=== PATIENT | female | born 1990 | race Caucasian/White ===

== ENCOUNTER 2018-01-25 19:08 | Inpatient (IN) | payer OTHER ==
[~2018-01-25 19:08] MED LIST: FENTANYL CITR 100 MCG/2 ML IV ONE; ROPIVACAINE HCL 100 ML IV PRN
--- OUTSIDE RECORDS SUMMARY | 2018-01-25 19:10 | XMS REPORT ---
:1990 Author Organization eClinicalWorks Care Team Providers Name Role Phone Chris Edwards Provider Role Unavailable Allergies No Known Allergies Problems Problem Type Condition Code Onset Dates Condition Status Assessment Supervision of high risk O09.93 Active in third trimester Problem Hypertension affecting in O16.2 Active second trimester Problem Supervision of high risk O09.92 Active in second trimester Assessment Hypertension affecting in O16.3 Active third trimester Problem Frequent epistaxis R04.0 Active Problem Seasonal allergic rhinitis, J30.2 Active unspecified trigger Problem Hypertension affecting in O16.3 Active third trimester Problem Supervision of high risk O09.93 Active in third trimester Problem Maternal hypertension in third O16.3 Active trimester Problem Allergic rhinitis J30.9 Active Problem 28 weeks gestation of Z3A.28 Active Medications No Known Medications Results No Known Results Summary Purpose eClinicalWorks Submission
--- OUTSIDE RECORDS SUMMARY | 2018-01-25 19:10 | XMS REPORT ---
:1990 Author Organization eClinicalWorks Care Team Providers Name Role Phone Duval, Na Provider Role Unavailable Allergies, Adverse Reactions, Alerts Substance Reaction Event Type codeine Info Not Available Drug Allergy Problems Problem Type Condition Code Onset Dates Condition Status Assessment Frequent epistaxis R04.0 Active Problem Hypertension affecting in O16.2 Active second trimester Problem Supervision of high risk O09.92 Active in second trimester Assessment 28 weeks gestation of Z3A.28 Active Assessment Seasonal allergic rhinitis, J30.2 Active unspecified trigger Problem Frequent epistaxis R04.0 Active Problem Seasonal allergic rhinitis, J30.2 Active unspecified trigger Problem Hypertension affecting in O16.3 Active third trimester Problem Supervision of high risk O09.93 Active in third trimester Problem Maternal hypertension in third O16.3 Active trimester Problem Allergic rhinitis J30.9 Active Problem 28 weeks gestation of Z3A.28 Active Medications Medication Code Code Instructions Start End Date Status Dosage System Date [facility] [id number] 4 MG Orally September 28, Active 1 tablet on every 8 hrs 2018 the tongue and allow to dissolve Results No Known Results Summary Purpose eClinicalWorks Submission
--- OUTSIDE RECORDS SUMMARY | 2018-01-25 19:10 | XMS REPORT ---
[...] Start End Date Status Dosage System Date Desireeliam [facility] 80358390402 4 MG Orally September 28, Active 1 tablet on every 8 hrs 2018 the tongue and allow to dissolve Results No Known Results Summary Purpose eClinicalWorks Submission
--- OUTSIDE RECORDS SUMMARY | 2018-01-25 19:10 | XMS REPORT ---
[...] End Date Status Dosage System Date Desireeliam [facility] 17132262752 4 MG Orally September 28, Active 1 tablet on every 8 hrs 2018 the tongue and allow to dissolve Results No Known Results Summary Purpose eClinicalWorks Submission
--- OUTSIDE RECORDS SUMMARY | 2018-01-25 19:10 | XMS REPORT ---
:1990 Author Organization eClinicalWorks Care Team Providers Name Role Phone Chris Edwards Provider Role Unavailable Allergies No Known Allergies Problems Problem Type Condition Code Onset Dates Condition Status Assessment Maternal hypertension in third O16.3 Active trimester Problem Supervision of high risk O09.92 Active in second trimester Assessment Supervision of high risk O09.93 Active in third trimester Problem 28 weeks gestation of Z3A.28 Active Problem Frequent epistaxis R04.0 Active Problem Allergic rhinitis J30.9 Active Problem Maternal hypertension in third O16.3 Active trimester Problem Hypertension affecting in O16.2 Active second trimester Problem Seasonal allergic rhinitis, J30.2 Active unspecified trigger Problem Supervision of high risk O09.93 Active in third trimester Medications No Known Medications Results No Known Results Summary Purpose eClinicalWorks Submission
--- OUTSIDE RECORDS SUMMARY | 2018-01-25 19:10 | XMS REPORT ---
:1990 Author Organization eClinicalWorks Care Team Providers Name Role Phone Chris Edwards Provider Role Unavailable Allergies No Known Allergies Problems Problem Type Condition Code Onset Dates Condition Status Problem Hypertension affecting in O16.2 Active second trimester Problem Supervision of high risk O09.92 Active in second trimester Assessment Hypertension affecting in O16.3 Active third trimester Assessment Supervision of high risk O09.93 Active in third trimester Problem Frequent epistaxis R04.0 Active [...] End Date Status Dosage System Date Desireeliam [facility] [id number] 4 MG Orally September 28, Active 1 tablet on every 8 hrs 2018 the tongue and allow to dissolve Results No Known Results Summary Purpose eClinicalWorks Submission
[2018-01-25] MEDS ORDERED: Ringers Lactate 1,000 ML IV PRN (20:07)
[2018-01-25] MEDS ORDERED: PENICILLIN G POT 5 MU/100 ML BAG IV ONE (20:08)
[2018-01-25] MEDS ORDERED: PENICILLIN 5 MU in NA CHLORIDE 0.9% 100 ML IV ONE (20:16)
[2018-01-25 20:34] LABS: RPR Titer ND
[2018-01-25 20:40] LABS: Absolute Lymphocytes (CBC) 3.5 K/uL (0.7-4.9); Absolute Neutrophil 12.1 K/uL (1.8-8.0); Basophils % 0.5 % (0-1.3); Eosinophils % 0.7 % (0-4.4); Hematocrit 32.2 % (36.0-45.0); Lymphocytes % 20.8 % (15.3-44.8); MCH 23.4 pg (27.0-35.0); MPV 8.3 fL (7.6-11.3); Monocytes % 5.9 % (3.3-12.3); RBC Red Blood Cell Count 4.41 M/uL (3.86-4.86)
[2018-01-25] MEDS ORDERED: MAGNESIUM SULF/STERILE WATER 1,000 ML IV ONE (20:44)
[2018-01-25 20:45] LABS: Urine Appearance CLEAR; Urine Bilirubin NEGATIVE (NEG); Urine Blood NEGATIVE (NEG); Urine Color YELLOW; Urine Glucose NEGATIVE (NEG); Urine Protein NEGATIVE (NEG); Urine Urobilinogen 0.2 mg/dL (0.2-1.0); Urine pH 6.5 (5.0-7.0)
[2018-01-25 20:48] LABS: Urine Microscopic Reflex NO UMIC
[2018-01-25 20:55] LABS: ALT/SGPT 17 U/L (12-78); AST/SGOT 24 U/L (15-37); Albumin 2.8 g/dL (3.4-5.0); Alkaline Phosphatase 163 U/L (45-117); BUN Blood Urea Nitrogen 8 mg/dL (7-18); Bicarbonate 20 mmol/L (21-32); Bilirubin Direct < 0.1 mg/dL (0-0.2); Bilirubin Total 0.1 mg/dL (0.2-1.0); Glucose Level 75 mg/dL (74-106); Protein, Total 6.9 g/dL (6.4-8.2); Sodium Level 138 mmol/L (136-145); Uric Acid 4.3 mg/dL (2.6-6.0)
[2018-01-25] MEDS ORDERED: Ringers Lactate 1,000 ML IV SCH (21:00)
[2018-01-25] MEDS ORDERED: OXYTOCIN/LR 20 UNIT/1,000 ML BAG IV SCH (21:00)
[2018-01-25] MEDS ORDERED: FENTANYL CITR 100 MCG/2 ML ONE (21:38)
[2018-01-25] MEDS ORDERED: ROPIVACAINE HCL 100 ML IV ONE (21:38)
[2018-01-25 21:41] LABS: Protime INR 0.9
[2018-01-25] MEDS ORDERED: NA CHLORIDE 0.9% 200 ML IV ONE (22:51)
[2018-01-25] MEDS ORDERED: PENICILLIN G POT 5 MU/VIAL IV ONE (22:51)
[2018-01-25 23:53] LABS: RPR (Rapid Plasma Reagin) NON-REACT (NON-REACT)
[2018-01-26] MEDS ORDERED: PENICILLIN 2.5 MU in NA CHLORIDE 0.9% 100 ML IV SCH (00:01)
[2018-01-26 01:04] VITALS: BMI 34.2
[2018-01-26] MEDS ORDERED: LIDOCAINE 2% MPF 5 ML VIAL ONE (02:53)
[2018-01-26] MEDS ORDERED: CARBOPROST TROME 250 MCG/ML IM ONE (02:53)
[2018-01-26] MEDS ORDERED: DOCUSATE NA/SENNA CONC 1 TAB PO PRN (03:41)
[2018-01-26] MEDS ORDERED: ONDANSETRON 4 MG (ODT) TAB PO PRN (03:41)
[2018-01-26] MEDS ORDERED: ACETAMINOPHEN 500 MG TAB PO PRN (03:41)
[2018-01-26] MEDS ORDERED: Oxycodone HCl/Acetaminophen 1 TAB TAB PO PRN (03:41)
[2018-01-26] MEDS ORDERED: METHYLERGONOVINE 0.2 MG TAB PO PRN (03:41)
[2018-01-26] MEDS ORDERED: BISACODYL 10 MG RECTAL SUPP RECT PRN (03:41)
--- NOTE | 2018-01-26 03:50 | P.OP ---
Date of Service: 01/26/18 Findings and Operative Technique Patient delivered a viable male in cephalic presentation on 01/26/18 at 0320 AM over a midline episiotomy with a nuchal cord x 1 that was manually reduced. Nose and mouth were suctioned with a suction bulb. Cord was clamped and cut and was placed on mother's abdomen for skin to skin bonding. Attention was then turned to the placenta which was delivered with gentle traction. Episiotomy was noted to be a second degree which was repaired with a 2.0 vicryl in usual fashion. EBL was 250 cc. APGARS were 8/9. 's weight was found to be 6 lb 9 ounces. First stage of labor was 5 hours and 43 minutes. Second stage of labor was 20 minutes. Magnesium sulfate will be discontinued at 8AM. Labetalol will be restarted for chronic hypertension.
--- NOTE | 2018-01-26 05:10 | HP ---
Date of Admission: 01/25/2018 History Of Present Illness: Desirae is a 27-year-old, 5, para 1-0-3-1 who presents at 36 weeks and 6 days gestation for induction of labor due to superimposed preeclampsia. The patient was seen at the [facility] [place] 's office today and was reporting elevated blood pressures with blurry vision, headache and seeing spots. Therefore, he notified me immediately and recommended that she be delivered within 24 hours. The patient then presented here to Labor and Delivery and was found to be 3-4 cm dilated. Rupture of membranes was performed. Clear fluid was noted. The patient denies vaginal bleeding, was not leaking any fluid prior to admission, has been reporting irregular contractions. The patient has obtained care with me beginning at 8 weeks' gestation and has been compliant with all her visits. She has hypertension pre-existing therefore she has been on labetalol 100 mg twice a day and also has been taking baby aspirin. Due to her history of recurrent loss, she was supplemented with progesterone up to 12 weeks' gestation. She is considered a high-risk . Ultrasound done at the [facility] office today indicates LORI is 16, approximate weight is 6 pounds, vertex presentation. BPP is 8/8. See record for further details. Past Medical History: Includes depression and anxiety. Past Surgical History: Includes D and C x2 and childbirth. Social History: The patient is to the father of the baby. Denies tobacco, alcohol or drug use. Ob History: She had a prior delivery at 38 weeks. Length of labor was 12 hours , weight was 7 pounds 5 ounces, male infant delivered vaginally, induced due to hypertension. Family History: Significant for diabetes, hypertension, increased cholesterol, ovarian cancer. Physical Examination: Vital Signs: On admission, blood pressure is 147/75, respirations 18, afebrile , pulse is 88. General: The patient resting in bed, anxious and in mild pain. Head and Neck: Normocephalic, atraumatic. Heart: Regular rate and rhythm. Respiratory: Symmetric nonlabored breathing. Abdomen: Gravid. Extremities: Bilateral lower extremities no clubbing, cyanosis, or edema. Vaginal exam: 3-4 cm dilated, 60% effaced, -3 station. Rupture of membranes performed. Clear fluid noted. scalp electrode placed. heart rate monitoring is baseline of 140, moderate variability, no recurrent decelerations, accelerations noted, category II tracing. [place], contractions are occurring every 3-5 minutes. Mild intensity. Labs: Pending. Preeclamptic labs have been drawn. Assessment And Plan: Desirae is a 27-year-old 5, para 1-0-3-1 at 36 weeks and 6 days gestation with chronic hypertension, superimposed severe preeclampsia presents for induction of labor. Today, she denies any headache or visual changes, at this time. She states they were all present yesterday. She is being induced for severe preeclampsia. Rupture of membranes has been performed. Pitocin has been started. Magnesium sulfate will be started. Epidural will be placed momentarily. Anticipate a vaginal . BISI Voice ID: [id number] MTDD
[2018-01-26] MEDS: Oxycodone HCl/Acetaminophen 1 TAB TAB PO PRN ×3 (05:25→21:03)
[2018-01-26] MEDS: IBUPROFEN 200 MG TAB PO PRN ×2 (08:12→16:00)
[2018-01-26] MEDS: LABETALOL HCL 100 MG TAB PO SCH ×2 (08:43→21:05)
[2018-01-27] MEDS: Oxycodone HCl/Acetaminophen 1 TAB TAB PO PRN ×2 (03:51→09:30)
[2018-01-27 07:31] VITALS: BP 130/64; TEMP 97
[2018-01-27 08:08] LABS: Absolute Lymphocytes (CBC) 4.6 K/uL (0.7-4.9); Absolute Monocytes 0.6 K/uL (0.1-1.3); Absolute Neutrophil 5.3 K/uL (1.8-8.0); Basophils % 0.5 % (0-1.3); Eosinophils % 1.9 % (0-4.4); Hematocrit 30.6 % (36.0-45.0); Lymphocytes % 42.8 % (15.3-44.8); MCV 73.6 fL (80-100); MPV 7.8 fL (7.6-11.3); Monocytes % 5.9 % (3.3-12.3); RBC Red Blood Cell Count 4.15 M/uL (3.86-4.86)
[2018-01-29 03:32] LABS: HBsAG Nonreactive (Nonreactive)
--- NOTE | 2018-02-02 00:33 | P.DS ---
Admission Date: 01/25/18 Discharge Date: 01/26/18 Disposition: ROUTINE DISCHARGE Discharge Condition: GOOD Brief History of Present Illness: See H&P Hospital Course: Patient did well following the delivery. Patient blood pressure has been well controlled. She is bonding well with the baby. She is tolerating a regular diet. She is voiding without difficulty. Pain is well controlled. Vital Signs/Physical Exam: Temp Pulse Resp BP Pulse Ox 97.0 F 72 20 130/64 01/27/18 07:30 01/27/18 07:30 01/27/18 07:30 01/27/18 07:30 General: Alert, In no apparent distress HEENT: Atraumatic Neck: Supple Respiratory: Normal air movement Cardiovascular: No edema, Normal pulses Gastrointestinal: Soft and benign (fundus firm) Musculoskeletal: No clubbing, No swelling Integumentary: No rashes, No breakdown Laboratory Data at Discharge: WBC 10.8 K/uL (4.3-10.9) D 01/27/18 07:58 Hgb 9.5 g/dL (12.0-15.0) L 01/27/18 07:58 Hct 30.6 % (36.0-45.0) L 01/27/18 07:58 Plt Count 396 K/uL (152-406) 01/27/18 07:58 PT 10.6 SECONDS (9.5-12.5) 01/25/18 21:12 INR 0.90 01/25/18 21:12 APTT 22.8 SECONDS (24.3-36.9) L 01/25/18 21:12 Sodium 138 mmol/L (136-145) 01/25/18 19:50 Potassium 4.0 mmol/L (3.5-5.1) 01/25/18 19:50 BUN 8 mg/dL (7-18) 01/25/18 19:50 Creatinine 0.50 mg/dL (0.55-1.3) L 01/25/18 19:50 Glucose 75 mg/dL (74-106) 01/25/18 19:50 Uric Acid 4.3 mg/dL (2.6-6.0) 01/25/18 19:50 Total Bilirubin 0.1 mg/dL (0.2-1.0) L 01/25/18 19:50 AST 24 U/L (15-37) 01/25/18 19:50 ALT 17 U/L (12-78) 01/25/18 19:50 Alkaline Phosphatase 163 U/L (45-117) H 01/25/18 19:50 Home Medications: Folic Acid 1 tab PO DAILY 01/26/18 Labetalol HCl 1 tab PO BID 01/26/18 Potassium Chloride 1 tab PO DAILY 01/26/18 Vits #33/Iron/FA/Dha [Select-Ob + Dha Pack] 1 tab PO DAILY 01/26/18 Diet: Regular Activity: No lifting more than 10 lbs Followup: Chris Edwards, [ACTIVE - CAN ADMIT] - (Follow up with Dr. Edwards in 6 weeks. Call and make appointment.)
== END 2018-01-27 10:00 | disposition home health service (06) | DRG 775 ==
LOC: 2ND-WC 19:08
PROVIDERS: ADMIT Student in an Organized Health Care Education/Training Program; ATTEND Student in an Organized Health Care Education/Training Program
PROC: 10907ZC Drainage of Amniotic Fluid, Therapeutic from Products of Conception, Via Natural or Artificial Opening (ICD-10-PCS; principal; 2018-01-25)
PROC: 10E0XZZ Delivery of Products of Conception, External Approach (ICD-10-PCS; 2018-01-26)
PROC: 0W8NXZZ Division of Female Perineum, External Approach (ICD-10-PCS; 2018-01-26)
DX: O11.4 Pre-existing hypertension with pre-eclampsia, complicating childbirth (principal); O69.81X0 Labor and delivery complicated by cord around neck, without compression, not applicable or unspecified; Z3A.36 36 weeks gestation of pregnancy; Z37.0 Single live birth
CPT/HCPCS: 36415; 80048; 80076; 81003; 84550; 85025; 85610; 85730; 86592; 86850; 86900; 86901; 87340; 88307; J2590; J2795; J3010; J3475

== ENCOUNTER 2018-03-25 12:32 | Emergency (ER) | payer OTHER ==
--- OUTSIDE RECORDS SUMMARY | 2018-03-25 12:34 | XMS REPORT ---
[...] End Date Status Dosage System Date Desireeliam [facility] [id number] 4 MG Orally September 28, Active 1 tablet on every 8 hrs 2018 the tongue and allow to dissolve Results No Known Results Summary Purpose eClinicalWorks Submission
--- OUTSIDE RECORDS SUMMARY | 2018-03-25 12:34 | XMS REPORT ---
[...] Start End Date Status Dosage System Date [facility] [id number] 4 MG Orally September 28, Active 1 tablet on every 8 hrs 2018 the tongue and allow to dissolve Results No Known Results Summary Purpose eClinicalWorks Submission
--- OUTSIDE RECORDS SUMMARY | 2018-03-25 12:34 | XMS REPORT ---
:1990 Author Organization eClinicalWorks Care Team Providers Name Role Phone Chris Edwards Provider Role Unavailable Allergies No Known Allergies Problems Problem Type Condition Code Onset Dates Condition Status Problem Hypertension affecting in O16.2 Active second trimester Problem Supervision of high risk O09.92 Active in second trimester Problem Frequent epistaxis R04.0 Active Problem Seasonal allergic rhinitis, J30.2 Active unspecified trigger Problem Hypertension affecting in O16.3 Active third trimester Problem Supervision of high risk O09.93 Active in third trimester Problem Maternal hypertension in third O16.3 Active trimester Problem Allergic rhinitis J30.9 Active Problem 28 weeks gestation of Z3A.28 Active Medications Medication Code Code Instructions Start End Status Dosage System Date Date CitraNatal 90 [facility] 29818046998 90-1 & 300 MG February 12, Active as directed DHA Orally 2018 Results No Known Results Summary Purpose TellyinicalWorks Submission
--- OUTSIDE RECORDS SUMMARY | 2018-03-25 12:34 | XMS REPORT ---
[...] End Date Status Dosage System Date Desireeliam [facility] [id number] 4 MG Orally September 28, Active 1 tablet on every 8 hrs 2018 the tongue and allow to dissolve Results No Known Results Summary Purpose eClinicalWorks Submission
--- OUTSIDE RECORDS SUMMARY | 2018-03-25 12:34 | XMS REPORT ---
[...] End Date Status Dosage System Date Desireeliam [facility] 53227580364 4 MG Orally September 28, Active 1 tablet on every 8 hrs 2018 the tongue and allow to dissolve Results No Known Results Summary Purpose eClinicalWorks Submission
--- OUTSIDE RECORDS SUMMARY | 2018-03-25 12:35 | XMS REPORT ---
:1990 Author Organization eClinicalWorks Care Team Providers Name Role Phone NoemirowankianChris Provider Role Unavailable Allergies, Adverse Reactions, Alerts Substance Reaction Event Type codeine Info Not Available Drug Allergy Darvocet A500 Info Not Available Drug Allergy Benadryl Info Not Available Drug Allergy Problems Problem Type Condition Code Onset Dates Condition Status Problem Maternal hypertension in third O16.3 Active trimester Problem Allergic rhinitis J30.9 Active Problem Supervision of high risk O09.93 Active in third trimester Problem Acute vaginitis N76.0 Active Problem Encounter for routine Z39.2 Active follow-up Problem Other specified bacterial agents as B96.89 Active the cause of diseases classified elsewhere Problem Frequent epistaxis R04.0 Active Problem Seasonal allergic rhinitis, J30.2 Active unspecified trigger Problem Hypertension affecting in O16.3 Active third trimester Problem 28 weeks gestation of Z3A.28 Active Assessment Encounter for routine Z39.2 Active follow-up Assessment Acute vaginitis N76.0 Active Problem Hypertension affecting in O16.2 Active second trimester Assessment Other specified bacterial agents as B96.89 Active the cause of diseases classified elsewhere Problem Supervision of high risk O09.92 Active in second trimester Medications Medication Code Code Instructions Start End Status Dosage System Date Date Flagyl [facility] 74913016665 500 MG Orally Mar 11, Active 1 tablet every 12 hours 2017 Zofran ODT [facility] 70814954979 4 MG Orally September Active 1 tablet on every 8 hrs 2017 the tongue and allow to dissolve CitraNatal 90 [place] 70270843867 90-1 & 300 MG February 12, Active as directed DHA Orally 2017 Results Name Result Date Reference Range Unit Abnormality Flag URINALYSIS AUTO W/O SCOPE (27848) ----NIT neg [id number] ----URO 0.2 [id number] ----PROTEIN neg [id number] ----pH 6.0 [id number] ----BLO 1+ [id number] ----GLUCOSE neg [id number] ----LEODAN 1+ [id number] ----BILIRUBIN neg [id number] ----KETONES neg [id number] ----SPECIFIC GRAVITY 1.025 [id number] Summary Purpose eClinicalWorks Submission
--- NOTE | 2018-03-25 14:06 | ER ---
Nurse's Notes [facility] Name: Desirae Gracia Age: 27 yrs Sex: Female : 1990 Arrival Date: 03/25/2018 Time: 12:35 Bed 14 Private MD: Kristen Duval Diagnosis: Abscess of vaginal vault Presentation: 03/25 12:40 Presenting complaint: Patient states: She had a cyst on her vaginal that was drained aj1 one week ago, and told to follow up if it came back to have the cyst cut out in the OR. The cyst has come back, but her doctor is out of town so she was advised to come to the emergency room. Transition of care: patient was not received from another setting of care. Onset of symptoms was March 25, 2018. Risk Assessment: Do you want to hurt yourself or someone else? Patient reports no desire to harm self or others. Initial Sepsis Screen: Does the patient meet any 2 criteria? No. Patient's initial sepsis screen is negative. Does the patient have a suspected source of infection? No. Patient's initial sepsis screen is negative. Care prior to arrival: None. 12:40 Method Of Arrival: Ambulatory aj1 12:40 Acuity: CARMEN 4 aj1 Triage Assessment: 12:46 General: Appears in no apparent distress. uncomfortable, Behavior is calm, cooperative, aj1 appropriate for age. Pain: Complains of pain in pelvis Pain currently is 8 out of 10 on a pain scale. Neuro: Level of Consciousness is awake, alert, obeys commands. Cardiovascular: Patient's skin is warm and dry. Respiratory: Airway is patent Respiratory effort is even, unlabored, Respiratory pattern is regular, symmetrical. 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 - Social history:: Smoking status: Patient/guardian denies using tobacco. - Ebola Screening: : Patient denies travel to an Ebola-affected area in the 21 days before illness onset. Screenin:23 Abuse screen: Denies threats or abuse. Nutritional screening: No deficits noted. tw2 Tuberculosis screening: No symptoms or risk factors identified. Fall Risk None identified. Assessment: 13:10 Reassessment: pt states "i went to an OB DrLeny and she drained the cyst and she told me tw2 if it came back that I need to have surgery to remove it, now I called her again and she is out of town and my insurance runs out today, I was told an OB can come to the ER and drain it", provider notified. General: Appears in no apparent distress. well groomed, Behavior is calm, cooperative, appropriate for age. Pain: Complains of pain in pelvis. Neuro: Level of Consciousness is awake, alert, obeys commands, Oriented to person, place, time, situation. Cardiovascular: Denies chest pain, shortness of breath, Patient's skin is warm and dry. Respiratory: Airway is patent Respiratory effort is even, unlabored, Respiratory pattern is regular, symmetrical. GI: No signs and/or symptoms were reported involving the gastrointestinal system. : Reports vaginal pain. EENT: No signs and/or symptoms were reported regarding the EENT system. Derm: No signs and/or symptoms reported regarding the dermatologic system. Musculoskeletal: Range of motion: intact in all extremities. 14:20 Reassessment: Patient appears in no apparent distress at this time. No changes from tw2 previously documented assessment. Patient and/or family updated on plan of care and expected duration. Pain level reassessed. Patient is alert, oriented x 3, equal unlabored respirations, skin warm/dry/pink. Vital Signs: 12:46 BP 125 / 71; Pulse 70; Resp 18; Temp 97.4; Pulse Ox 97% on R/A; Weight 89.36 kg (R); aj1 Height 5 ft. 7 in. (170.18 cm); 14:19 BP 136 / 55; Pulse 61; Resp 17; Pulse Ox 98% on R/A; tw2 12:46 Body Mass Index 30.85 (89.36 kg, 170.18 cm) aj1 ED Course: 12:35 Patient arrived in ED. sb2 12:36 Kristen Duval MD is Private Physician. sb2 12:44 Triage completed. aj1 12:46 Arm band placed on. aj1 13:10 Bed in low position. Call light in reach. Pulse ox on. NIBP on. tw2 13:20 Nadine Chang, RN is Primary Nurse. tw2 13:27 Rajeev Correa PA is PHCP. jr8 13:27 Gustavo Barton MD is Attending Physician. jr8 14:20 No provider procedures requiring assistance completed. Patient did not have IV access tw2 during this emergency room visit. Administered Medications: No medications were administered Outcome: 14:06 Discharge ordered by . jr8 14:20 Patient left the ED. tw2 14:20 Discharged to home ambulatory. tw2 14:20 Condition: stable 14:20 Discharge instructions given to patient, Instructed on discharge instructions, follow up and referral plans. medication usage, Demonstrated understanding of instructions, follow-up care, medications, Prescriptions given X 1. Signatures: Jessica Kaur RN RN aj1 Rajeev Correa PA PA jr8 Nadine Chang, RN RN tw2 Sima Clemons sb2 Corrections: (The following items were deleted from the chart) 16:22 14:20 Discharge instructions given to patient, Instructed on discharge instructions, tw2 follow up and referral plans. medication usage, Demonstrated understanding of instructions, follow-up care, medications, Prescriptions given X 2, tw2
--- NOTE | 2018-03-25 14:06 | EDPHYS ---
Physician Documentation [facility] Name: Desirae Gracia Age: 27 yrs Sex: Female : 1990 Arrival Date: 03/25/2018 Time: 12:35 Bed 14 Private MD: Kristen Duval ED Physician Gustavo Barton HPI: 03/25 14:02 This 27 yrs old Female presents to ER via Ambulatory with complaints of jr8 Abscess. 14:02 Onset: The symptoms/episode began/occurred gradually, 2 week(s) ago. Associated signs jr8 and symptoms: The patient has no apparent associated signs or symptoms. Modifying factors: the symptoms are alleviated by nothing, the symptoms are aggravated by movement. Severity of symptoms: At their worst the symptoms were mild, in the emergency department the symptoms are unchanged. The patient has experienced a previous episode. Patient stated that she has an intravaginal inclusion cyst that was drained about 2 weeks ago. Stated that it is back again. Her OB is out of town and said to come to nearest ED for regulatory services consultant gynecology to remove it. 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 - Social history:: Smoking status: Patient/guardian denies using tobacco. - Ebola Screening: : Patient denies travel to an Ebola-affected area in the 21 days before illness onset. ROS: 14:02 Eyes: Negative for injury, pain, redness, and discharge, ENT: Negative for injury, jr8 pain, and discharge, Neck: Negative for injury, pain, and swelling, Cardiovascular: Negative for chest pain, palpitations, and edema, Respiratory: Negative for shortness of breath, cough, wheezing, and pleuritic chest pain, Abdomen/GI: Negative for abdominal pain, nausea, vomiting, diarrhea, and constipation, Back: Negative for injury and pain, MS/Extremity: Negative for injury and deformity, Skin: Negative for injury, rash, and discoloration, Neuro: Negative for headache, weakness, numbness, tingling, and seizure. 14:02 : Positive for pelvic pain. Exam: 14:02 Chest/axilla: Normal chest wall appearance and motion. Nontender with no deformity. jr8 No lesions are appreciated. Cardiovascular: Regular rate and rhythm with a normal S1 and S2. No gallops, murmurs, or rubs. Normal PMI, no JVD. No pulse deficits. Abdomen/GI: Soft, non-tender, with normal bowel sounds. No distension or tympany. No guarding or rebound. No evidence of tenderness throughout. Skin: Warm, dry with normal turgor. Normal color with no rashes, no lesions, and no evidence of cellulitis. MS/ Extremity: Pulses equal, no cyanosis. Neurovascular intact. Full, normal range of motion. Neuro: Awake and alert, GCS 15, oriented to person, place, time, and situation. Cranial nerves II-XII grossly intact. Motor strength 5/5 in all extremities. Sensory grossly intact. Cerebellar exam normal. Normal gait. Vital Signs: 12:46 BP 125 / 71; Pulse 70; Resp 18; Temp 97.4; Pulse Ox 97% on R/A; Weight 89.36 kg (R); aj1 Height 5 ft. 7 in. (170.18 cm); 14:19 BP 136 / 55; Pulse 61; Resp 17; Pulse Ox 98% on R/A; tw2 12:46 Body Mass Index 30.85 (89.36 kg, 170.18 cm) aj1 MDM: 13:27 Patient medically screened. jr8 14:02 Data reviewed: vital signs, nurses notes, and as a result, I will discharge patient. jr8 Data interpreted: Pulse oximetry: on room air is 97 %. Interpretation: normal. Counseling: I had a detailed discussion with the patient and/or guardian regarding: the historical points, exam findings, and any diagnostic results supporting the discharge/admit diagnosis, the need for outpatient follow up, an OB/Gyne specialist, to return to the emergency department if symptoms worsen or persist or if there are any questions or concerns that arise at home. ED course: Discussed with patient that Gynecology will not come down for an out patient procedure to remove inclusion cyst. That we are more then happy to look at it and drain it if possible. Patient would rather wait until her OB is back in town. Will put on antibiotics for the time being. . Administered Medications: No medications were administered Disposition: 16:50 Co-signature as Attending Physician, Gustavo Barton MD. rn Disposition: 03/25/18 14:06 Discharged to Home. Impression: Abscess of vaginal vault . - Condition is Stable. - Discharge Instructions: Skin Abscess. - Prescriptions for Clindamycin HCl 300 mg Oral Capsule - take 1 capsule by ORAL route every 6 hours for 10 days; 40 capsule. - Medication Reconciliation Form, Thank You Letter, Antibiotic Education, Prescription Opioid Use form. - Follow up: Private Physician; When: 5 - 6 days; Reason: Recheck today's complaints, Continuance of care, Re-evaluation by your physician. - Problem is new. - Symptoms are unchanged. Signatures: Jessica Kaur RN RN aj1 Gustavo Barton MD MD rn Roszak, Josh, PA PA jr8 Nadine Chang RN RN tw2 Corrections: (The following items were deleted from the chart) 14:20 14:06 03/25/2018 14:06 Discharged to Home. Impression: Abscess of vaginal vault . tw2 Condition is Stable. Forms are Medication Reconciliation Form, Thank You Letter, Antibiotic Education, Prescription Opioid Use. Follow up: Private Physician; When: 5 - 6 days; Reason: Recheck today's complaints, Continuance of care, Re-evaluation by your physician. Problem is new. Symptoms are unchanged. jr8
[2018-03-25 14:30] VITALS: TEMP 97.4
[2018-03-25 14:32] VITALS: BP 136/55; O2SAT 98
== END 2018-03-25 14:20 | disposition home or self-care (01) ==
LOC: ER 12:32
DX: N76.0 Acute vaginitis (principal); Z88.5 Allergy status to narcotic agent; Z88.8 Allergy status to other drugs, medicaments and biological substances
CPT/HCPCS: 99283

== ENCOUNTER 2018-04-06 23:51 | Emergency (ER) | payer OTHER, SELFPAY ==
[2018-04-07] MEDS ORDERED: LIDOCAINE 1% MPF 2 ML AMPULE ONE (01:22)
[2018-04-07] MEDS ORDERED: FENTANYL CITR 100 MCG/2 ML ONE (01:22)
--- NOTE | 2018-04-07 01:45 | ER ---
Nurse's Notes [facility] Name: Desirae Gracia Age: 27 yrs Sex: Female : 1990 Arrival Date: 04/06/2018 Time: 23:51 Bed 20 Private MD: Diagnosis: CUTANEOUS ABSCESS OF LABIA MAJORA Presentation: 04/07 00:26 Presenting complaint: Patient states: she has an abscess to her left perineal area bb which is getting significantly bigger and is painful. Pt is 2 months post- and is breast feeding. She also has a vaginal abscess which her ob-oracle specialist I\\T\\D but it has come back she was told it would have to be "cut out" pt just finished a 10 day course of antibiotics for that. Transition of care: patient was not received from another setting of care. Onset of symptoms was April 05, 2018. Risk Assessment: Do you want to hurt yourself or someone else? Patient reports no desire to harm self or others. Initial Sepsis Screen: Does the patient meet any 2 criteria? No. Patient's initial sepsis screen is negative. Does the patient have a suspected source of infection? No. Patient's initial sepsis screen is negative. Care prior to arrival: None. 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 - Social history:: Smoking status: Patient/guardian denies using tobacco, Patient/guardian denies using alcohol, street drugs. - Ebola Screening: : No symptoms or risks identified at this time. Screenin:33 Abuse screen: Denies threats or abuse. Nutritional screening: No deficits noted. jd3 Tuberculosis screening: No symptoms or risk factors identified. Fall Risk Ambulatory Aid- None/Bed Rest/Nurse Assist (0 pts). Gait- Normal/Bed Rest/Wheelchair (0 pts) Mental Status- Oriented to own ability (0 pts). Total Villa Fall Scale indicates No Risk (0-24 pts). Assessment: 00:32 General: Appears uncomfortable, Behavior is calm, cooperative, appropriate for age. jd3 Pain: Complains of pain in groin Quality of pain is described as sharp, Also complains of nausea. Neuro: Level of Consciousness is awake, alert, obeys commands, Oriented to person, place, time, situation. Cardiovascular: Capillary refill < 3 seconds Patient's skin is warm and dry. Respiratory: Airway is patent Respiratory effort is even, unlabored, Respiratory pattern is regular, symmetrical, Denies shortness of breath. GI: Abdomen is round non-distended, Bowel sounds present X 4 quads. Abd is soft and non tender X 4 quads. Reports nausea. : No signs and/or symptoms were reported regarding the genitourinary system. EENT: No signs and/or symptoms were reported regarding the EENT system. Derm: Skin is intact, Skin is dry, Skin is normal, Skin temperature is warm. Musculoskeletal: Circulation, motion, and sensation intact. Range of motion: intact in all extremities. 00:51 Reassessment: Patient appears in no apparent distress at this time. No changes from jd3 previously documented assessment. Patient and/or family updated on plan of care and expected duration. Pain level reassessed. Patient is alert, oriented x 3, equal unlabored respirations, skin warm/dry/pink. 01:39 Reassessment: Patient appears in no apparent distress at this time. Patient and/or jd3 family updated on plan of care and expected duration. Pain level reassessed. Patient is alert, oriented x 3, equal unlabored respirations, skin warm/dry/pink. provider at bedside. 01:55 Reassessment: Patient appears in no apparent distress at this time. Patient and/or jd3 family updated on plan of care and expected duration. Pain level reassessed. Patient is alert, oriented x 3, equal unlabored respirations, skin warm/dry/pink. reported understanding of discharge instructions, even steady gait upon discharge. Vital Signs: 00:30 BP 144 / 79; Pulse 78; Resp 16 S; Temp 97.6(O); Pulse Ox 98% on R/A; Weight 89.36 kg bb (R); Height 5 ft. 7 in. (170.18 cm) (R); Pain 10/10; 00:51 BP 125 / 63; Pulse 72; Resp 16 S; Pulse Ox 97% on R/A; jd3 01:39 BP 125 / 63; Pulse 71; Resp 16 S; Pulse Ox 97% on R/A; jd3 00:30 Body Mass Index 30.85 (89.36 kg, 170.18 cm) isabela ED Course: 04/06 23:51 Patient arrived in ED. ds1 04/07 00:20 Yaniv Celestin, RN is Primary Nurse. jd3 00:30 Triage completed. bb 00:30 Arm band placed on Patient placed in an exam room, on a stretcher, on pulse oximetry. bb 00:33 Karolina Dubois FNP-C is PHCP. snw 00:33 Sean Lockwood MD is Attending Physician. snw 00:34 Patient has correct armband on for positive identification. Bed in low position. Call jd3 light in reach. Side rails up X 1. Adult w/ patient. 01:18 Inserted saline lock: 20 gauge in left antecubital area, using aseptic technique. Blood mt collected. 01:54 No provider procedures requiring assistance completed. IV discontinued, intact, jd3 bleeding controlled, No redness/swelling at site. Pressure dressing applied. Administered Medications: 01:22 Drug: fentaNYL (PF) 50 mcg Route: IVP; Site: left antecubital; jd3 01:54 Follow up: Response: No adverse reaction jd3 01:38 Drug: Lidocaine (1 %) 6 ml {Note: to bedside for Karolina GARRIDOP-C to administer..} jd3 Route: Infiltration; 01:54 Follow up: Response: No adverse reaction jd3 Outcome: 01:45 Discharge ordered by . snw 01:54 Discharged to home ambulatory, with family. jd3 01:54 Condition: stable 01:54 Discharge instructions given to patient, Instructed on discharge instructions, follow up and referral plans. medication usage, Demonstrated understanding of instructions, follow-up care, medications, Prescriptions given X 1. 01:57 Patient left the ED. jd3 Signatures: Karolina Dubois, HOT TAMALE MAN-C HOT TAMALE MAN-Csnw Sweta Chaparro ds1 Shanta Ann RN RN Mary Casey mt, Jonathon, RN RN jd3
--- NOTE | 2018-04-07 01:45 | EDPHYS ---
Physician Documentation [facility] Name: Desirae Gracia Age: 27 yrs Sex: Female : 1990 Arrival Date: 04/06/2018 Time: 23:51 Bed 20 Private MD: ED Physician Sean Lockwood HPI: 04/07 01:12 This 27 yrs old Female presents to ER via Ambulatory with complaints of Cyst snw In Groin. 01:12 Pt with known 'inclusion cyst' drained per Dr. Edwards. just finished 10th day of snw antibiotics. Pt states she noted a small knot to left labia majora 3 days ago and now over the last three hours it has become very painful and tripled in size. Onset: The symptoms/episode began/occurred gradually, 3 day(s) ago, and became persistent today. Severity of symptoms: At their worst the symptoms were moderate. The patient has experienced a previous episode. The patient has been recently seen by a physician: recent delivery and I\T\D per Dr. Samaniego. 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 - Social history:: Smoking status: Patient/guardian denies using tobacco, Patient/guardian denies using alcohol, street drugs. - Ebola Screening: : No symptoms or risks identified at this time. ROS: 01:11 Constitutional: Negative for fever, chills, and weight loss, Eyes: Negative for injury, snw pain, redness, and discharge, ENT: Negative for injury, pain, and discharge, Neck: Negative for injury, pain, and swelling, Cardiovascular: Negative for chest pain, palpitations, and edema, Respiratory: Negative for shortness of breath, cough, wheezing, and pleuritic chest pain, Abdomen/GI: Negative for abdominal pain, nausea, vomiting, diarrhea, and constipation, Back: Negative for injury and pain, : Negative for injury, bleeding, discharge, and swelling, MS/Extremity: Negative for injury and deformity, Neuro: Negative for headache, weakness, numbness, tingling, and seizure. 01:11 Skin: Positive for abscess, of the left labia majora. Exam: 01:11 Constitutional: This is a well developed, well nourished patient who is awake, alert, snw and in no acute distress. Head/Face: Normocephalic, atraumatic. Eyes: Pupils equal round and reactive to light, extra-ocular motions intact. Lids and lashes normal. Conjunctiva and sclera are non-icteric and not injected. Cornea within normal limits. Periorbital areas with no swelling, redness, or edema. ENT: Nares patent. No nasal discharge, no septal abnormalities noted. Tympanic membranes are normal and external auditory canals are clear. Oropharynx with no redness, swelling, or masses, exudates, or evidence of obstruction, uvula midline. Mucous membranes moist. Neck: Trachea midline, no thyromegaly or masses palpated, and no cervical lymphadenopathy. Supple, full range of motion without nuchal rigidity, or vertebral point tenderness. No Meningismus. Chest/axilla: Normal chest wall appearance and motion. Nontender with no deformity. No lesions are appreciated. Cardiovascular: Regular rate and rhythm with a normal S1 and S2. No gallops, murmurs, or rubs. Normal PMI, no JVD. No pulse deficits. Respiratory: Lungs have equal breath sounds bilaterally, clear to auscultation and percussion. No rales, rhonchi or wheezes noted. No increased work of breathing, no retractions or nasal flaring. Abdomen/GI: Soft, non-tender, with normal bowel sounds. No distension or tympany. No guarding or rebound. No evidence of tenderness throughout. Back: No spinal tenderness. No costovertebral tenderness. Full range of motion. MS/ Extremity: Pulses equal, no cyanosis. Neurovascular intact. Full, normal range of motion. Neuro: Awake and alert, GCS 15, oriented to person, place, time, and situation. Cranial nerves II-XII grossly intact. Motor strength 5/5 in all extremities. Sensory grossly intact. Cerebellar exam normal. Normal gait. Psych: Awake, alert, with orientation to person, place and time. Behavior, mood, and affect are within normal limits. 01:11 Skin: Appearance: normal except for affected area, abscess, that is small, of the left labia majora, with induration. Vital Signs: 00:30 BP 144 / 79; Pulse 78; Resp 16 S; Temp 97.6(O); Pulse Ox 98% on R/A; Weight 89.36 kg bb (R); Height 5 ft. 7 in. (170.18 cm) (R); Pain 10/10; 00:51 BP 125 / 63; Pulse 72; Resp 16 S; Pulse Ox 97% on R/A; jd3 01:39 BP 125 / 63; Pulse 71; Resp 16 S; Pulse Ox 97% on R/A; jd3 00:30 Body Mass Index 30.85 (89.36 kg, 170.18 cm) bb MDM: 00:34 Patient medically screened. snw 01:48 Data reviewed: vital signs, nurses notes. Data interpreted: Pulse oximetry: on room air snw is 97 %. Interpretation: normal. Counseling: I had a detailed discussion with the patient and/or guardian regarding: the historical points, exam findings, and any diagnostic results supporting the discharge/admit diagnosis, the need for outpatient follow up, for definitive care. Special discussion: Based on the history and exam findings, there is no indication for further emergent testing or inpatient evaluation. I discussed with the patient/guardian the need to see the OB Gyne specialist for further evaluation of the symptoms. 04/07 01:05 Order name: I\T\D Setup; Complete Time: 01:14 snw Administered Medications: 01:22 Drug: fentaNYL (PF) 50 mcg Route: IVP; Site: left antecubital; jd3 01:54 Follow up: Response: No adverse reaction jd3 01:38 Drug: Lidocaine (1 %) 6 ml {Note: to bedside for Karolina MARCOS to administer..} jd3 Route: Infiltration; 01:54 Follow up: Response: No adverse reaction jd3 Disposition: 04:23 Co-signature as Attending Physician, Sean Lockwood MD. pkl Disposition: 04/07/18 01:45 Discharged to Home. Impression: CUTANEOUS ABSCESS OF LABIA MAJORA. - Condition is Stable. - Discharge Instructions: Skin Abscess, How to Take a Sitz Bath. - Prescriptions for Diclofenac Sodium 75 mg Oral Tablet Sustained Release - take 1 tablet by ORAL route 2 times per day; 30 tablet. - Medication Reconciliation Form, Thank You Letter, Antibiotic Education, Prescription Opioid Use form. - Follow up: Private Physician; When: 2 - 3 days; Reason: Recheck today's complaints, Continuance of care, Re-evaluation by your physician. Follow up: Emergency Department; When: As needed; Reason: Worsening of condition. Signatures: Sean Lockwood MD MD pkl Therrien, Shelly, HITCH TECHNICIAN-C HITCH TECHNICIAN-Csnw Shanta Ann RN RN Yaniv Dudley RN RN jd3 Corrections: (The following items were deleted from the chart) 01:57 01:45 04/07/2018 01:45 Discharged to Home. Impression: CUTANEOUS ABSCESS OF LABIA jd3 MAJORA. Condition is Stable. Forms are Medication Reconciliation Form, Thank You Letter, Antibiotic Education, Prescription Opioid Use. Follow up: Private Physician; When: 2 - 3 days; Reason: Recheck today's complaints, Continuance of care, Re-evaluation by your physician. Follow up: Emergency Department; When: As needed; Reason: Worsening of condition. snw
[2018-04-07 02:09] VITALS: TEMP 97.6
[2018-04-07 02:10] VITALS: BP 125/63; O2SAT 97
--- OUTSIDE RECORDS SUMMARY | 2018-04-07 08:16 | XMS REPORT ---
[...] Start End Date Status Dosage System Date [facility] [id number] 4 MG Orally September 28, Active 1 tablet on every 8 hrs 2018 the tongue and allow to dissolve Results No Known Results Summary Purpose eClinicalWorks Submission
--- OUTSIDE RECORDS SUMMARY | 2018-04-07 08:16 | XMS REPORT ---
[...] End Status Dosage System Date Date Flagyl [facility] [place]NOTE 2] [id number] 500 MG Orally Mar 11, Active 1 tablet every 12 hours 2017 Zofran ODT [facility] [place]NOTE 2] [id number] 4 MG Orally September Active 1 tablet on every 8 hrs 2017 the tongue and allow to dissolve CitraNatal 90 [place] [id number] 90-1 & 300 MG February 12, Active as directed DHA Orally 2017 Results Name Result Date Reference Range Unit Abnormality Flag URINALYSIS AUTO W/O SCOPE (41469) ----NIT neg [id number] ----URO 0.2 [id number] ----PROTEIN neg [id number] ----pH 6.0 [id number] ----BLO 1+ [id number] ----GLUCOSE neg [id number] ----LEODAN 1+ [id number] ----BILIRUBIN neg [id number] ----KETONES neg [id number] ----SPECIFIC GRAVITY 1.025 [id number] Summary Purpose eClinicalWorks Submission
--- OUTSIDE RECORDS SUMMARY | 2018-04-07 08:16 | XMS REPORT ---
[...] Date Desireeliam [facility] [id number] 4 MG Orally September 28, Active 1 tablet on every 8 hrs 2018 the tongue and allow to dissolve Results No Known Results Summary Purpose eClinicalWorks Submission
--- OUTSIDE RECORDS SUMMARY | 2018-04-07 08:16 | XMS REPORT ---
[...] End Date Status Dosage System Date Desireeliam [facility] [id number] 4 MG Orally September 28, Active 1 tablet on every 8 hrs 2018 the tongue and allow to dissolve Results No Known Results Summary Purpose eClinicalWorks Submission
--- OUTSIDE RECORDS SUMMARY | 2018-04-07 08:16 | XMS REPORT ---
[...] Status Dosage System Date Date CitraNatal 90 [facility] [id number] 90-1 & 300 MG February 12, Active as directed DHA Orally 2018 Results No Known Results Summary Purpose [employer] Submission
--- OUTSIDE RECORDS SUMMARY | 2018-04-07 08:16 | XMS REPORT ---
[...] End Date Status Dosage System Date Desireeliam [facility] [id number] 4 MG Orally September 28, Active 1 tablet on every 8 hrs 2018 the tongue and allow to dissolve Results No Known Results Summary Purpose eClinicalWorks Submission
== END 2018-04-07 01:57 | disposition home or self-care (01) ==
LOC: ER 23:51
DX: O86.19 Other infection of genital tract following delivery (principal); Z88.5 Allergy status to narcotic agent; Z88.8 Allergy status to other drugs, medicaments and biological substances
CPT/HCPCS: 96374; 99284; J2001; J3010

== ENCOUNTER 2021-10-22 18:06 | Emergency (ER) | payer OTHER ==
--- OUTSIDE RECORDS SUMMARY | 2021-10-22 18:10 | XMS REPORT | Continuity of Care Document ---
:1990 Author Organization [facility] t Address [address] [place] [address] Care Team Providers Name Role Phone Valerie Duval Attending Clinician Unavailable Jamaal Singh Attending Clinician Unavailable Eligio Chavez Attending Clinician Unavailable Vicente Siddiqui Attending Clinician Unavailable BRODERICK Attending Clinician Unavailable Amilcar_Jamaal Attending Clinician Unavailable Jamaal Singh Admitting Clinician Unavailable Valerie Gage Admitting Clinician Unavailable BRODERICK Admitting Clinician Unavailable Amilcar_Jamaal Admitting Clinician Unavailable Payers Payer Name Policy Type Policy Number Effective Date Expiration Date [facility] [id number] 2018 CHOICE (MEDICAID 00:00:00 REPLACEMENT - HMO) [facility] [id number] STRATEGIES Problems This patient has no known problems. Allergies, Adverse Reactions, Alerts Allergy Allergy Status Severity Reaction(s) Onset Inactive Treating Comm ents Source Name Type Date Date Clinician diphenhy DA Active MO hallucinatio HC A dramine ns 1-27 Clear 00:00: Castillo 00 [facility] propoxyp DA Active MO [facility] 9- Clear 00:00: Castillo 00 [facility] diphenhy DA Active U 2020-0 [facility] dramine 9 Clear 00:00: Castillo [facility] propoxyp DA Active MO H/A, 2020-0 [facility] hene ITCHING, 04-25 Clear [place] 00:00: Castillo [facility] diphenhy DA Active U hallucinatio 2020-0 HC A dramine ns 04-25 Clear 00:00: [place] [facility] propoxyp DA Active MO 2020-0 [facility] hene 8 Clear 00:00: [place] [facility] diphenhy DA Active U 2020-0 [facility] dramine 03-26 Clear 00:00: [place] [facility] propoxyp DA Active MO H/A, 2020-0 [facility] hene ITCHING, 03-26 Clear [place] 00:00: [place] [facility] diphenhy DA Active U hallucinatio 2020-0 HC A dramine ns 03-26 Clear 00:00: [place] [facility] propoxyp DA Active MO 2020-0 [facility] hene 8 Clear 00:00: [place] [facility] diphenhy DA Active U 2020-0 [facility] dramine 8 Clear 00:00: [place] [facility] propoxyp DA Active MO H/A, 2020-0 [facility] hene ITCHING, 8 Clear [place] 00:00: [place] [facility] diphenhy DA Active U hallucinatio 2020-0 HC A dramine ns 8 Clear 00:00: [place] [facility] propoxyp DA Active MO 2020-0 [facility] hene 8 Clear 00:00: [place] [facility] diphenhy DA Active U 2020-0 [facility] dramine 8 Clear 00:00: [place] [facility] propoxyp DA Active MO H/A, 2020-0 [facility] hene ITCHING, 8 Clear [place]ES 00:00: [place] [facility] diphenhy DA Active U hallucinatio 2020-0 HC A dramine ns 8-20 Clear 00:00: [place] [facility] propoxyp DA Active MO 2020-0 [facility] hene 8-14 Clear 00:00: [place] [facility] acetamin DA Active MO 2019-0 [facility] ophen 8-14 Clear 00:00: Castillo 00 [facility] diphenhy DA Active U 2020-0 [facility] dramine 8-14 Clear 00:00: Castillo 00 [facility] propoxyp DA Active MO H/A, [facility] hene ITCHING, 8-14 Clear NIGHTMARES 00:00: Castillo 00 [facility] acetamin DA Active MO H/A, H[facility] ophen ITCHING, 8-14 Clear NIGHTMARES 00:00: Castillo 00 [facility] diphenhy DA Active U hallucinatio 2019- HC A dramine ns 8-14 Clear 00:00: [place] [facility] [place] [address] [facility] dramine 2-10 Clear 00:00: Castillo 00 [facility] diphenhy DA Active U hallucinatio 2017-0 HC A dramine ns 2-10 Clear 00:00: Castillo 00 [facility] propoxyp DA Active MO 2015-07 [facility] hene 2-16 Clear 00:00: Castillo 00 [facility] acetamin DA Active MO 2015-07 [facility] ophen 2-16 Clear 00:00: Castillo 00 [facility] propoxyp DA Active MO H/A, 2015-07 [facility] hene ITCHING, 2-16 Clear NIGHTMARES 00:00: Castillo 00 [facility] acetamin DA Active MO H/A, 2015-07 [facility] ophen ITCHING, 2-16 Clear NIGHTMARES 00:00: Castillo 00 [facility] codeine Adverse Active Info Not [facility] Reaction Available [facility] Darvocet Adverse Active Info Not [facility] A500 Reaction Available [facility] Benadryl Adverse Active Info Not [facility] Reaction Available [facility] ent [facility] Medications Ordered Filled Start Stop Current Ordering Indication Dosage Frequency Signature Comments Components Source Medication Medication Date Date Medication? Clinician (SIG) Name Name Clotrimazol Clotrimazol 2017-07 Yes Na Duval [address] [facility] e e 2-20 [facility]atio [facility] 00 affected [facility] ent Clinics Procedures Procedure Date / Time Performed Performing Clinician [facility] vicente [id number] 2020-03-26 00:00:00 AKAED [facility] [id number] 2020-03-26 00:00:00 AKAED [facility] Encounters Start End Encounter Admission Attending Care Care Encounter Source Date/Time Date/Time Type Type Clinicians Facility Department ID 2021-10-22 Outpatient Duval, Na STLMLC STLMLC [id number] [facility] 14:43:00 [id number] [facility] 2021-10-14 Inpatient EL Samantha HCACL DAYS [id number] [facility] 14:00:00 Edesiri [id number] [facility] 2021-08-22 Inpatient EL Samantha HCACL DAYS [id number] [facility] 14:30:00 Edesiri [id number] [facility] 2021-08-21 Outpatient Duval, Na STLMLC STLMLC [id number] [facility] 13:52:23 [id number] [facility] 2021-08-21 Outpatient Duval, Na STLMLC STLMLC [id number] [facility] [facility] 12:08:33 [id number] [facility] 2021-08-21 Outpatient Duval, Na STLMLC STLMLC [id number] [facility] 12:08:15 [id number] [facility] 2021-08-21 Outpatient Duval, Na STLMLC STLMLC [id number] [facility] 12:07:41 [id number] [facility] 2021-08-21 Inpatient EL Samantha HCACL DAYS [id number] [facility] 07:30:00 Edesiri [id number] [facility] 2021-08-19 Inpatient EL Samantha HCACL DAYS [id number] [facility] 09:00:00 Edesiri [id number] [facility] 2021-08-15 Inpatient EL Samantha HCACL DAYS [id number] [facility] 07:30:00 Edesiri [id number] [facility] 2021-08-13 Inpatient EL Akajagbor, HCACL DAYS [id number] [facility] 14:30:00 Edesiri [id number] [facility] 2021-06-12 Outpatient Samantha, HCACL HCACL [id number] [facility] 12:30:58 Edesiri 18 [facility] 2020-04-27 Inpatient Akrodneygbor, HCACL DAYS [id number] [facility] 12:30:00 Edesiri [facility] 2020-04-25 Inpatient Akrodneygbor, HCACL DAYS [id number] [facility] 11:30:00 Edesiri [facility] 2020-03-21 Inpatient Marvingbsade, HCACL JEEVAN [id number] [facility] 13:25:00 Edesiri [id number] [facility] 2020-03-15 Inpatient Venkatesh HCACL JEVEAN [id number] [facility] 15:15:00 Gabi [facility] 2020-03-09 Inpatient Venkatesh HCACL JEEVAN [id number] [facility] 18:24:00 Gabi [id number] [facility] 2020-03-08 Inpatient Artur, HCACL JEEVAN [id number] [facility] 16:14:00 Rosemarie [id number] [facility] 2021-10-16 2021-10-16 Outpatient RAMIREZ Singh, HCACL HCACL [id number] [facility] 11:37:00 11:37:00 Edesiri 31 [facility] 2021-10-16 2021-10-16 Outpatient EL Samantha, HCACL DAYS [id number] [facility] 11:37:00 11:37:00 Edesiri [id number] [facility] 2021-08-26 2021-08-26 Outpatient RAMIREZ Singh, HCACL DAYS [id number] [facility] 08:30:00 08:30:00 Edesiri [id number] [facility] 2021-06-19 2021-06-19 Outpatient FRANCHESKA WEBER [facility] [id number] [place] 12:15:00 12:15:00 HN [id number] da [facility] [place] h Program 2021-06-12 2021-06-12 Outpatient ALLA Andino OUTD [id number] [facility] 11:13:00 11:13:00 Edesiri [id number] [facility] 2021-01-11 2021-01-11 [facility] [id number] 2020-06-20 2020-06-20 [facility] [id number] 2020-06-13 2020-06-13 Outpatient Raju_P MMG MMG [id number] [place] 02:34:00 02:34:00 [id number] 2020-04-24 2020-04-24 [facility] [id number] [facility] 2020-04-24 2020-04-24 [facility] [id number] [facility] 2020-03-26 2020-03-26 Outpatient ALLA Andino OUTD [id number] [facility] 11:00:00 11:00:00 Edesiri [id number] [facility] 2020-02-23 2020-02-23 Outpatient ALLA Andino OUTD [id number] [facility] 15:16:00 15:16:00 Edesiri [id number] [facility] 2018-11-12 2018-11-12 [facility] [id number] [facility] 13:48:00 13:48:00 t [employer] [facility] Medicine Medicine Outpati ent Clinics 2018-10-14 2018-10-14 [facility] [id number] 09:06:00 09:06:00 [facility] Outpati ent Clinics 2018-08-16 2018-08-16 [facility] [id number] 14:57:00 14:57:00 t [facility] L [facility] - Care Clinic [facility] 2018-07-14 2018-07-14 [facility] [id number] 10:23:00 10:23:[address] [facility] - Drive [facility] 2018-07-14 2018-07-14 [facility] [id number] 08:30:00 08:30:[address] Luke s - Drive [facility] 2018-05-10 2018-05-10 [facility] [id number] 15:47:00 15:47:00 t [facility] 2018-05-05 2018-05-05 [facility] [id number] 13:45:00 13:45:00 [facility] 2018-03-15 2018-03-15 [facility] [id number] 14:30:00 14:30:00 t [facility] L es - Care Clinic [facility] 2018-03-11 2018-03-11 [facility] [id number] 11:00:00 11:00:00 t Women's Women's Luke s - Care Care Clinic [facility] 2018-02-12 2018-02-12 [facility] [id number] 13:42:00 13:42:00 t Women's Women's Luke s - Care Care Clinic [facility] 2018-01-21 2018-01-21 [facility] [id number] 14:30:00 14:30:00 t Women's Women's Luke s - Care Care Clinic [facility] 2018-01-14 2018-01-14 [facility] [id number] 14:30:00 14:30:00 t Women's Women's Luke s - Care Care Clinic [facility] 2017-12-31 2017-12-31 Outpatient Amparo Christensent [id number] 14:15:00 14:15:00 t Women's Women's Luke s - Care Care [facility] 2017-12-17 2017-12-17 Outpatient Amparo Christensent [id number] 14:15:00 14:15:00 [facility] [employer] 2017-11-26 2017-11-26 Outpatient Amparo Christensent [id number] 15:00:00 15:00:00 t Women's Women's ke s - Care Care [facility] [employer] 2017-11-26 2017-11-26 Outpatient Amparo Christensent [id number] 10:00:00 10:00:00 t [employer] [place] s - Drive [facility] Results Test Description Test Time Test Comments Results Result Comments Source Novel Coronavirus 2019 Inhouse 2021-10-15 08:51:00 Test Item Value Reference Range Interpretation Comme nts Novel Coronavirus 2018 Negative Negative Posit rafael results are indicative of the Inhouse (test code = presenc e [id number] RNA, clinical COVNONPUI) correlation wit h patient historyand other diagnosti c information is necessary to de terminepatient infection status. Positiv e results do not rule outbacterial in fection or co-infection with other viru ses. Negative results do not preclude SA RS-CoV-2 infection andshould not b e used as the sole basis for patient man agementdecisions. Negative result s must be combined with otherclinical o bservations, patient history, and ep idemiologicalinformation. Detection of SA RS-CoV-2 RNA may be affected bysamp le collection methods, storage conditi ons, and/or stageof infection. Mildred l RNA mutations, vaccinations, a ntiviraltherapeutics, antibiotics, ch emotherapeutic orimmunosuppres karol drugs have not been evaluated for e ffectson detection. Results are for the identification of SARS-CoV-2 RNA usingreal-time (RT) polymerase ju n reaction (PCR) technologyfor t he qualitative detection of nucleic acid s from [id number]-PcE-2 virus and diagn osis of SARS-CoV-2 virusinfection. It is an Emergency Use Authorization ( EUA) testauthorized by the U.S. FDA. HCG SERUM [id number] 15:12:00 Test Item Value Reference Range Interpretation Comments HCG SERUM QUAL (test code = SERUM NEGATIVE NEGATIVE HCGQL) CBC W/AUTO [id number] 15:07:00 Test Item Value Reference Range Interpretation Comments WHITE BLOOD CELL (test code = 7.9 x10 3/uL 4.5-11.0 N WBC) RED BLOOD CELL (test code = 4.54 x10 6/uL 3.54-5.02 N RBC) HEMOGLOBIN (test code = HGB) 12.0 g/dL 11.0-15.0 N HEMATOCRIT (test code = HCT) 38.9 % 33.0-45.0 N MEAN CELL VOLUME (test code = 85.7 fL 81.0-99.0 N MCV) MEAN CELL HGB (test code = MCH) 26.4 pg 27.0-33.0 L MEAN CELL HGB CONCETRATION 30.8 g/dL 33.0-37.0 L (test code = MCHC) RED CELL DISTRIBUTION WIDTH CV 13.6 % 11.5-14.5 N (test code = RDW) RED CELL DISTRIBUTION WIDTH SD 42.6 fL 37.0-54.0 N (test code = RDW-SD) PLATELET COUNT (test code = 323 x10 3/uL 150-400 N PLT) MEAN PLATELET VOLUME (test code 10.1 fL 7.0-9.0 H = MPV) NEUTROPHIL % (test code = NT%) 46.0 % 56.0-77.0 L IMMATURE GRANULOCYTE % (test 0.1 % 0.0-2.0 N code = IG%) LYMPHOCYTE % (test code = LY%) 44.7 % 14.0-32.0 H MONOCYTE % (test code = MO%) 6.7 % 4.8-9.0 N EOSINOPHIL % (test code = EO%) 2.2 % 0.3-3.7 N BASOPHIL % (test code = BA%) 0.3 % 0.0-2.0 N NUCLEATED RBC % (test code = 0.0 % 0-0 N NRBC%) NEUTROPHIL # (test code = NT#) 3.63 x10 3/uL 2.0-7.6 N IMMATURE GRANULOCYTE # (test 0.01 x10 3/uL 0.00-0.03 N code = IG#) LYMPHOCYTE # (test code = LY#) 3.53 x10 3/uL 1.0-3.8 N MONOCYTE # (test code = MO#) 0.53 x10 3/uL 0.1-0.8 N EOSINOPHIL # (test code = EO#) 0.17 x10 3/uL 0.0-0.2 N BASOPHIL # (test code = BA#) 0.02 x10 3/uL 0.0-0.2 N NUCLEATED RBC # (test code = 0.00 x10 3/uL 0.0-0.1 N NRBC#) MANUAL DIFF REQUIRED (test code NO = MDIFF) Novel Coronavirus 2018 [id number] 06:39:00 Test Item Value Reference Range Interpretation Comments Novel Coronavirus Negative Negative Positive r esults are 2019 Inhouse (test indicativ e of the presence code = COVNONPUI) ofSARS-CoV -2 RNA, clinical correlation wit h patient historyand othe r diagnostic info rmation is necessary to determinepatien t infection status. Positiv e results do not rule out bacterial infection or co -infection with other viru ses. Negative result s do not preclude SARS-C oV-2 infection andsh ould not be used as the tank e basis for patient managementdecis ions. Negative result s must be combined with otherclinical observations, p atient history, and epidemiological information . Detection of SARS-CoV-2 RNA may be affe cted bysample collec tion methods, storag e conditions, and /or stageof infection. Mildred l RNA mutations, vacc inations, antiviraltherap eutics, antibiotics, chemotherapeuti c orimmunosuppres karol drugs have not been e valuated for effectson d etection. Results are for the identification of SARS-CoV-2 RNA usingreal-time (RT) polymerase ju n reaction (PCR) technolog yfor the qualitative det ection of nucleic acids f rom [id number]-1 v irus and diagnosis of SA RS-CoV-2 virusinfection. It is an Emergency Use Authorization ( EUA) testauthorized by the U.S. FDA. HCG SERUM [id number] 16:15:00 Test Item Value Reference Range Interpretation Comments HCG SERUM QUAL (test code = SERUM NEGATIVE NEGATIVE HCGQL) CBC W/AUTO [id number] 16:06:00 Test Item Value Reference Range Interpretation Comments WHITE BLOOD CELL (test code = 6.7 x10 3/uL 4.5-11.0 N WBC) RED BLOOD CELL (test code = 4.53 x10 6/uL 3.54-5.02 N RBC) HEMOGLOBIN (test code = HGB) 12.2 g/dL 11.0-15.0 N HEMATOCRIT (test code = HCT) 38.8 % 33.0-45.0 N MEAN CELL VOLUME (test code = 85.7 fL 81.0-99.0 N MCV) MEAN CELL HGB (test code = MCH) 26.9 pg 27.0-33.0 L MEAN CELL HGB CONCETRATION 31.4 g/dL 33.0-37.0 L (test code = MCHC) RED CELL DISTRIBUTION WIDTH CV 13.5 % 11.5-14.5 N (test code = RDW) RED CELL DISTRIBUTION WIDTH SD 41.8 fL 37.0-54.0 N (test code = RDW-SD) PLATELET COUNT (test code = 324 x10 3/uL 150-400 N PLT) MEAN PLATELET VOLUME (test code 10.1 fL 7.0-9.0 H = MPV) NEUTROPHIL % (test code = NT%) 54.3 % 56.0-77.0 L IMMATURE GRANULOCYTE % (test 0.1 % 0.0-2.0 N code = IG%) LYMPHOCYTE % (test code = LY%) 36.4 % 14.0-32.0 H MONOCYTE % (test code = MO%) 7.0 % 4.8-9.0 N EOSINOPHIL % (test code = EO%) 1.9 % 0.3-3.7 N BASOPHIL % (test code = BA%) 0.3 % 0.0-2.0 N NUCLEATED RBC % (test code = 0.0 % 0-0 N NRBC%) NEUTROPHIL # (test code = NT#) 3.62 x10 3/uL 2.0-7.6 N IMMATURE GRANULOCYTE # (test 0.01 x10 3/uL 0.00-0.03 N code = IG#) LYMPHOCYTE # (test code = LY#) 2.43 x10 3/uL 1.0-3.8 N MONOCYTE # (test code = MO#) 0.47 x10 3/uL 0.1-0.8 N EOSINOPHIL # (test code = EO#) 0.13 x10 3/uL 0.0-0.2 N BASOPHIL # (test code = BA#) 0.02 x10 3/uL 0.0-0.2 N NUCLEATED RBC # (test code = 0.00 x10 3/uL 0.0-0.1 N NRBC#) MANUAL DIFF REQUIRED (test code NO = IFF) - US PELVIS [id number] 00:00:00 [facility] 1990 Sex: F Name: ALLISON CELESTE [facility] : 1990 Age/S: 31 / F [address] [place] [address] Unit #: [id number] Loc: [place] [address] Phys: Pankaj Singh MD Acct: [id number] Dis Date: Status: REG CLI PHONE #: [phone] Exam Date: 06/12/2021 1216 FAX #: [phone] Reason: AUB. EXAMS: CPT CODE: [id number] US PELVIS COMPLETE [id number] PROCEDURE INFORMATION: Exam: US Pelvis Complete, Transabdominal and US Pelvis, Transvaginal Exam date and time: 06/12/2021 11:31 AM Age: 31 years old Clinical indication: Other: Aub TECHNIQUE: Imaging protocol: Real-time transabdominal and transvaginal pelvic ultrasound (complete) with image documentation. Transvaginal imaging was used forbetter evaluation of the endometrium, adnexa, and/or cervix. COMPARISON: US BIOPHYS PROF 03/09/2020 7:05 PM FINDINGS: Uterus: The uterus measures 7.8 x 4.5 x 5.7cm and demonstrates a 1 cm endometrial stripe. Right ovary/adnexa: The right ovary measures 3.9 x 1.8 x 2.2 cm and demonstrates a 1.7 cm complex dominant follicle with some internal echoes and increased through transmission of sound. No mass. Normal ovarian blood flow. Left ovary/adnexa: The left ovary measures 2.9 x 1.8 x 1.1 cm. No mass. Normal ovarian blood flow. Intraperitoneal space: No intraperitoneal fluid. Urinary bladder: Normal. IMPRESSION: 1. No acute findings. 2. Complex dominant follicle involvingthe right ovary, possibly hemorrhagic. at 1230 Reported and signed by: Destin Mackey M.D. CC: Pankaj Singh MD; Latrice Gage MD Technologist: Estela Ramsey RDMS(AB) Trnscb Date/Time: 06/12/2021 (1230) [email or web address] Orig Print D/T: S: 06/12/2021 (1230) Probe: PAGE 1 Signed Report- US TRANSVAGINAL NON [id number] 00:00:00 [facility] : 1990 Sex: F Name: ALLISON CELESTE [facility] : 1990 Age/S: 31 / F [address] [place] [address] Unit #: [id number] Loc: [place] [address] Phys: Pankaj Singh MD Acct: [id number] Dis Date: Status: REG CLI PHONE #: [phone] Exam Date: 06/12/2021 1216 FAX #: [phone] Reason: AUB. EXAMS: CPT CODE: [id number] [place] [id number] PROCEDURE INFORMATION: Exam: US Pelvis Complete, Transabdominal and US Pelvis, Transvaginal Exam date and time: 06/12/2021 11:31 AM Age: 31 years old Clinical indication: Other: Aub TECHNIQUE: Imaging protocol: Real-time transabdominal and transvaginal pelvic ultrasound (complete) with image documentation. Transvaginal imaging was used forbetter evaluation of the endometrium, adnexa, and/or cervix. COMPARISON: US BIOPHYS PROF 03/09/2020 7:05 PM FINDINGS: Uterus: The uterus measures 7.8 x 4.5 x 5.7cm and demonstrates a 1 cm endometrial stripe. Right ovary/adnexa: The right ovary measures 3.9 x 1.8 x 2.2 cm and demonstrates a 1.7 cm complex dominant follicle with some internal echoes and increased through transmission of sound. No mass. Normal ovarian blood flow. Left ovary/adnexa: The left ovary measures 2.9 x 1.8 x 1.1 cm. No mass. Normal ovarian blood flow. Intraperitoneal space: No intraperitoneal fluid. Urinary bladder: Normal. IMPRESSION: 1. No acute findings. 2. Complex dominant follicle involvingthe right ovary, possibly hemorrhagic. at 1230 Reported and signed by: Destin Mackey M.D. CC: Pankaj Singh MD; Latrice Gage MD Technologist: Estela Ramsey RDMS(AB) Trnscb Date/Time: 06/12/2021 (1230) [email or web address] Orig Print D/T: S: 06/12/2021 (1230) Probe: [id number] PAGE 1 Signed ReportSURGICAL PATH [id number] 08:32:00 RUN DATE: 05/02/20 [facility] *LIVE* PAGE 1 RUN TIME: 0832 Specimen Inquiry RUN USER: INTERFACE PATIENT: ALLISON CELESTE LOC: [facility] U #: [id number] AGE/SX: 29/F ROOM: RE04/27/20REG DR: Pankaj Singh MD : [birth year] BED: DIS: STATUS: DEP SDC TLOC: SPEC #: [id number] RECD: 04/30/20 STATUS: JOE MALLORY #: [id number] MARCO A: 04/30/[address]: Pankaj Singh MD ENTERED: 05/02/20 SP TYPE: SURG SPEC OTHR DR: DOES_NOT KNOW Latrice Gage MDORDERED: GM L4 [id number] CODES: [id number] - FALLOPIAN TUBE COPIES TO: DOES_NOT KNOW Pankaj Singh MD [address] [facility] [address] [place] [address] [email or web address] Latrice Gage MD [address] [facility] [address] [place] [address] [email or web address] PROCEDURES: GM L4 04808 (Incomplete) TISSUES: 1. FALLOPIAN TUBE, NOS - Fallopian tube, left, segment 2. FALLOPIAN TUBE, NOS - Fallopian tube, right, segment FINAL DIAGNOSIS Fallopian tube, left, segment: Complete cross section of fallopian tube. Fallopian tube, right, segment: Complete cross section of fallopian tube. GROSS AND MICROSCOPIC GROSS EXAMINATION: Received in formalin labeled left fallopian tube is a 6 cm in length 0.8 cm in diameter fallopian tube with fimbriated end (A). Received in formalin labeled right fallopian tube is 3.3 cm in length 1 cm in diameter fallopian tube with fimbriated end (B). MICROSCOPIC EXAMINATION: Sections of the bilateral fallopian tubes reveal complete cross section of fallopian tube. CONTINUED ON NEXT PAGE RUN DATE: 05/02/20 [facility] *LIVE* PAGE 2 RUN TIME: 32 Specimen Inquiry RUN USER: INTERFACE SPEC #: [id number] PATIENT: ALLISON CELESTE #[id number] (Continued) POST-OP DIAGNOSIS Multiparity, desires sterilization, family planning PRE-OP DIAGNOSISMultiparity, desires sterilization, family planning Signed SIGNATURE ON FILE MichaelElmer DO 05/02/20 0832 END OF REPORT Novel Coronavirus 2018 [id number] 09:10:00 Test Item Value Reference Range Interpretation Comments Novel Coronavirus Negative Negative Positive r esults are 2019 Inhouse (test indicativ e of the presence code = COVNONPUI) ofSARS-CoV -2 RNA, clinical correlation wit h patient historyand othe r diagnostic info rmation is necessary to determinepatien t infection status. Positiv e results do not rule out bacterial infection or co -infection with other viru ses. Negative result s do not preclude SARS-C oV-2 infection andsh ould not be used as the tank e basis for patient managementdecis ions. Negative result s must be combined with otherclinical observations, p atient history, and epidemiological information . Detection of SARS-CoV-2 RNA may be affe cted bysample collec tion methods, storag e conditions, and /or stageof infection. Mildred l RNA mutations, vacc inations, antiviraltherap eutics, antibiotics, chemotherapeuti c orimmunosuppres karol drugs have not been e valuated for effectson d etection. Results are for the identification of SARS-CoV-2 RNA usingthe Service Seeking M2000 Sy stem under the FDA Emergen cy UseAuthorizatio n. The testing is perf ormed by personneltraine d in the procedures for the Wummelbox000 molecular diagnostic SARS-CoV-2 assa y in vitro. CBC W/AUTO [id number] 13:03:00 Test Item Value Reference Range Interpretation Comments WHITE BLOOD CELL (test code = 9.68 x10 3/uL 4.5-11.0 WBC) RED BLOOD CELL (test code = 4.59 x10 6/uL 3.54-5.02 N RBC) HEMOGLOBIN (test code = HGB) 12.0 g/dL 11.0-15.0 N HEMATOCRIT (test code = HCT) 38.7 % 33.0-45.0 N MEAN CELL VOLUME (test code = 84.3 fL 81.0-99.0 N MCV) MEAN CELL HGB (test code = MCH) 26.1 pg 27.0-33.0 L MEAN CELL HGB CONCETRATION 31.0 g/dL 33.0-37.0 L (test code = MCHC) RED CELL DISTRIBUTION WIDTH CV 15.9 % 11.5-14.5 H (test code = RDW) RED CELL DISTRIBUTION WIDTH SD 49.1 fL 37.0-54.0 N (test code = RDW-SD) PLATELET COUNT (test code = 256 x10 3/uL 150-400 N PLT) MEAN PLATELET VOLUME (test code 11.0 fL 7.0-9.0 H = MPV) NEUTROPHIL % (test code = NT%) 64.2 % 56.0-77.0 N IMMATURE GRANULOCYTE % (test 0.4 % 0.0-2.0 N code = IG%) LYMPHOCYTE % (test code = LY%) 26.5 % 14.0-32.0 N MONOCYTE % (test code = MO%) 6.7 % 4.8-9.0 N EOSINOPHIL % (test code = EO%) 1.9 % 0.3-3.7 N BASOPHIL % (test code = BA%) 0.3 % 0.0-2.0 N NUCLEATED RBC % (test code = 0.0 % 0-0 N NRBC%) NEUTROPHIL # (test code = NT#) 6.21 x10 3/uL 2.0-7.6 N IMMATURE GRANULOCYTE # (test 0.04 x10 3/uL 0.00-0.03 H code = IG#) LYMPHOCYTE # (test code = LY#) 2.57 x10 3/uL 1.0-3.8 N MONOCYTE # (test code = MO#) 0.65 x10 3/uL 0.1-0.8 N EOSINOPHIL # (test code = EO#) 0.18 x10 3/uL 0.0-0.2 N BASOPHIL # (test code = BA#) 0.03 x10 3/uL 0.0-0.2 N NUCLEATED RBC # (test code = 0.00 x10 3/uL 0.0-0.1 N NRBC#) MANUAL DIFF REQUIRED (test code NO = MDIFF) PROTHROMBIN [id number] 12:59:00 Test Item Value Reference Range Interpretation Comments PROTHROMBIN TIME 11.4 SECONDS 9.3-12.9 N PATIENT (test code = PTP) INTERNATIONAL NORMAL 1.0 0.8-1.2 N TARGET RATIO (test code = INR BY IN DICATION INR) Indication INR1. Prophyl axis of venous thrombos is 2.0 - 3. 0 (orthopedic geovany suzette), Prophylaxis of venous thrombos is (other than hig h-risk surgery), [place] tment of Deep Vein Thrombosis/Pulm onary Embolism, Preve ntion of systemic emb olism - Tissue heart va lves, Acute Myocardia l Infarction (to prevent systemic embo lism), Valvular heart disease, Atri al Fibrillation, Bileaflet mecha nical valve in aortic position.2. Mec hanical prosthetic valv es (high risk), 2.5 - 3.5 Presence of Lupus Anticoagu lant or Antiphospholi pid Antibodies, Pre vention of systemic e mbolism - Acute Myocard ial Infarction (t o prevent recurre nt infarct). THROMBOPLASTIN TIME [id number] 12:59:00 Test Item Value Reference Range Interpretation Comments THROMBOPLASTIN TIME PARTIAL (test Seconds 25.0-39.5 code = PTT) PROTHROMBIN [id number] 12:59:00 Test Item Value Reference Range Interpretation Comments PROTHROMBIN TIME 11.4 SECONDS 9.3-12.9 N PATIENT (test code = PTP) INTERNATIONAL NORMAL 1.0 0.8-1.2 N TARGET RATIO (test code = INR BY IN DICATION INR) Indication INR1. Prophyl axis of venous thrombos is 2.0 - 3. 0 (orthopedic geovany suzette), Prophylaxis of venous thrombos is (other than hig h-risk surgery), [place] tment of Deep Vein Thrombosis/Pulm onary Embolism, Preve ntion of systemic emb olism - Tissue heart va lves, Acute Myocardia l Infarction (to prevent systemic embo lism), Valvular heart disease, Atri al Fibrillation, Bileaflet mecha nical valve in aortic position.2. Mec hanical prosthetic valv es (high risk), 2.5 - 3.5 Presence of Lupus Anticoagu lant or Antiphospholi pid Antibodies, Pre vention of systemic e mbolism - Acute Myocard ial Infarction (t o prevent recurre nt infarct). THROMBOPLASTIN TIME [id number] 12:59:00 Test Item Value Reference Range Interpretation Comments THROMBOPLASTIN TIME 31.7 Seconds 25.0-39.5 N Ther apeutic PARTIAL (test code = Range: 50.4 - 88.3 PTT) Seconds Effective 11/09/2018 HCG SERUM [id number] 12:53:00 Test Item Value Reference Range Interpretation Comments HCG SERUM QUAL (test code = SERUM NEGATIVE NEGATIVE HCGQL) RAPID PLASMA [id number] 11:50:00 Test Item Value Reference Range Interpretation Comments RAPID PLASMA REAGIN (test code = NONREACTIVE NONREACTIVE RPR) AG HEPATITIS B [id number] 11:50:00 Test Item Value Reference Range Interpretation Comments AG HEPATITIS B SURFACE NON REACTIVE INDEX NonReactive (test code = HBSAG) AB HIV 1 11:50:00 Test Item Value Reference Range Interpretation Comments AB HIV 1 2 (test code = NONREACTIVE INDEX NONREACTIVE [id number]) CBC W/AUTO [id number] 07:47:00 Test Item Value Reference Range Interpretation Comments WHITE BLOOD CELL (test code = 16.81 x10 3/uL 4.5-11.0 H WBC) RED BLOOD CELL (test code = 4.01 x10 6/uL 3.54-5.02 N RBC) HEMOGLOBIN (test code = HGB) 10.4 g/dL 11.0-15.0 L HEMATOCRIT (test code = HCT) 33.3 % 33.0-45.0 N MEAN CELL VOLUME (test code = 83.0 fL 81.0-99.0 N MCV) MEAN CELL HGB (test code = 25.9 pg 27.0-33.0 L MCH) MEAN CELL HGB CONCETRATION 31.2 g/dL 33.0-37.0 L (test code = MCHC) RED CELL DISTRIBUTION WIDTH CV 15.9 % 11.5-14.5 H (test code = RDW) RED CELL DISTRIBUTION WIDTH SD 48.4 fL 37.0-54.0 N (test code = RDW-SD) PLATELET COUNT (test code = 248 x10 3/uL 150-400 N PLT) MEAN PLATELET VOLUME (test 10.7 fL 7.0-9.0 H code = MPV) NEUTROPHIL % (test code = NT%) 78.5 % 56.0-77.0 H IMMATURE GRANULOCYTE % (test 0.6 % 0.0-2.0 N code = IG%) LYMPHOCYTE % (test code = LY%) 14.7 % 14.0-32.0 N MONOCYTE % (test code = MO%) 5.6 % 4.8-9.0 N EOSINOPHIL % (test code = EO%) 0.3 % 0.3-3.7 N BASOPHIL % (test code = BA%) 0.3 % 0.0-2.0 N NUCLEATED RBC % (test code = 0.0 % 0-0 N NRBC%) NEUTROPHIL # (test code = NT#) 13.20 x10 3/uL 2.0-7.6 H IMMATURE GRANULOCYTE # (test 0.10 x10 3/uL 0.00-0.03 H code = IG#) LYMPHOCYTE # (test code = LY#) 2.47 x10 3/uL 1.0-3.8 N MONOCYTE # (test code = MO#) 0.94 x10 3/uL 0.1-0.8 H EOSINOPHIL # (test code = EO#) 0.05 x10 3/uL 0.0-0.2 N BASOPHIL # (test code = BA#) 0.05 x10 3/uL 0.0-0.2 N NUCLEATED RBC # (test code = 0.00 x10 3/uL 0.0-0.1 N NRBC#) MANUAL DIFF REQUIRED (test NO code = MDIFF) COVID 19 Asymptomatic IH [id number] 20:08:00 Test Item Value Reference Range Interpretation Comments COVID 19 Asymptomatic Negative Negative A nega tive result is IH AG (test code = presumpti ve and should COVNONPUIAG) be confirmedwit h an FDA authorized mole cular assay, if neces luly forpatient caro gement.A positive result does not rule out co-inf ections withother patho gens.This test detects blanca th viable (live) and non-viable,SARS -CoV, and SARS-CoV-2. Michelle t performance dep ends on theamount of vi joshua (antigen) in th e sample.This michelle t has not been FDA cleare d or approved; the t est hasbeen authori zed by FDA under an Em ergency Use Authorizati on(EUA) for use by labo ratories certified under the CLIA thatmeet the requirements to perform moderate, high or waivedcomplexit y tests. RAPID PLASMA [id number] 15:48:00 Test Item Value Reference Range Interpretation Comments RAPID PLASMA REAGIN (test code = RPR) NONREACTIVE AG HEPATITIS B [id number] 15:48:00 Test Item Value Reference Range Interpretation Comments AG HEPATITIS B SURFACE NON REACTIVE INDEX NonReactive (test code = HBSAG) AB HIV 1 15:48:00 Test Item Value Reference Range Interpretation Comments AB HIV 1 2 (test code = NONREACTIVE INDEX NONREACTIVE [id number]) CBC W/AUTO [id number] 14:31:00 Test Item Value Reference Range Interpretation Comments WHITE BLOOD CELL (test code = 11.72 x10 3/uL 4.5-11.0 H WBC) RED BLOOD CELL (test code = 4.57 x10 6/uL 3.54-5.02 N RBC) HEMOGLOBIN (test code = HGB) 11.8 g/dL 11.0-15.0 N HEMATOCRIT (test code = HCT) 38.2 % 33.0-45.0 N MEAN CELL VOLUME (test code = 83.6 fL 81.0-99.0 N MCV) MEAN CELL HGB (test code = 25.8 pg 27.0-33.0 L MCH) MEAN CELL HGB CONCETRATION 30.9 g/dL 33.0-37.0 L (test code = MCHC) RED CELL DISTRIBUTION WIDTH CV 15.9 % 11.5-14.5 H (test code = RDW) RED CELL DISTRIBUTION WIDTH SD 48.6 fL 37.0-54.0 N (test code = RDW-SD) PLATELET COUNT (test code = 252 x10 3/uL 150-400 N PLT) MEAN PLATELET VOLUME (test 10.4 fL 7.0-9.0 H code = MPV) NEUTROPHIL % (test code = NT%) 70.9 % 56.0-77.0 N IMMATURE GRANULOCYTE % (test 0.8 % 0.0-2.0 N code = IG%) LYMPHOCYTE % (test code = LY%) 21.7 % 14.0-32.0 N MONOCYTE % (test code = MO%) 5.6 % 4.8-9.0 N EOSINOPHIL % (test code = EO%) 0.7 % 0.3-3.7 N BASOPHIL % (test code = BA%) 0.3 % 0.0-2.0 N NUCLEATED RBC % (test code = 0.0 % 0-0 N NRBC%) NEUTROPHIL # (test code = NT#) 8.32 x10 3/uL 2.0-7.6 H IMMATURE GRANULOCYTE # (test 0.09 x10 3/uL 0.00-0.03 H code = IG#) LYMPHOCYTE # (test code = LY#) 2.54 x10 3/uL 1.0-3.8 N MONOCYTE # (test code = MO#) 0.66 x10 3/uL 0.1-0.8 N EOSINOPHIL # (test code = EO#) 0.08 x10 3/uL 0.0-0.2 N BASOPHIL # (test code = BA#) 0.03 x10 3/uL 0.0-0.2 N NUCLEATED RBC # (test code = 0.00 x10 3/uL 0.0-0.1 N NRBC#) MANUAL DIFF REQUIRED (test NO code = MDIFF) URINALYSIS [id number] 14:27:00 Test Item Value Reference Range Interpretation Comments UA COLOR (test code = COLU) YELLOW YEL/STRAW UA APPEARANCE (test code = CLEAR CLEAR APPU) UA GLUCOSE DIPSTICK (test NEGATIVE NEGATIVE code = DGLUU) UA BILIRUBIN DIPSTICK (test NEGATIVE NEGATIVE code = BILU) UA KETONE DIPSTICK (test TRACE NEGATIVE A code = KETU) UA SPECIFIC GRAVITY (test 1.010 1.005-1.030 N code = SGU) UA BLOOD DIPSTICK (test NEGATIVE NEGATIVE code = GERSON) UA PH DIPSTICK (test code = 6.0 5.0-7.0 N RONAN) UA PROTEIN DIPSTICK (test NEGATIVE NEGATIVE code = PROU) UA UROBILINIOGEN DIPSTICK 0.2 mg/dL 0.2-1.0 (test code = URO) UA NITRITE DIPSTICK (test NEGATIVE NEGATIVE code = MARTA) UA LEUKOCYTE ESTERASE TRACE NEGATIVE A DIPSTICK (test code = LEUU) UA RBC (test code = RBCU) NONE SEEN RBC/HPF 0-3 UA WBC NO REFLEX (test code 0-3 WBC/HPF 0-3 = WBCUCL) UA BACTERIA (test code = TRACE /HPF NONE SEEN BACU) UA SQUAMOUS CELLS (test 6-10 /HPF NONE SEEN A code = SQU) UA TRANSITIONAL CELLS (test TRACE /HPF NONE SEEN code = TRANU) UA RENAL CELLS (test code = TRACE /HPF NONE SEEN A CT) UA MUCUS (test code = MUCU) TRACE /LPF NONE SEEN URINALYSIS [id number] 17:19:00 Test Item Value Reference Range Interpretation Comments UA COLOR (test code = COLU) YELLOW YEL/STRAW UA APPEARANCE (test code = APPU) SL CLOUDY CLEAR UA GLUCOSE DIPSTICK (test code = NEGATIVE NEGATIVE DGLUU) UA BILIRUBIN DIPSTICK (test code NEGATIVE NEGATIVE = BILU) UA KETONE DIPSTICK (test code = NEGATIVE NEGATIVE KETU) UA SPECIFIC GRAVITY (test code = 1.008 1.005-1.030 N SGU) UA BLOOD DIPSTICK (test code = NEGATIVE NEGATIVE GERSON) UA PH DIPSTICK (test code = RONAN) 6.0 5.0-7.0 N UA PROTEIN DIPSTICK (test code = NEGATIVE NEGATIVE PROU) UA UROBILINIOGEN DIPSTICK (test 0.2 mg/dL 0.2-1.0 code = URO) UA NITRITE DIPSTICK (test code = NEGATIVE NEGATIVE MARTA) UA LEUKOCYTE ESTERASE DIPSTICK 1+ NEGATIVE A (test code = LEUU) UA RBC (test code = RBCU) 0-3 RBC/HPF 0-3 UA WBC NO REFLEX (test code = 4-9 WBC/HPF 0-3 A WBCUCL) UA BACTERIA (test code = BACU) TRACE /HPF NONE SEEN UA SQUAMOUS CELLS (test code = 11-25 /HPF NONE SEEN A SQU) UA MUCUS (test code = MUCU) TRACE /LPF NONE SEEN UR PROTEIN/CREATININE [id number] 17:19:00 Test Item Value Reference Range Interpretation Comments UR PROTEIN RANDOM 8 mg/dL No te: Change in (test code = UNITS of MEASUR EMENT. PROTU) The Refe rence Range and Metho d Performance specificationsh ave not been establishe d for this fluid. The test resultshould be correlated into the clinical contex t forinterpretati on. UR CREATININE 48.0 mg/dL The Reference Range and RANDOM (test code Method Per formance = CREATU) specificationsh ave not been establishe d for this fluid. The test resultshould be correlated into the clinical contex t forinterpretati on. PROTEIN/CREATININE 0.17 RATIO (test code = P/CRATIO) URINALYSIS [id number] 17:17:00 Test Item Value Reference Range Interpretation Comments UA COLOR (test code = COLU) YELLOW YEL/STRAW UA APPEARANCE (test code = APPU) SL CLOUDY CLEAR UA GLUCOSE DIPSTICK (test code = NEGATIVE NEGATIVE DGLUU) UA BILIRUBIN DIPSTICK (test code NEGATIVE NEGATIVE = BILU) UA KETONE DIPSTICK (test code = NEGATIVE NEGATIVE KETU) UA SPECIFIC GRAVITY (test code = 1.008 1.005-1.030 N SGU) UA BLOOD DIPSTICK (test code = NEGATIVE NEGATIVE GERSON) UA PH DIPSTICK (test code = RONAN) 6.0 5.0-7.0 N UA PROTEIN DIPSTICK (test code = NEGATIVE NEGATIVE PROU) UA UROBILINIOGEN DIPSTICK (test 0.2 mg/dL 0.2-1.0 code = URO) UA NITRITE DIPSTICK (test code = NEGATIVE NEGATIVE MARTA) UA LEUKOCYTE ESTERASE DIPSTICK 1+ NEGATIVE A (test code = LEUU) UA RBC (test code = RBCU) 0-3 RBC/HPF 0-3 UA WBC NO REFLEX (test code = 4-9 WBC/HPF 0-3 A WBCUCL) UA BACTERIA (test code = BACU) TRACE /HPF NONE SEEN UA SQUAMOUS CELLS (test code = 11-25 /HPF NONE SEEN A SQU) UA MUCUS (test code = MUCU) TRACE /LPF NONE SEEN UR PROTEIN/CREATININE [id number] 17:17:00 Test Item Value Reference Range Interpretation Comments UR PROTEIN RANDOM (test code = PROTU) mg/dL UR CREATININE RANDOM (test code = mg/dL CREATU) PROTEIN/CREATININE RATIO (test code = P/CRATIO) COMPREHENSIVE METABOLIC [id number] 17:16:00 Test Item Value Reference Range Interpretation Comments SODIUM (test code = NA) 135 mEq/L 134-147 N POTASSIUM (test code = 3.6 mEq/L 3.4-5.0 N K) CHLORIDE (test code = 102 mEq/L 100-108 N CL) CARBON DIOXIDE (test 23 mEq/L 21-33 N code = CO2) ANION GAP (test code = 13 0-20 N GAP) GLUCOSE (test code = 110 mg/dL 70-110 N GLU) BLOOD UREA NITROGEN 7 mg/dL 7-18 N (test code = BUN) GLOMERULAR FILTRATION 143.9 105-110 H Units of measure = RATE (test code = GFR) ml/mi n/1.73 m2 CREATININE (test code = 0.5 mg/dL 0.6-1.3 L CREAT) TOTAL PROTEIN (test 6.8 g/dL 6.4-8.2 N code = PROT) ALBUMIN (test code = 3.20 g/dL 3.4-5.0 L ALB) CALCIUM (test code = 9.0 mg/dL 8.0-10.5 N CA) BILIRUBIN TOTAL (test 0.40 mg/dL 0.0-1.0 N code = BILT) SGOT/AST (test code = 14 IUnit/L 15-37 L AST) SGPT/ALT (test code = 13 IUnit/L 30-65 L ALT) ALKALINE PHOSPHATASE 146 IUnit/L 20-125 H TOTAL (test code = ALKP) URIC [id number] 17:16:00 Test Item Value Reference Range Interpretation Comments URIC ACID (test code = URIC) 6.3 mg/dL 2.6-7.2 LACTIC DEHYDROGENASE(LDH)[id number] 17:16:00 Test Item Value Reference Range Interpretation Comments LACTIC DEHYDROGENASE(LDH) (test 136 IUnits/L 84-246 N code = LDH) CBC W/AUTO [id number] 17:01:00 Test Item Value Reference Range Interpretation Comments WHITE BLOOD CELL (test code = 11.97 x10 3/uL 4.5-11.0 H WBC) RED BLOOD CELL (test code = 4.56 x10 6/uL 3.54-5.02 N RBC) HEMOGLOBIN (test code = HGB) 11.8 g/dL 11.0-15.0 N HEMATOCRIT (test code = HCT) 37.9 % 33.0-45.0 N MEAN CELL VOLUME (test code = 83.1 fL 81.0-99.0 N MCV) MEAN CELL HGB (test code = 25.9 pg 27.0-33.0 L MCH) MEAN CELL HGB CONCETRATION 31.1 g/dL 33.0-37.0 L (test code = MCHC) RED CELL DISTRIBUTION WIDTH CV 15.7 % 11.5-14.5 H (test code = RDW) RED CELL DISTRIBUTION WIDTH SD 47.0 fL 37.0-54.0 N (test code = RDW-SD) PLATELET COUNT (test code = 346 x10 3/uL 150-400 N PLT) MEAN PLATELET VOLUME (test 10.6 fL 7.0-9.0 H code = MPV) NEUTROPHIL % (test code = NT%) 70.5 % 56.0-77.0 N IMMATURE GRANULOCYTE % (test 1.1 % 0.0-2.0 N code = IG%) LYMPHOCYTE % (test code = LY%) 20.9 % 14.0-32.0 N MONOCYTE % (test code = MO%) 6.9 % 4.8-9.0 N EOSINOPHIL % (test code = EO%) 0.3 % 0.3-3.7 N BASOPHIL % (test code = BA%) 0.3 % 0.0-2.0 N NUCLEATED RBC % (test code = 0.0 % 0-0 N NRBC%) NEUTROPHIL # (test code = NT#) 8.43 x10 3/uL 2.0-7.6 H IMMATURE GRANULOCYTE # (test 0.13 x10 3/uL 0.00-0.03 H code = IG#) LYMPHOCYTE # (test code = LY#) 2.50 x10 3/uL 1.0-3.8 N MONOCYTE # (test code = MO#) 0.83 x10 3/uL 0.1-0.8 H EOSINOPHIL # (test code = EO#) 0.04 x10 3/uL 0.0-0.2 N BASOPHIL # (test code = BA#) 0.04 x10 3/uL 0.0-0.2 N NUCLEATED RBC # (test code = 0.00 x10 3/uL 0.0-0.1 N NRBC#) MANUAL DIFF REQUIRED (test NO code = MDIFF) UR CREATININE CLEARANCE [id number] 20:37:00 Test Item Value Reference Range Interpretation Comments CREATININE 150 MLS/MIN 70-130 H CLEARANCE RESULT (test code = CREATCLR) CREATININE (test 0.5 mg/dL 0.6-1.3 L code = CREAT) UR CREATININE 32.7 mg/dL The Reference Range and RANDOM (test code Method Per formance = CREATU) specificationsh ave not been establishe d for this fluid. The test resultshould be correlated into the clinical contex t forinterpretati on. UR CREATININE 1.1 GM/24HR 1.0-1.6 N 24HR (test code = [id number]) UR VOLUME (test 3300 mL code = VOL) UR COLLECTION 1440 MIN TIME (test code = COLTM) UR PROTEIN [id number] 20:37:00 Test Item Value Reference Range Interpretation Comments UR PROTEIN < 6 mg/dL Note: C hange in RANDOM (test UNITS of MEASUR EMENT. code = PROTU) The Ref erence Range and Method Perf ormance specificationsh ave not been establishe d for this fluid. The test resultshould be correlated into the clinic al context forinterpretati on. UR PROTEIN 24HR 198 MG/24HR 0-150 (test code = [id number]) UR CREATININE CLEARANCE [id number] 20:11:00 Test Item Value Reference Range Interpretation Comments CREATININE CLEARANCE RESULT (test MLS/MIN 70-130 code = CREATCLR) CREATININE (test code = CREAT) 0.5 mg/dL 0.6-1.3 L UR CREATININE RANDOM (test code = mg/dL CREATU) UR CREATININE 24HR (test code = GM/24HR 1.0-1.6 [id number]) UR VOLUME (test code = VOL) 3300 mL UR COLLECTION TIME (test code = 1440 MIN COLTM) UR PROTEIN [id number] 20:11:00 Test Item Value Reference Range Interpretation Comments UR PROTEIN RANDOM (test code = PROTU) mg/dL UR CREATININE CLEARANCE [id number] 20:03:00 Test Item Value Reference Range Interpretation Comments CREATININE CLEARANCE RESULT (test MLS/MIN 70-130 code = CREATCLR) CREATININE (test code = CREAT) mg/dL 0.6-1.3 UR CREATININE RANDOM (test code = mg/dL CREATU) UR CREATININE 24HR (test code = GM/24HR 1.0-1.6 [id number]) UR VOLUME (test code = VOL) 3300 mL UR COLLECTION TIME (test code = 1440 MIN COLTM) UR PROTEIN [id number] 20:03:00 Test Item Value Reference Range Interpretation Comments UR PROTEIN RANDOM (test code = PROTU) mg/dL - US BIOPHYS [id number] 19:46:00 Name: BASILALVAROGregoria Britton [facility] : 1990 Age/S: 29 / F [address] [place] [address] Unit #: [id number] Loc: Hi [id number] Phys: Claire Chavez MD Acct: [id number] Dis Date: Status: REG ER PHONE #: [phone] Exam Date: 03/09/20201939 FAX #: [phone] Reason: Decreased movements EXAMS: CPTCODE: [id number] US BIOPHYS PROF [id number] TRANSABDOMINAL OBSTETRICAL PELVIC ULTRASOUND, BIOPHYSICAL PROFILE INDICATION: Decreased movements. . CHANDNI 04/10/2020. TECHNIQUE: Transabdominal obstetrical pelvic ultrasound was performed with meeks scale and Doppler images. COMPARISONS: OB ultrasound 05/12/2016 FINDINGS: The cervix is exterior due to shadowing. The maternal urinary bladder appears normal as visualized. There is an anterior grade 2 placenta. There is no placenta previa or placental abruption. There is a single live intrauterine gestation in vertex presentation. The heart rate is 149 bpm. Biophysical profile: breathin/2 body movements: 2/2 Fetaltone: 2/2 Amniotic fluid: 2/2 Total score: 8/8. The amniotic fluid index is 11.75 cm. The deepest vertical pocket is 3.3 cm. The umbilical artery SD ratios range between 1.5 and 2.2, within normal limits. IMPRESSION: 1. There is a single live intrauterine gestation in vertex presentation. 2. Normal biophysical profile score of 8/8. 3. Normal amniotic fluid index of 11.8 cm. 4. No placenta previa or placental abruption. PAGE 1 Signed Report (CONTINUED) Name: ALLISON CELESTE [facility] : 1990 Age/S: 29 / F [address] [place] [address] Unit #: [id number] Loc: [place] [address] Phys: Claire Chavez MD Acct: [id number] Dis Date: Status: REG ER PHONE #: [phone] Exam Date: 03/09/20201939 FAX #: [phone] Reason: Decreased movements EXAMS: CPT CODE: [id number] US BIOPHYS PROF [id number] <Continued> at 194 Reported and signed by: Nella Elizabeth CC: Pankaj Singh MD; Latrice Gage MD Technologist: Jaun Holder RDMS(AB) Trnscb Date/Time: 03/09/2020 (1945) [id number] Orig Print D/T: S: 03/09/2020 (1948) Probe: PAGE 2 Signed Report COMPREHENSIVE METABOLIC [id number] 17:39:00 Test Item Value Reference Range Interpretation Comments SODIUM (test code = NA) 137 mEq/L 134-147 N POTASSIUM (test code = 3.6 mEq/L 3.4-5.0 N K) CHLORIDE (test code = 103 mEq/L 100-108 N CL) CARBON DIOXIDE (test 22 mEq/L 21-33 N code = CO2) ANION GAP (test code = 16 0-20 N GAP) GLUCOSE (test code = 87 mg/dL 70-110 N GLU) BLOOD UREA NITROGEN 7 mg/dL 7-18 N (test code = BUN) GLOMERULAR FILTRATION 143.9 105-110 H Units of measure = RATE (test code = GFR) ml/mi n/1.73 m2 CREATININE (test code = 0.5 mg/dL 0.6-1.3 L CREAT) TOTAL PROTEIN (test 6.4 g/dL 6.4-8.2 N code = PROT) ALBUMIN (test code = 2.80 g/dL 3.4-5.0 L ALB) CALCIUM (test code = 8.7 mg/dL 8.0-10.5 N CA) BILIRUBIN TOTAL (test 0.40 mg/dL 0.0-1.0 N code = BILT) SGOT/AST (test code = 17 IUnit/L 15-37 N AST) SGPT/ALT (test code = 12 IUnit/L 30-65 L ALT) ALKALINE PHOSPHATASE 121 IUnit/L 20-125 N TOTAL (test code = ALKP) URINALYSIS [id number] 17:35:00 Test Item Value Reference Range Interpretation Comments UA COLOR (test code = COLU) STRAW YEL/STRAW UA APPEARANCE (test code = CLEAR CLEAR APPU) UA GLUCOSE DIPSTICK (test code NEGATIVE NEGATIVE = DGLUU) UA BILIRUBIN DIPSTICK (test NEGATIVE NEGATIVE code = BILU) UA KETONE DIPSTICK (test code NEGATIVE NEGATIVE = KETU) UA SPECIFIC GRAVITY (test code 1.004 1.005-1.030 L = SGU) UA BLOOD DIPSTICK (test code = NEGATIVE NEGATIVE GERSON) UA PH DIPSTICK (test code = 7.0 5.0-7.0 N RONAN) UA PROTEIN DIPSTICK (test code NEGATIVE NEGATIVE = PROU) UA UROBILINIOGEN DIPSTICK 0.2 mg/dL 0.2-1.0 (test code = URO) UA NITRITE DIPSTICK (test code NEGATIVE NEGATIVE = MARTA) UA LEUKOCYTE ESTERASE DIPSTICK NEGATIVE NEGATIVE (test code = LEUU) UA RBC (test code = RBCU) 0-3 RBC/HPF 0-3 UA WBC NO REFLEX (test code = 0-3 WBC/HPF 0-3 WBCUCL) UA BACTERIA (test code = BACU) NONE SEEN /HPF NONE SEEN UA SQUAMOUS CELLS (test code = 0-5 /HPF NONE SEEN SQU) CBC W/AUTO [id number] 17:26:00 Test Item Value Reference Range Interpretation Comments WHITE BLOOD CELL (test code = 12.01 x10 3/uL 4.5-11.0 H WBC) RED BLOOD CELL (test code = 4.24 x10 6/uL 3.54-5.02 N RBC) HEMOGLOBIN (test code = HGB) 11.1 g/dL 11.0-15.0 N HEMATOCRIT (test code = HCT) 35.6 % 33.0-45.0 N MEAN CELL VOLUME (test code = 84.0 fL 81.0-99.0 N MCV) MEAN CELL HGB (test code = 26.2 pg 27.0-33.0 L MCH) MEAN CELL HGB CONCETRATION 31.2 g/dL 33.0-37.0 L (test code = MCHC) RED CELL DISTRIBUTION WIDTH CV 15.3 % 11.5-14.5 H (test code = RDW) RED CELL DISTRIBUTION WIDTH SD 45.8 fL 37.0-54.0 N (test code = RDW-SD) PLATELET COUNT (test code = 290 x10 3/uL 150-400 N PLT) MEAN PLATELET VOLUME (test 9.8 fL 7.0-9.0 H code = MPV) NEUTROPHIL % (test code = NT%) 70.0 % 56.0-77.0 N IMMATURE GRANULOCYTE % (test 1.2 % 0.0-2.0 N code = IG%) LYMPHOCYTE % (test code = LY%) 20.6 % 14.0-32.0 N MONOCYTE % (test code = MO%) 7.2 % 4.8-9.0 N EOSINOPHIL % (test code = EO%) 0.7 % 0.3-3.7 N BASOPHIL % (test code = BA%) 0.3 % 0.0-2.0 N NUCLEATED RBC % (test code = 0.0 % 0-0 N NRBC%) NEUTROPHIL # (test code = NT#) 8.38 x10 3/uL 2.0-7.6 H IMMATURE GRANULOCYTE # (test 0.15 x10 3/uL 0.00-0.03 H code = IG#) LYMPHOCYTE # (test code = LY#) 2.48 x10 3/uL 1.0-3.8 N MONOCYTE # (test code = MO#) 0.87 x10 3/uL 0.1-0.8 H EOSINOPHIL # (test code = EO#) 0.09 x10 3/uL 0.0-0.2 N BASOPHIL # (test code = BA#) 0.04 x10 3/uL 0.0-0.2 N NUCLEATED RBC # (test code = 0.00 x10 3/uL 0.0-0.1 N NRBC#) MANUAL DIFF REQUIRED (test NO code = MDIFF) URINALYSIS [id number] 16:57:00 Test Item Value Reference Range Interpretation Comments UA COLOR (test code = COLU) YELLOW YEL/STRAW UA APPEARANCE (test code = APPU) CLOUDY CLEAR A UA GLUCOSE DIPSTICK (test code = NEGATIVE NEGATIVE DGLUU) UA BILIRUBIN DIPSTICK (test code NEGATIVE NEGATIVE = BILU) UA KETONE DIPSTICK (test code = NEGATIVE NEGATIVE KETU) UA SPECIFIC GRAVITY (test code = 1.006 1.005-1.030 N SGU) UA BLOOD DIPSTICK (test code = NEGATIVE NEGATIVE GERSON) UA PH DIPSTICK (test code = RONAN) 8.0 5.0-7.0 H UA PROTEIN DIPSTICK (test code = NEGATIVE NEGATIVE PROU) UA UROBILINIOGEN DIPSTICK (test 0.2 mg/dL 0.2-1.0 code = URO) UA NITRITE DIPSTICK (test code = NEGATIVE NEGATIVE MARTA) UA LEUKOCYTE ESTERASE DIPSTICK 3+ NEGATIVE A (test code = LEUU) UA RBC (test code = RBCU) 0-3 RBC/HPF 0-3 UA WBC NO REFLEX (test code = >50 WBC/HPF 0-3 A WBCUCL) UA BACTERIA (test code = BACU) 1+ /HPF NONE SEEN A UA SQUAMOUS CELLS (test code = 11-25 /HPF NONE SEEN A SQU) UA MUCUS (test code = MUCU) TRACE /LPF NONE SEEN UA AMORPHOUS SEDIMENT (test code TRACE /HPF NONE = AMORU) COMPREHENSIVE METABOLIC [id number] 16:44:00 Test Item Value Reference Range Interpretation Comments SODIUM (test code = NA) 137 mEq/L 134-147 N POTASSIUM (test code = 3.9 mEq/L 3.4-5.0 N K) CHLORIDE (test code = 107 mEq/L 100-108 N CL) CARBON DIOXIDE (test 25 mEq/L 21-33 N code = CO2) ANION GAP (test code = 9 0-20 N GAP) GLUCOSE (test code = 85 mg/dL 70-110 N GLU) BLOOD UREA NITROGEN 6 mg/dL 7-18 L (test code = BUN) GLOMERULAR FILTRATION 116.6 105-110 H Units of measure = RATE (test code = GFR) ml/mi n/1.73 m2 CREATININE (test code = 0.6 mg/dL 0.6-1.3 N CREAT) TOTAL PROTEIN (test 7.0 g/dL 6.4-8.2 N code = PROT) ALBUMIN (test code = 2.60 g/dL 3.4-5.0 L ALB) CALCIUM (test code = 8.7 mg/dL 8.0-10.5 N CA) BILIRUBIN TOTAL (test 0.3 MG/DL <1.5 N code = BILT) SGOT/AST (test code = 12 IUnit/L 15-37 L AST) SGPT/ALT (test code = 15 IUnit/L 15-65 N ALT) ALKALINE PHOSPHATASE 115 IUnit/L 20-125 N TOTAL (test code = ALKP) URIC [id number] 16:44:00 Test Item Value Reference Range Interpretation Comments URIC ACID (test code = URIC) 4.1 mg/dL 2.6-7.2 N LACTIC DEHYDROGENASE(LDH)2020-02-23 16:44:00 Test Item Value Reference Range Interpretation Comments LACTIC DEHYDROGENASE(LDH) (test 146 IUnits/L 84-246 N code = LDH) COMPREHENSIVE METABOLIC [id number] 16:38:00 Test Item Value Reference Range Interpretation Comments SODIUM (test code = NA) 137 mEq/L 134-147 N POTASSIUM (test code = K) 3.9 mEq/L 3.4-5.0 N CHLORIDE (test code = CL) 107 mEq/L 100-108 N CARBON DIOXIDE (test code = CO2) 25 mEq/L 21-33 N ANION GAP (test code = GAP) 9 0-20 N GLUCOSE (test code = GLU) 85 mg/dL 70-110 N BLOOD UREA NITROGEN (test code = 6 mg/dL 7-18 L BUN) GLOMERULAR FILTRATION RATE (test 105-110 code = GFR) CREATININE (test code = CREAT) mg/dL 0.6-1.3 TOTAL PROTEIN (test code = PROT) g/dL 6.4-8.2 ALBUMIN (test code = ALB) g/dL 3.4-5.0 CALCIUM (test code = CA) 8.7 mg/dL 8.0-10.5 N BILIRUBIN TOTAL (test code = BILT) MG/DL <1.5 SGOT/AST (test code = AST) IUnit/L 15-37 SGPT/ALT (test code = ALT) IUnit/L 15-65 ALKALINE PHOSPHATASE TOTAL (test IUnit/L 20-125 code = ALKP) URIC [id number] 16:38:00 Test Item Value Reference Range Interpretation Comments URIC ACID (test code = URIC) mg/dL 2.6-7.2 LACTIC DEHYDROGENASE(LDH)2020-02-23 16:38:00 Test Item Value Reference Range Interpretation Comments LACTIC DEHYDROGENASE(LDH) (test IUnits/L 84-246 code = LDH) CBC W/AUTO [id number] 16:28:00 Test Item Value Reference Range Interpretation Comments WHITE BLOOD CELL (test code = 9.80 x10 3/uL 4.5-11.0 N WBC) RED BLOOD CELL (test code = 4.21 x10 6/uL 3.54-5.02 N RBC) HEMOGLOBIN (test code = HGB) 11.0 g/dL 11.0-15.0 N HEMATOCRIT (test code = HCT) 35.9 % 33.0-45.0 N MEAN CELL VOLUME (test code = 85.3 fL 81.0-99.0 N MCV) MEAN CELL HGB (test code = MCH) 26.1 pg 27.0-33.0 L MEAN CELL HGB CONCETRATION 30.6 g/dL 33.0-37.0 L (test code = MCHC) RED CELL DISTRIBUTION WIDTH CV 14.8 % 11.5-14.5 H (test code = RDW) RED CELL DISTRIBUTION WIDTH SD 46.3 fL 37.0-54.0 N (test code = RDW-SD) PLATELET COUNT (test code = 287 x10 3/uL 150-400 N PLT) MEAN PLATELET VOLUME (test code 10.0 fL 7.0-9.0 H = MPV) NEUTROPHIL % (test code = NT%) 65.8 % 56.0-77.0 N IMMATURE GRANULOCYTE % (test 0.9 % 0.0-2.0 N code = IG%) LYMPHOCYTE % (test code = LY%) 24.4 % 14.0-32.0 N MONOCYTE % (test code = MO%) 7.7 % 4.8-9.0 N EOSINOPHIL % (test code = EO%) 0.9 % 0.3-3.7 N BASOPHIL % (test code = BA%) 0.3 % 0.0-2.0 N NUCLEATED RBC % (test code = 0.0 % 0-0 N NRBC%) NEUTROPHIL # (test code = NT#) 6.45 x10 3/uL 2.0-7.6 N IMMATURE GRANULOCYTE # (test 0.09 x10 3/uL 0.00-0.03 H code = IG#) LYMPHOCYTE # (test code = LY#) 2.39 x10 3/uL 1.0-3.8 N MONOCYTE # (test code = MO#) 0.75 x10 3/uL 0.1-0.8 N EOSINOPHIL # (test code = EO#) 0.09 x10 3/uL 0.0-0.2 N BASOPHIL # (test code = BA#) 0.03 x10 3/uL 0.0-0.2 N NUCLEATED RBC # (test code = 0.00 x10 3/uL 0.0-0.1 N NRBC#) MANUAL DIFF REQUIRED (test code NO = MDIFF)
--- NOTE | 2021-10-22 21:13 | RAD REPORT ---
EXAM DESCRIPTION: RAD - Chest Single View - 10/22/2021 9:05 pm CLINICAL HISTORY: COUGH Chest pain. COMPARISON: No comparisons FINDINGS: Portable technique limits examination quality. The lungs are grossly clear. The heart is normal in size. No displaced fractures. IMPRESSION: No acute intrathoracic process suspected.
--- NOTE | 2021-10-22 21:13 | RAD REPORT ---
EXAM DESCRIPTION: RAD - Abdomen 1 View (KUB) - 10/22/2021 9:05 pm CLINICAL HISTORY: ABD PAIN Pain COMPARISON: No comparisons FINDINGS: The bowel gas pattern is non-obstructive. No evidence of free air or pneumatosis. No suspi cious calcifications. No significant bony findings. Small linear metallic object projects over the stomach and may be ingested.
[2021-10-22 22:02] LABS: Urine Blood 2+ (Negative); Urine Glucose Negative (Negative); Urine Protein Negative (Negative); Urine Specific Gravity >=1.030 (1.005-1.030); Urine pH 5.5 (5.0-7.0)
[2021-10-22 22:16] LABS: Absolute Lymphocytes (CBC) 2.8 K/uL (0.7-4.9); Hematocrit 36.8 % (36.0-45.0); Lymphocytes % 33.4 % (15.3-44.8); MPV 8.2 fL (7.6-11.3); RBC Red Blood Cell Count 4.46 M/uL (3.86-4.86)
[2021-10-22 22:35] LABS: ALT/SGPT 23 U/L (12-78); AST/SGOT 7 U/L (15-37); Alkaline Phosphatase 77 U/L (45-117); BUN Blood Urea Nitrogen 14 mg/dL (7-18); Bicarbonate 27 mmol/L (21-32); Bilirubin Total 0.3 mg/dL (0.2-1.0); Glucose Level 111 mg/dL (74-106); Lipase 104 U/L (73-393); Potassium 3.6 mmol/L (3.5-5.1); Protein, Total 7.8 g/dL (6.4-8.2); Sodium Level 138 mmol/L (136-145)
[2021-10-22] MEDS ORDERED: NA CHLORIDE 0.9% 1,000 ML ONE (22:52)
--- NOTE | 2021-10-22 23:46 | ER ---
Nurse's Notes [facility] Name: Desirae Gracia Age: 31 yrs Sex: Female : 1990 Arrival Date: 10/22/2021 Time: 18:12 Bed 7 Private MD: Diagnosis: Abdominal pain, unspecified;Foreign body in stomach;Foreign body of alimentary tract, part unspecified Presentation: 10/22 18:46 Chief complaint: Patient states: SWALLOWED PIECE OF TOOTH AT DENTIST TODAY. UTERINE bp PAIN AND D/C SINCE THIS AM. Coronavirus screen: At this time, the client does not indicate any symptoms associated with coronavirus-19. Ebola Screen: No symptoms or risks identified at this time. Initial Sepsis Screen: Does the patient meet any 2 criteria? HR > 90 bpm. No. Patient's initial sepsis screen is negative. Does the patient have a suspected source of infection? No. Patient's initial sepsis screen is negative. Risk Assessment: Do you want to hurt yourself or someone else? Patient reports no desire to harm self or others. Onset of symptoms was October 22, 2021 at 04:00. 18:46 Method Of Arrival: Ambulatory bp 18:46 Acuity: CARMEN 3 bp Triage Assessment: 18:48 General: Appears in no apparent distress. uncomfortable, Behavior is calm, cooperative, bp appropriate for age. Pain: Complains of pain in pelvis. EENT: No deficits noted. Neuro: No deficits noted. Cardiovascular: Rhythm is sinus tachycardia. Respiratory: No deficits noted. GI: No deficits noted. : No signs and/or symptoms were reported regarding the genitourinary system. Derm: No deficits noted. Musculoskeletal: No deficits noted. 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 - Social history:: Smoking status: Patient denies any tobacco usage or history of. Screenin:00 Abuse screen: Denies threats or abuse. Nutritional screening: No deficits noted. bb Tuberculosis screening: No symptoms or risk factors identified. Fall Risk None identified. Assessment: 20:00 General: Appears in no apparent distress. Behavior is calm, cooperative. Pain: bb Complains of pain in pelvis. Neuro: Level of Consciousness is awake, alert, obeys commands, Oriented to person, place, time, situation. Cardiovascular: Capillary refill < 3 seconds Patient's skin is warm and dry. Respiratory: Airway is patent Respiratory effort is even, unlabored, Respiratory pattern is regular. GI: Abdomen is non-distended. : Reports pelvic pain. Derm: Skin is pink, warm \T\ dry. Musculoskeletal: Circulation, motion, and sensation intact. 21:00 Reassessment: Patient is alert, oriented x 3, equal unlabored respirations, skin bb warm/dry/pink. awaiting orders. 23:18 Reassessment: Patient is alert, oriented x 3, equal unlabored respirations, skin bb warm/dry/pink. awaiting CT results, IV intact, patent with fluids infusing. 23:55 Reassessment: Patient is alert, oriented x 3, equal unlabored respirations, skin al4 warm/dry/pink. Vital Signs: 18:46 BP 135 / 93; Pulse 110; Resp 17; Temp 98; Pulse Ox 98% ; Weight 82.55 kg; Height 5 ft. bp 7 in. (170.18 cm); 23:18 BP 127 / 72; Pulse 77; Resp 16 S; Pulse Ox 98% on R/A; bb 18:46 Body Mass Index 28.50 (82.55 kg, 170.18 cm) bp ED Course: 18:12 Patient arrived in ED. ds1 18:47 Triage completed. bp 18:48 Arm band placed on. bp 20:00 Patient has correct armband on for positive identification. bb 20:17 Javy Ventura MD is Attending Physician. [facility] 21:07 Abdomen 1 View (KUB) XRAY In Process Unspecified. EDMS 21:07 Chest Single View XRAY In Process Unspecified. EDMS 21:53 Initial lab(s) drawn, by me, sent to lab. Urine collected: clean catch specimen, clear. bb Inserted saline lock: 20 gauge in left antecubital area, using aseptic technique. Blood collected. 22:05 Shanta Ann, RN is Primary Nurse. 23:07 CT Abd/Pelvis - IV Contrast Only In Process Unspecified. EDMS 23:55 EKG done, by ED staff, reviewed by Rajeev LONG. al4 10/23 00:02 No provider procedures requiring assistance completed. IV discontinued, intact, al4 bleeding controlled, No redness/swelling at site. Pressure dressing applied. 00:25 Primary Nurse role handed off by Shanta Ann, RN vc1 Administered Medications: 10/22 23:01 Drug: NS 0.9% 1000 ml Route: IV; Rate: 1 bolus; Site: left antecubital; bb 10/23 00:03 Follow up: Response: No adverse reaction; IV Status: Completed infusion; IV Intake: al4 900ml Intake: 00:03 IV: 900ml; Total: 900ml. al4 Outcome: 10/22 23:45 Discharge ordered by . london 10/23 00:02 Discharged to home ambulatory. al4 Condition: stable Discharge instructions given to patient, Instructed on discharge instructions, follow up and referral plans. medication usage, Demonstrated understanding of instructions, follow-up care, medications, Prescriptions given X 2. 00:03 Patient left the ED. al4 00:26 Patient left the ED. al4 00:30 Patient left the ED. vc1 Signatures: Dispatcher [employer] EDMS Javy Ventura MD MD cha Sanford, Demi ds1 Shanta Ann, Jaden Hennessy RN RN Braeden Mullins al4 Clare Payton, RN RN vc1 Corrections: (The following items were deleted from the chart) 10/22 22:05 21:00 Reassessment: Patient is alert, oriented x 3, equal unlabored respirations, skin bb warm/dry/pink. bb
--- NOTE | 2021-10-22 23:46 | EDPHYS ---
Physician Documentation [facility] Name: Desirae Gracia Age: 31 yrs Sex: Female : 1990 Arrival Date: 10/22/2021 Time: 18:12 Bed 7 Private MD: ED Physician Javy Ventura HPI: 10/22 21:15 This 31 yrs old Female presents to ER via Ambulatory with complaints of london Swallowed Foreign Body, Pain in Uterus. 21:15 swallow a bit possible. Onset: The symptoms/episode began/occurred 14 day(s) ago. london Severity of symptoms: At their worst the symptoms were moderate in the emergency department the symptoms are unchanged. The patient has not experienced similar symptoms in the past. 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 - Social history:: Smoking status: Patient denies any tobacco usage or history of. ROS: 21:16 Constitutional: Negative for fever, chills, and weight loss, Eyes: Negative for injury, london pain, redness, and discharge, ENT: Negative for injury, pain, and discharge, Neck: Negative for injury, pain, and swelling, Cardiovascular: Negative for chest pain, palpitations, and edema, Respiratory: Negative for shortness of breath, cough, wheezing, and pleuritic chest pain, Back: Negative for injury and pain, : Negative for injury, bleeding, discharge, and swelling, MS/Extremity: Negative for injury and deformity, Skin: Negative for injury, rash, and discoloration, Neuro: Negative for headache, weakness, numbness, tingling, and seizure, Psych: Negative for depression, anxiety, suicide ideation, homicidal ideation, and hallucinations, Allergy/Immunology: Negative for hives, rash, and allergies, Endocrine: Negative for neck swelling, polydipsia, polyuria, polyphagia, and marked weight changes, Hematologic/Lymphatic: Negative for swollen nodes, abnormal bleeding, and unusual bruising. 21:16 Abdomen/GI: Positive for abdominal pain, of the epigastric area and left upper quadrant. Exam: 21:16 Constitutional: This is a well developed, well nourished patient who is awake, alert, london and in no acute distress. Head/Face: Normocephalic, atraumatic. Eyes: Pupils equal round and reactive to light, extra-ocular motions intact. Lids and lashes normal. Conjunctiva and sclera are non-icteric and not injected. Cornea within normal limits. Periorbital areas with no swelling, redness, or edema. ENT: Nares patent. No nasal discharge, no septal abnormalities noted. Tympanic membranes are normal and external auditory canals are clear. Oropharynx with no redness, swelling, or masses, exudates, or evidence of obstruction, uvula midline. Mucous membranes moist. Neck: Trachea midline, no thyromegaly or masses palpated, and no cervical lymphadenopathy. Supple, full range of motion without nuchal rigidity, or vertebral point tenderness. No Meningismus. Chest/axilla: Normal chest wall appearance and motion. Nontender with no deformity. No lesions are appreciated. Cardiovascular: Regular rate and rhythm with a normal S1 and S2. No gallops, murmurs, or rubs. Normal PMI, no JVD. No pulse deficits. Respiratory: Lungs have equal breath sounds bilaterally, clear to auscultation and percussion. No rales, rhonchi or wheezes noted. No increased work of breathing, no retractions or nasal flaring. Abdomen/GI: Soft, non-tender, with normal bowel sounds. No distension or tympany. No guarding or rebound. No evidence of tenderness throughout. Back: No spinal tenderness. No costovertebral tenderness. Full range of motion. Skin: Warm, dry with normal turgor. Normal color with no rashes, no lesions, and no evidence of cellulitis. MS/ Extremity: Pulses equal, no cyanosis. Neurovascular intact. Full, normal range of motion. Neuro: Awake and alert, GCS 15, oriented to person, place, time, and situation. Cranial nerves II-XII grossly intact. Motor strength 5/5 in all extremities. Sensory grossly intact. Cerebellar exam normal. Normal gait. Psych: Awake, alert, with orientation to person, place and time. Behavior, mood, and affect are within normal limits. 10/23 00:29 ECG was reviewed by the Attending Physician. [facility] Vital Signs: 10/22 18:46 BP 135 / 93; Pulse 110; Resp 17; Temp 98; Pulse Ox 98% ; Weight 82.55 kg; Height 5 ft. bp 7 in. (170.18 cm); 23:18 BP 127 / 72; Pulse 77; Resp 16 S; Pulse Ox 98% on R/A; bb 18:46 Body Mass Index 28.50 (82.55 kg, 170.18 cm) bp MDM: 20:17 Patient medically screened. london 21:16 Differential diagnosis: coronary artery disease, Irritable bowel syndrome, myocardia london ischemia or infarction, non-specific abd pain. Data reviewed: vital signs, nurses notes, lab test result(s), radiologic studies, doppler, plain films. 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 Test interpretation: by ED physician or midlevel provider: plain radiologic studies. Counseling: I had a detailed discussion with the patient and/or guardian regarding: the historical points, exam findings, and any diagnostic results supporting the discharge/admit diagnosis, lab results, radiology results, the need for outpatient follow up. 10/22 21:15 Order name: CBC with Diff; Complete Time: 22:25 [facility] 10/22 21:15 Order name: CMP; Complete Time: 23:46 [facility] 10/22 20:18 Order name: Abdomen 1 View (KUB) XRAY; Complete Time: 22:25 london 10/22 20:18 Order name: Chest Single View XRAY; Complete Time: 22:25 [place]ondon 10/22 21:15 Order name: Lipase; Complete Time: 23:46 [facility] 10/22 22:02 Order name: Urine Dipstick-Ancillary; Complete Time: 22:25 EDWY 10/22 21:03 Order name: Urine Dipstick-Ancillary (obtain specimen); Complete Time: 22:01 [facility] 10/22 21:15 Order name: CT Abd/Pelvis - IV Contrast Only [facility] 10/22 21:15 Order name: IV Saline Lock; Complete Time: 22:01 [facility] 10/22 21:15 Order name: Labs collected and sent; Complete Time: 22:01 [facility] 10/22 23:47 Order name: EKG; Complete Time: 23:47 [facility] 10/22 23:47 Order name: EKG - Nurse/Tech; Complete Time: 00:02 [facility] EC/30 00:29 Rate is 72 beats/min. Rhythm is regular. QRS [place] is Normal. DC interval is normal. QRS [place]ondon interval is normal. QT interval is normal. No Q waves. T waves are Normal. No ST changes noted. Clinical impression: Normal ECG and No evidence of ischemia. Interpreted by me. Reviewed by me. Administered Medications: 10/22 23:01 Drug: NS 0.9% 1000 ml Route: IV; Rate: 1 bolus; Site: left antecubital; isabela 10/23 00:03 Follow up: Response: No adverse reaction; IV Status: Completed infusion; IV Intake: al4 900ml Disposition Summary: 10/22/21 23:45 Discharge Ordered Location: Home london Problem: new london Symptoms: have improved london Condition: Stable london Diagnosis - Abdominal pain, unspecified london - Foreign body in stomach london - Foreign body of alimentary tract, part unspecified london Followup: london - With: Private Physician - When: 2 - 3 days - Reason: Recheck today's complaints, Re-evaluation by your physician Discharge Instructions: - Discharge Summary Sheet london - Abdominal Pain, Adult london - Abdominal Pain, Adult, [id number] london - Swallowed Foreign Body, Adult london - Swallowed Foreign Body, Adult, [id number] london Forms: - Medication Reconciliation Form [facility] - Thank You Letter london - Antibiotic Education [facility] - Prescription Opioid Use [facility] Prescriptions: - Ibuprofen 600 mg Oral Tablet - take 1 tablet by ORAL route every 6 hours As needed take with food; 30 tablet; [facility] Refills: 0, Product Selection Permitted - Pepcid 20 mg Oral Tablet - take 1 tablet by ORAL route every 12 hours for 15 days; 30 tablet; Refills: 0, [facility] Product Selection Permitted Signatures: Dispatcher [employer] Javy Wilhelm MD MD cha Ballard, Brenda, RN RN Jaden Manzo RN RN Braeden Dela Cruz4 Corrections: (The following items were deleted from the chart) 10/22 22:01 21:03 Urine Test ordered. london mar
[2021-10-23 01:50] VITALS: TEMP 98; O2SAT 98
[2021-10-23 02:02] VITALS: BP 127/72
--- NOTE | 2021-10-23 07:53 | EKG ---
Test Date: 2021-10-22 Test Time: 23:53:15 Worm Farmer: AMAYA MEASUREMENT RESULTS: Intervals: Rate: 72 WY: 160 QRSD: 94 QT: 394 QTc: 431 [place]ell: P: 61 WY: 160 QRS: 72 T: 35 INTERPRETIVE STATEMENTS: Normal sinus rhythm Normal ECG No previous ECG available for comparison Electronically Signed On 10-23-21 07:52:27 CDT by Quentin Martinez
--- NOTE | 2021-10-23 16:39 | RAD REPORT ---
EXAM DESCRIPTION: CT - Abdomen Pelvis W Contrast - 10/23/2021 6:44 am CLINICAL HISTORY: 31 years Female ABD PAIN TECHNIQUE: Contiguous axial images obtained through the abdomen and pelvis following intravenous con trast administration. Coronal and sagittal reformatted images provided. This CT exam was performed according to our departmental dose-optimization program, which includes on e or more of the following dose reduction techniques: automated exposure control, adjustment of the m A and/or kV according to patient size, and/or use of iterative reconstruction technique. COMPARISON: No prior exams provided for comparison. FINDINGS: The lung bases, liver, biliary tree, gallbladder, pancreas, spleen, adrenal glands, left k idney, uterus, adnexa, urinary bladder, and osseous structures demonstrate no acute findings. Punctate nonobstructing calculus in the lower pole of the right kidney. There is mild colonic constipation without bowel inflammation, obstruction, free intraperitoneal air, or ascites. The appendix is normal. IMPRESSION: Mild colonic constipation. No other acute abdominal or pelvic abnormalities. Normal appe ndix. Single nonobstructing intrarenal calculus on the right. Electronically signed by: Rabia Cain MD 10/22/2021 11:35 PM CDT Due to temporary technical issues with the PACS/Fluency reporting system, reports are being signed by the in house radiologists without review as a courtesy to insure prompt reporting. The interpreting radiologist is fully responsible for the content of the report.
== END 2021-10-23 00:30 | disposition home or self-care (01) ==
LOC: ER 18:06
DX: T18.2XXA Foreign body in stomach, initial encounter (principal); T18.9XXA Foreign body of alimentary tract, part unspecified, initial encounter; Z88.5 Allergy status to narcotic agent; Z88.8 Allergy status to other drugs, medicaments and biological substances
CPT/HCPCS: 93005; 85025; 36415; 81003; 83690; 80053; 74177; 74018; 71045; Q9967; J7030

== ENCOUNTER 2021-10-25 13:56 | Emergency (ER) | payer OTHER ==
--- OUTSIDE RECORDS SUMMARY | 2021-10-25 15:54 | XMS REPORT | Continuity of Care Document ---
:1990 Author Organization [facility] t Address [address] [place] [address] Care Team Providers Name Role Phone Aubrey Duval Attending Clinician Unavailable Jamaal Singh Attending Clinician Unavailable Eligio Chavez Attending Clinician Unavailable Vicente Siddiqui Attending Clinician Unavailable BRODERICK Attending Clinician Unavailable Amilcar_Jamaal Attending Clinician Unavailable Jamaal Singh Admitting Clinician Unavailable Aubrey Gage Admitting Clinician Unavailable BRODERICK Admitting Clinician Unavailable Amilcar_Jamaal Admitting Clinician Unavailable Payers Payer Name Policy Type Policy Number Effective Date Expiration Date [facility] [id number] 2018 CHOICE (MEDICAID 00:00:00 REPLACEMENT - HMO) [facility] [id number] STRATEGIES Problems This patient has no known problems. Allergies, Adverse Reactions, Alerts Allergy Allergy Status Severity Reaction(s) Onset Inactive Treating Comm ents Source Name Type Date Date Clinician diphenhy DA Active MO hallucinatio HC A dramine ns 1-27 Clear 00:00: Castillo [address] [facility] propoxyp DA Active MO [facility] 9-30 Clear 00:00: Castillo [address] [facility] diphenhy DA Active U 2020-0 [facility] dramine 9-30 Clear 00:00: Castillo [address] [facility] propoxyp DA Active MO H/A, 2020-0 [facility] he[facility] ITCHING, 9-30 Clear NIGHTMARES 00:00: Castillo [facility] diphenhy DA Active U hallucinatio 2020-0 HC A dramine ns 9 Clear 00:00: [place] [facility] propoxyp DA Active MO 2020-0 [facility] 8 Clear 00:00: Castillo [facility] diphenhy DA Active U 2020-0 [facility] dramine 8 Clear 00:00: [place] [facility] propoxyp DA Active MO H/A, 2020-0 [facility] hene ITCHING, 8 Clear [place]ES 00:00: [place] [facility] diphenhy DA Active U hallucinatio 2020-0 HC A dramine ns 03-26 Clear 00:00: [place] [facility] propoxyp DA Active MO 2020-0 [facility] hene 8- Clear 00:00: [place] [facility] diphenhy DA Active U 2020-0 [facility] dramine 8- Clear 00:00: [place] [facility] propoxyp DA Active MO H/A, 2020-0 [facility] hene ITCHING, 8- Clear [place]ES 00:00: [place] [facility] diphenhy DA Active U hallucinatio 2020-0 HC A dramine ns 8- Clear 00:00: [place] [facility] propoxyp DA Active MO 2020-0 [facility] hene 8-20 Clear 00:00: [place] [facility] diphenhy DA Active U 2020-0 [facility] dramine 8-20 Clear 00:00: Cast[place] [facility] propoxyp DA Active MO H/A, 2020-0 [facility] hene ITCHING, 8-20 Clear [place]MARES 00:00: [place] [facility] diphenhy DA Active U hallucinatio 2020-0 HC A dramine ns 8-20 Clear 00:00: [place] [facility] propoxyp DA Active MO 2020-0 [facility] hene 8-14 Clear 00:00: Castillo [facility] acetamin DA Active MO 2020-0 [facility] ophen 8-14 Clear 00:00: Castillo [address] [facility] diphenhy DA Active U 2020-0 [facility] dramine 8-14 Clear 00:00: Castillo [facility] propoxyp DA Active MO H/A, [facility] hene ITCHING, 8-14 Clear NIGHTMARES 00:00: Castillo [facility] acetamin DA Active MO H/A, HCA ophen ITCHING, 8-14 Clear NIGHTMARES 00:00: Castillo [facility] diphenhy DA Active U hallucinatio HC A dramine ns 8-14 Clear 00:00: Castillo [facility] diphenhy DA Active U 2017 [facility] dramine 2-10 Clear 00:00: Castillo [facility] diphenhy DA Active U hallucinatio 2017 HC A dramine ns 2-10 Clear 00:00: Castillo [facility] propoxyp DA Active MO 2015-07 [facility] hene 2-16 Clear 00:00: Castillo [facility] acetamin DA Active MO 2015-07 [facility] ophen 2-16 Clear 00:00: Castillo [facility] propoxyp DA Active MO H/A, 2015-07 [facility] hene ITCHING, 2-16 Clear NIGHTMARES 00:00: Castillo [facility] acetamin DA Active MO H/A, 2015-07 [facility] ophen ITCHING, 2-16 Clear NIGHTMARES 00:00: Castillo [facility] codeine Adverse Active Info Not [facility] Reaction Available [facility] Darvocet Adverse Active Info Not [facility] A500 Reaction Available [facility] Benadryl Adverse Active Info Not [facility] Reaction Available [facility] ent [facility] Medications Ordered Filled Start Stop Current Ordering Indication Dosage Frequency Signature Comments Components Source Medication Medication Date Date Medication? Clinician (SIG) Name Name Clotrimazol Clotrimazol 2017-07 Yes Na Duval [address] [facility] e e 2-20 [facility]atio [facility] affected [facility] ent Clinics Procedures Procedure Date / Time Performed Performing Clinician Courtney vicente [id number] 2020-03-26 00:00:00 AKAED [facility] [id number] 2020-03-26 00:00:00 AKAED [facility] Encounters Start End Encounter Admission Attending Care Care Encounter Source Date/Time Date/Time Type Type Clinicians Facility Department ID 2021-10-22 Outpatient Mukund, Na STLMLC STLMLC [id number] [facility] 14:43:00 [id number] [facility] 2021-10-14 Inpatient EL Samantah HCACL DAYS [id number] [facility] 14:00:00 Edesiri [id number] [facility] 2021-08-22 Inpatient EL Samantha HCACL DAYS [id number] [facility] 14:30:00 Edesiri [id number] [facility] 2021-08-21 Outpatient Mukund, Na STLMLC STLMLC [id number] [facility] 13:52:23 [id number] [facility] 2021-08-21 Outpatient Mukund, Kristen STLMLC STLMLC [id number] 12:08:33 [id number] [facility] 2021-08-21 Outpatient Mukund, Kristen STLMLC STLMLC [id number] [facility] 12:08:15 [id number] [facility] 2021-08-21 Outpatient Kristen Duval STLMLC STLMLC [id number] [facility] 12:07:41 [id number] [facility] 2021-08-21 Inpatient EL Samantha HCACL DAYS [id number] [facility] 07:30:00 Edesiri [id number] [facility] 2021-08-19 Inpatient EL Samantha, HCACL DAYS [id number] [facility] 09:00:00 Edesiri [id number] [facility] 2021-08-15 Inpatient EL Samantha HCACL DAYS [id number] [facility] 07:30:00 Edesiri [id number] [facility] 2021-08-13 Inpatient EL Samantha HCACL DAYS [id number] [facility] 14:30:00 Edesiri [id number] [facility] 2021-06-12 Outpatient Akajagbor, HCACL HCACL [id number] [facility] 12:30:58 Edesiri 18 [facility] 2020-04-27 Inpatient Akajagbor, HCACL DAYS [id number] [facility] 12:30:00 Edesiri [facility] 2020-04-25 Inpatient Akajagbor, HCACL DAYS [id number] [facility] 11:30:00 Edesiri [facility] 2020-03-21 Inpatient Akajagbor, HCACL JEEVAN [id number] [facility] 13:25:00 Edesiri [id number] [facility] 2020-03-15 Inpatient Venkatesh HCACL JEEVAN [id number] [facility] 15:15:00 Gabi [facility] 2020-03-09 Inpatient Venkatesh HCACL JEEVAN [id number] [facility] 18:24:00 Gabi [id number] [facility] 2020-03-08 Inpatient Siddiqui, HCACL JEEVAN [id number] [facility] 16:14:00 Rosemarie [id number] [facility] 2021-10-23 2021-10-23 ambulatory STLMLC STLMLC [id number] [facility] 2021-10-22 2021-10-22 ambulatory STLMLC STLMLC [id number] [facility] 2021-10-16 2021-10-16 Outpatient EL Akaelmo, HCACL HCACL [id number] [facility] 11:37:00 11:37:00 Edesiri 31 [facility] 2021-10-16 2021-10-16 Outpatient EL Akshaye, HCACL DAYS [id number] [facility] 11:37:00 11:37:00 Edesiri [id number] [facility] 2021-08-26 2021-08-26 Outpatient EL Akajagbor, HCACL DAYS [id number] [facility] 08:30:00 08:30:00 Edesiri [id number] [facility] 2021-06-19 2021-06-19 Outpatient FRANCHESKA WEBER 910 [place] 12:15:00 12:15:00 HN 1124 da [facility] 2021-06-12 2021-06-12 Outpatient SORIN AndinoABELARDO [facility] [id number] [facility] 11:13:00 11:13:00 Edesiri [id number] [facility] 2021-01-11 2021-01-11 Outpatient STLMLC STLMLC [id number] [facility] 2020-06-20 2020-06-20 Outpatient STLMLC STLMLC [id number] [facility] 2020-06-13 2020-06-13 Outpatient Raju_P MMG MMG [id number] [place] 02:34:00 02:34:00 [id number] 2020-04-24 2020-04-24 Outpatient STLMLC STLMLC [id number] [facility] 2020-04-24 2020-04-24 Outpatient STLMLC STLMLC [id number] [facility] 2020-03-26 2020-03-26 Outpatient SORIN AndinoABELARDO [facility] [id number] [facility] 11:00:00 11:00:00 Edesiri [id number] [facility] 2020-02-23 2020-02-23 Outpatient RAMIREZ Singh ALLA [facility] [id number] [facility] 15:16:00 15:16:00 Edesiri [facility] 2018-11-12 2018-11-12 [facility] [id number] 13:48:00 13:48:00 [employer] [place] [employer] [facility] 2018-10-14 2018-10-14 [facility] [id number] 09:06:00 09:06:00 [facility] - Care [facility] 2018-08-16 2018-08-16 [facility] [id number] 14:57:00 14:57:00 [facility] - Care [facility] 2018-07-14 2018-07-14 [facility] [id number] 10:23:00 10:23:00 [place] [employer] [facility] - [facility] 2018-07-14 2018-07-14 [facility] [id number] 08:30:00 08:30:[address] [facility] - [address] [facility] 2018-05-10 2018-05-10 [facility] [id number] 15:47:00 15:47:00 t [facility] - Care [facility] 2018-05-05 2018-05-05 [facility] [id number] 13:45:00 13:45:00 t [facility] - Care [facility] 2018-03-15 2018-03-15 [facility] [id number] 14:30:00 14:30:00 t [facility] - Care [facility] [place] 2018-03-11 2018-03-11 [facility] [id number] 11:00:00 11:00:00 t [facility] - [facility] Care [facility] 2018-02-12 2018-02-12 [facility] [id number] 13:42:00 13:42:00 t [facility] - [facility] Care [facility] 2018-01-21 2018-01-21 [facility] [id number] 14:30:00 14:30:00 t [facility] 2018-01-14 2018-01-14 [facility] [id number] 14:30:00 14:30:00 t [facility] - Care Care [facility] 2017-12-31 2017-12-31 [facility] [id number] 14:15:00 14:15:00 t [facility] 2017-12-17 2017-12-17 [facility] [id number] 14:15:00 14:15:00 t [facility] 2017-11-26 2017-11-26 [facility] [id number] 15:00:00 15:00:00 t [facility] - [facility] 2017-11-26 2017-11-26 [facility] [id number] 10:00:00 10:00:00 [employer] [place] [employer] [facility] Results Test Description Test Time Test Comments Results Result Comments Source Novel Coronavirus 2019 Inhouse 2021-10-15 08:51:00 Test Item Value Reference Range Interpretation Comme nts Novel Coronavirus 2018 Negative Negative Posit arfael results are indicative of the Inhouse (test code = presenc e mrWJDX-WgU-1 RNA, clinical COVNONPUI) correlation wit h patient [...] qualitative detection of nucleic acid s from disIXQJ-OgC-1 virus and diagn osis of SARS-CoV-2 virusinfection. It is an Emergency Use Authorization ( EUA) testauthorized by the U.S. FDA. HCG SERUM [id number] 15:12:00 Test Item Value Reference Range Interpretation Comments HCG SERUM QUAL (test code = SERUM NEGATIVE NEGATIVE HCGQL) CBC W/AUTO [id number] 15:07:00 Test Item Value Reference Range Interpretation [...] code NO = MDIFF) Novel Coronavirus 2018 [id number] 06:39:00 Test Item Value Reference Range Interpretation [...] det ection of nucleic acids f rom psaLEJJ-OqD-5 v irus and diagnosis of SA RS-CoV-2 virusinfection. It is an Emergency Use Authorization ( EUA) testauthorized by the U.S. FDA. HCG SERUM [id number] 16:15:00 Test Item Value Reference Range Interpretation Comments HCG SERUM QUAL (test code = SERUM NEGATIVE NEGATIVE HCGQL) CBC W/AUTO [id number] 16:06:00 Test Item Value Reference Range Interpretation [...] DIFF REQUIRED (test code NO = MDIFF) - US PELVIS [id number] 00:00:00 [facility]AGregoria Britton : 1990 Sex: F Name: DESIRAE GRACIA [facility] : 1990 Age/S: 31 / F [address] [place] [address] Unit #: [id number] Loc: [place] [address] Phys: Pankaj Singh MD Acct: [id number] Dis Date: Status: REG CLI PHONE #: [phone] Exam Date: 06/12/2021 1216 FAX #: [phone] Reason: AUB. EXAMS: CPT CODE: [id number] US PELVIS COMPLETE [id number] PROCEDURE INFORMATION: Exam: US Pelvis Complete, Transabdominal [...] MD; Latrice Gage MD Technologist: Estela Ramsey RDMS() Trnscb Date/Time: 06/12/2021 (1230) [email or web address] Orig Print D/T: S: 06/12/2021 (1230) Probe: PAGE 1 Signed Report- US TRANSVAGINAL NON [id number] 00:00:00 [facility] 1990 Sex: F Name: DESIRAE GRACIA [facility] [place] : 1990 Age/S: 31 / F [address] [place] [address] Blvd Unit #: [id number] Loc: [place] [address] Phys: Pankaj Singh MD Acct: [id number] Dis Date: Status: REG CLI PHONE #: [phone] Exam Date: 06/12/2021 1216 FAX #: [phone] Reason: AUB. EXAMS: CPT CODE: [id number] [place] [id number] PROCEDURE INFORMATION: Exam: US Pelvis Complete, Transabdominal [...] MD; Latrice Gage MD Technologist: Estela Ramsey RDMS() Trnscb Date/Time: 06/12/2021 (1230) GradyTDO Orig Print D/T: S: 06/12/2021 (1230) Probe: [id number] PAGE 1 Signed ReportSURGICAL PATH [id number] 08:32:00 RUN DATE: 05/02/20 [facility] *LIVE* PAGE 1 RUN TIME: 0832 Specimen Inquiry RUN USER: INTERFACE PATIENT: BASILDESIRAE Britton LOC: ABI U #: [id number] AGE/SX: 29/F ROOM: RE04/27/20REG DR: Pankaj Singh MD : [birth year] BED: DIS: STATUS: ADEN CALLAHAN TLOC: SPEC #: [id number] RECD: 04/30/20 STATUS: JOE MALLORY #: [id number] MARCO A: 04/30/[address] [facility] [address]: Pankaj Singh MD ENTERED: 05/02/20 SP TYPE: SURG SPEC OTHR DR: DOES_NOT KNOW Latrice Gage MDORDERED: GM L4 50400 CODES: [id number] - FALLOPIAN TUBE COPIES TO: DOES_NOT KNOW Pankaj Singh MD [address] [place] [address] [email or web address] Latrice Gage MD [address] [facility] [phone] [id number] [email or web address] PROCEDURES: GM L4 83586 (Incomplete) TISSUES: 1. FALLOPIAN TUBE, NOS - [...] CONTINUED ON NEXT PAGE RUN DATE: 05/02/20 [facility] *LIVE* PAGE 2 RUN TIME: 0832 Specimen Inquiry RUN USER: INTERFACE SPEC #: [id number] PATIENT: DESIRAE GRACIA Reba #[id number] (Continued) POST-OP DIAGNOSIS Multiparity, desires sterilization, family planning PRE-OP DIAGNOSISMultiparity, desires sterilization, family planning Signed SIGNATURE ON FILE AntoninaaubreyElmer DO 05/02/20 0832 END OF REPORT Novel Coronavirus 2018 [id number] 09:10:00 Test Item Value Reference Range Interpretation [...] for the identification of SARS-CoV-2 RNA usingthe [employer] M2000 Sy stem under the FDA Emergen cy UseAuthorizatio n. The testing is perf ormed by personneltraerlin d in the procedures for the [employer] M2000 molecular diagnostic SARS-CoV-2 assa y in vitro. CBC W/AUTO [id number] 13:03:00 Test Item Value Reference Range Interpretation [...] REQUIRED (test code NO = MDIFF) PROTHROMBIN [id number] 12:59:00 Test Item Value Reference Range Interpretation [...] Bileaflet mecha nical valve in aortic position.2. [facility] hanical prosthetic valv es (high risk), 2.5 - 3.5 Presence of Lupus Anticoagu lant or Antiphospholi pid Antibodies, Pre vention of systemic e mbolism - Acute Myocard ial Infarction (t o prevent recurre nt infarct). THROMBOPLASTIN TIME [id number] 12:59:00 Test Item Value Reference Range Interpretation Comments THROMBOPLASTIN TIME PARTIAL (test Seconds 25.0-39.5 code = PTT) PROTHROMBIN [id number] 12:59:00 Test Item Value Reference Range Interpretation [...] Bileaflet mecha nical valve in aortic position.2. [facility] hanical prosthetic valv es (high risk), 2.5 - 3.5 Presence of Lupus Anticoagu lant or Antiphospholi pid Antibodies, Pre vention of systemic e mbolism - Acute Myocard ial Infarction (t o prevent recurre nt infarct). THROMBOPLASTIN TIME [id number] 12:59:00 Test Item Value Reference Range Interpretation Comments THROMBOPLASTIN TIME 31.7 Seconds 25.0-39.5 N Ther apeutic PARTIAL (test code = Range: 50.4 - 88.3 PTT) Seconds Effective 11/09/2018 HCG SERUM [id number] 12:53:00 Test Item Value Reference Range Interpretation Comments HCG SERUM QUAL (test code = SERUM NEGATIVE NEGATIVE HCGQL) RAPID PLASMA [id number] 11:50:00 Test Item Value Reference Range Interpretation Comments RAPID PLASMA REAGIN (test code = NONREACTIVE NONREACTIVE RPR) AG HEPATITIS B [id number] 11:50:00 Test Item Value Reference Range Interpretation Comments AG HEPATITIS B SURFACE NON REACTIVE INDEX NonReactive (test code = HBSAG) AB HIV 1 11:50:00 Test Item Value Reference Range Interpretation Comments AB HIV 1 2 (test code = NONREACTIVE INDEX NONREACTIVE [id number]) CBC W/AUTO [id number] 07:47:00 Test Item Value Reference Range Interpretation [...] code = MDIFF) COVID 19 Asymptomatic IH [id number] 20:08:00 Test Item Value Reference Range Interpretation [...] high or waivedcomplexit y tests. RAPID PLASMA [id number] 15:48:00 Test Item Value Reference Range Interpretation Comments RAPID PLASMA REAGIN (test code = RPR) NONREACTIVE AG HEPATITIS B [id number] 15:48:00 Test Item Value Reference Range Interpretation Comments AG HEPATITIS B SURFACE NON REACTIVE INDEX NonReactive (test code = HBSAG) AB HIV 1 15:48:00 Test Item Value Reference Range Interpretation Comments AB HIV 1 2 (test code = NONREACTIVE INDEX NONREACTIVE KZQ34QY) CBC W/AUTO [id number] 14:31:00 Test Item Value Reference Range Interpretation [...] REQUIRED (test NO code = MDIFF) URINALYSIS [id number] 14:27:00 Test Item Value Reference Range Interpretation [...] = MUCU) TRACE /LPF NONE SEEN URINALYSIS [id number] 17:19:00 Test Item Value Reference Range Interpretation [...] MUCU) TRACE /LPF NONE SEEN UR PROTEIN/CREATININE [id number] 17:19:00 Test Item Value Reference Range Interpretation [...] 0.17 RATIO (test code = P/CRATIO) URINALYSIS [id number] 17:17:00 Test Item Value Reference Range Interpretation [...] MUCU) TRACE /LPF NONE SEEN UR PROTEIN/CREATININE [id number] 17:17:00 Test Item Value Reference Range Interpretation Comments UR PROTEIN RANDOM (test code = PROTU) mg/dL UR CREATININE RANDOM (test code = mg/dL CREATU) PROTEIN/CREATININE RATIO (test code = P/CRATIO) COMPREHENSIVE METABOLIC [id number] 17:16:00 Test Item Value Reference Range Interpretation [...] H TOTAL (test code = ALKP) URIC [id number] 17:16:00 Test Item Value Reference Range Interpretation Comments URIC ACID (test code = URIC) 6.3 mg/dL 2.6-7.2 LACTIC DEHYDROGENASE(LDH)2020-03-15 17:16:00 Test Item Value Reference Range Interpretation Comments LACTIC DEHYDROGENASE(LDH) (test 136 IUnits/L 84-246 N code = LDH) CBC W/AUTO [id number] 17:01:00 Test Item Value Reference Range Interpretation [...] NO code = MDIFF) UR CREATININE CLEARANCE [id number] 20:37:00 Test Item Value Reference Range Interpretation [...] GM/24HR 1.0-1.6 N 24HR (test code = DKWF34K) UR VOLUME (test 3300 mL code = VOL) UR COLLECTION 1440 MIN TIME (test code = COLTM) UR PROTEIN [id number] 20:37:00 Test Item Value Reference Range Interpretation [...] 24HR 198 MG/24HR 0-150 (test code = MHQI70G) UR CREATININE CLEARANCE [id number] 20:11:00 Test Item Value Reference Range Interpretation Comments CREATININE CLEARANCE RESULT (test MLS/MIN 70-130 code = CREATCLR) CREATININE (test code = CREAT) 0.5 mg/dL 0.6-1.3 L UR CREATININE RANDOM (test code = mg/dL CREATU) UR CREATININE 24HR (test code = GM/24HR 1.0-1.6 OBUX40W) UR VOLUME (test code = VOL) 3300 mL UR COLLECTION TIME (test code = 1440 MIN COLTM) UR PROTEIN [id number] 20:11:00 Test Item Value Reference Range Interpretation Comments UR PROTEIN RANDOM (test code = PROTU) mg/dL UR CREATININE CLEARANCE [id number] 20:03:00 Test Item Value Reference Range Interpretation Comments CREATININE CLEARANCE RESULT (test MLS/MIN 70-130 code = CREATCLR) CREATININE (test code = CREAT) mg/dL 0.6-1.3 UR CREATININE RANDOM (test code = mg/dL CREATU) UR CREATININE 24HR (test code = GM/24HR 1.0-1.6 [id number]) UR VOLUME (test code = VOL) 3300 mL UR COLLECTION TIME (test code = 1440 MIN COLTM) UR PROTEIN [id number] 20:03:00 Test Item Value Reference Range Interpretation Comments UR PROTEIN RANDOM (test code = PROTU) mg/dL - US BIOPHYS [id number] 19:46:00 Name: DESIRAE GRACIA [facility] : 1990 Age/S: 29 / F [address] [place] [address] Unit #: [id number] [place]: [id number] Phys: Claire Chavez MD Acct: [id number] Dis Date: Status: REG ER PHONE #: [phone] Exam Date: 03/09/20201939 FAX #: [phone] Reason: Decreased movements EXAMS: CPTCODE: [id number] US BIOPHYS PROF [id number] TRANSABDOMINAL OBSTETRICAL PELVIC ULTRASOUND, BIOPHYSICAL PROFILE INDICATION: [...] abruption. PAGE 1 Signed Report (CONTINUED) Name: ALVARO GRACIAGregoria Britton [facility] : 1990 Age/S: 29 / F [address] [place] [address] Unit #: [id number] Loc: [place] [address] Phys: Claire Chavez MD Acct: [id number] Dis Date: Status: REG ER PHONE #: [phone] Exam Date: 03/09/20201939 FAX #: [phone] Reason: Decreased movements EXAMS: CPT CODE: [id number] US BIOPHYS PROF [id number] <Continued> at 1946 Reported and signed by: Nella Elizabeth CC: Pankaj Singh MD; Latrice Gage MD Technologist: Jaun Holder RDMS() Trnscb Date/Time: 03/09/2020 (1945) [email or web address] Orig Print D/T: S: 03/09/2020 (1948) Probe: PAGE 2 Signed Report COMPREHENSIVE METABOLIC [id number] 17:39:00 Test Item Value Reference Range Interpretation [...] N TOTAL (test code = ALKP) URINALYSIS [id number] 17:35:00 Test Item Value Reference Range Interpretation [...] 0-5 /HPF NONE SEEN SQU) CBC W/AUTO [id number] 17:26:00 Test Item Value Reference Range Interpretation [...] REQUIRED (test NO code = MDIFF) URINALYSIS [id number] 16:57:00 Test Item Value Reference Range Interpretation [...] TRACE /HPF NONE = AMORU) COMPREHENSIVE METABOLIC [id number] 16:44:00 Test Item Value Reference Range Interpretation [...] N TOTAL (test code = ALKP) URIC [id number] 16:44:00 Test Item Value Reference Range Interpretation Comments URIC ACID (test code = URIC) 4.1 mg/dL 2.6-7.2 N LACTIC DEHYDROGENASE(LDH)2020-02-23 16:44:00 Test Item Value Reference Range Interpretation Comments LACTIC DEHYDROGENASE(LDH) (test 146 IUnits/L 84-246 N code = LDH) COMPREHENSIVE METABOLIC [id number] 16:38:00 Test Item Value Reference Range Interpretation [...] (test IUnit/L 20-125 code = ALKP) URIC [id number] 16:38:00 Test Item Value Reference Range Interpretation Comments URIC ACID (test code = URIC) mg/dL 2.6-7.2 LACTIC DEHYDROGENASE(LDH)2020-02-23 16:38:00 Test Item Value Reference Range Interpretation Comments LACTIC DEHYDROGENASE(LDH) (test IUnits/L 84-246 code = LDH) CBC W/AUTO [id number] 16:28:00 Test Item Value Reference Range Interpretation [...]
--- NOTE | 2021-10-25 17:25 | RAD REPORT ---
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 No obstruction, free air or pneumatosis. No suspicious calcifications. The ingested foreign body localizes to the lower abdomen, right of midline. This loc ation is most likely distal small bowel. No significant bony findings IMPRESSION: Ingested foreign body in the right lower quadrant probably distal small bowel. No free air, pneumatosis or other findings for bowel perforation.
--- NOTE | 2021-10-25 17:30 | ER ---
Nurse's Notes [facility] Name: Desirae Gracia Age: 31 yrs Sex: Female : 1990 Arrival Date: 10/25/2021 Time: 14:02 Bed 12 Private MD: Kristen Duval Diagnosis: Foreign body in LLQ-small bowel;Foreign body in RLQ-small bowel Presentation: 10/25 14:13 Chief complaint: Patient states: "I swallowed a drill bit 3 days ago and I came here ab2 for X-rays. I have not pooped it out, but now my stomach doesn't feel right. Im nauseous and feels weird. I just wanted to get checked out." Pt denies vomiting. Pt c/o diarrhea/ Pt c/o abdominal pain. Coronavirus screen: Vaccine status: Patient reports being unvaccinated. Client denies travel out of the [place] in the last 14 days. At this time, the client does not indicate any symptoms associated with coronavirus-19. Ebola Screen: Patient negative for fever greater than or equal to 101.5 degrees Fahrenheit, and additional compatible Ebola Virus Disease symptoms Patient denies exposure to infectious person. Patient denies travel to an Ebola-affected area in the 21 days before illness onset. No symptoms or risks identified at this time. Initial Sepsis Screen: Does the patient meet any 2 criteria? No. Patient's initial sepsis screen is negative. Does the patient have a suspected source of infection? No. Patient's initial sepsis screen is negative. Risk Assessment: Do you want to hurt yourself or someone else? Patient reports no desire to harm self or others. Onset of symptoms is unknown. 14:13 Method Of Arrival: Ambulatory ab2 14:13 Acuity: CARMEN 3 ab2 Triage Assessment: 14:15 General: Appears in no apparent distress. comfortable, Behavior is calm, cooperative, ab2 appropriate for age. Pain: Complains of pain in abdomen Pain currently is 5 out of 10 on a pain scale. GI: Reports lower abdominal pain, upper abdominal pain, nausea, vomiting. Historical: - Allergies: 14:15 Benadryl; ab2 14:15 Darvocet-N 100; ab2 - PMHx: 14:15 Endometriosis of vagina; Pre-eclampsia; ab2 - Immunization history:: Adult Immunizations up to date. - Social history:: Smoking status: Patient denies any tobacco usage or history of. Screenin:39 Abuse screen: Denies threats or abuse. Nutritional screening: No deficits noted. jb4 Tuberculosis screening: No symptoms or risk factors identified. 15:39 Fall Risk None identified. jb4 Assessment: 15:39 General: Appears in no apparent distress. uncomfortable, Behavior is calm, cooperative, jb4 appropriate for age. Pain: Complains of pain in right lower quadrant Pain does not radiate. Pain currently is 5 out of 10 on a pain scale. Quality of pain is described as. Neuro: Level of Consciousness is awake, alert, obeys commands, Oriented to person, place, time, situation. Cardiovascular: Patient's skin is warm and dry. Respiratory: Airway is patent Respiratory effort is even, unlabored, Respiratory pattern is regular, symmetrical. GI: Abdomen is non-distended, obese, Bowel sounds present X 4 quads. Abd is soft and non tender in right upper quadrant, left upper quadrant and left lower quadrant Abd is soft in right lower quadrant Abd is non tender in right lower quadrant. Derm: Skin is intact, Skin is pink, warm \\T\\ dry. Musculoskeletal: Circulation, motion, and sensation intact. Range of motion: intact in all extremities. 16:28 Reassessment: Patient appears in no apparent distress at this time. Patient and/or jb4 family updated on plan of care and expected duration. Pain level reassessed. Patient is alert, oriented x 3, equal unlabored respirations, skin warm/dry/pink. 17:53 Reassessment: Patient appears in no apparent distress at this time. Patient and/or jb4 family updated on plan of care and expected duration. Pain level reassessed. Patient is alert, oriented x 3, equal unlabored respirations, skin warm/dry/pink. Vital Signs: 14:13 BP 130 / 77; Pulse 81; Resp 17; Temp 98.1(TE); Pulse Ox 99% on R/A; Weight 81.65 kg; ab2 Height 5 ft. 7 in. (170.18 cm); Pain 5/10; 16:28 BP 129 / 78; Pulse 79; Resp 16; Pulse Ox 100% on R/A; jb4 17:53 BP 124 / 78; Pulse 69; Resp 17; Pulse Ox 100% on R/A; jb4 14:13 Body Mass Index 28.19 (81.65 kg, 170.18 cm) ab2 ED Course: 14:02 Patient arrived in ED. am2 14:02 Kristen Duval MD is Private Physician. am2 14:15 Triage completed. ab2 14:16 Arm band placed on right wrist. ab2 14:25 Chelsey Rojas FNP-C [facility]. kb 14:25 Gustavo Barton MD is Attending Physician. kb 15:07 Ignacio Loomis, RN is Primary Nurse. jb4 15:39 Patient has correct armband on for positive identification. Placed in gown. Bed in low jb4 position. Call light in reach. Side rails up X 1. Pulse ox on. NIBP on. 15:57 Abdomen 1 View (KUB) XRAY In Process Unspecified. EDMS 17:12 CT Stone Protocol In Process Unspecified. EDMS 17:55 No provider procedures requiring assistance completed. Patient did not have IV access jb4 during this emergency room visit. Administered Medications: No medications were administered Outcome: 17:29 Discharge ordered by . kb 17:55 Discharged to home ambulatory. jb4 17:55 Condition: stable 17:55 Discharge instructions given to patient, Instructed on discharge instructions, follow up and referral plans. medication usage, Demonstrated understanding of instructions, follow-up care, medications, Prescriptions given X 1. 17:55 Patient left the ED. jb4 Signatures: Dispatcher [employer] EDNY Chelsey Rojas, HEMANT NURSE PRACTITIONER HOME ASSESSMENTS-Ignacio Sood, RN RN jb4 Chloe Stanley am2 Braeden Kennedy ab2
--- NOTE | 2021-10-25 17:30 | EDPHYS ---
Physician Documentation [facility] Name: Desirae Gracia Age: 31 yrs Sex: Female : 1990 Arrival Date: 10/25/2021 Time: 14:02 Bed 12 Private MD: Kristen Duval ED Physician Gustavo Barton HPI: 10/25 15:36 This 31 yrs old Female presents to ER via Ambulatory with complaints of Swallowed kb Foreign Body - tooth drill bit, Abdominal Pain. 15:37 The patient or guardian reports the patient has a suspected foreign body, that has been kb ingested. The reported likely foreign body is drill bit from dentist. Onset: The symptoms/episode began/occurred 3 day(s) ago. Current symptoms: nausea. Treatment Prior to Arrival: none. The patient has not experienced similar symptoms in the past. The patient has not recently seen a physician. Pt states she swallowed a drill bit at the dentist office 3 days ago. Reports diffuse abd discomfort, intermittent nausea and not feeling well. States she had an endometrial ablasion 1.5 weeks ago so the pain could be from that, but she wanted to get checked out just in case. Historical: - Allergies: 14:15 Benadryl; ab2 14:15 Darvocet-N 100; ab2 - PMHx: 14:15 Endometriosis of vagina; Pre-eclampsia; ab2 - Immunization history:: Adult Immunizations up to date. - Social history:: Smoking status: Patient denies any tobacco usage or history of. ROS: 15:34 Constitutional: Negative for fever, chills, and weight loss. kb 15:34 Abdomen/GI: Positive for abdominal pain, nausea, Negative for vomiting, diarrhea. 15:34 All other systems are negative. Exam: 15:35 Constitutional: This is a well developed, well nourished patient who is awake, alert, kb and in no acute distress. Head/Face: Normocephalic, atraumatic. ENT: Moist Mucous membranes Cardiovascular: Regular rate and rhythm with a normal S1 and S2. No gallops, murmurs, or rubs. No pulse deficits. Respiratory: Respirations even and unlabored. No increased work of breathing. Talking in full sentences Skin: Warm, dry with normal turgor. Normal color. MS/ Extremity: Pulses equal, no cyanosis. Neurovascular intact. Full, normal range of motion. Neuro: Awake and alert, GCS 15, oriented to person, place, time, and situation. Moves all extremities. Normal gait. Psych: Awake, alert, with orientation to person, place and time. Behavior, mood, and affect are within normal limits. 15:35 Abdomen/GI: Inspection: abdomen appears normal, Bowel sounds: normal, in all quadrants, Palpation: soft, in all quadrants, mild abdominal tenderness, in all quadrants. Vital Signs: 14:13 BP 130 / 77; Pulse 81; Resp 17; Temp 98.1(TE); Pulse Ox 99% on R/A; Weight 81.65 kg; ab2 Height 5 ft. 7 in. (170.18 cm); Pain 5/10; 16:28 BP 129 / 78; Pulse 79; Resp 16; Pulse Ox 100% on R/A; jb4 17:53 BP 124 / 78; Pulse 69; Resp 17; Pulse Ox 100% on R/A; jb4 14:13 Body Mass Index 28.19 (81.65 kg, 170.18 cm) ab2 MDM: 15:00 Patient medically screened. kb 15:35 Data reviewed: vital signs, nurses notes. Data interpreted: Pulse oximetry: on room air kb is 99 %. Interpretation: normal. 15:36 Counseling: I had a detailed discussion with the patient and/or guardian regarding: the kb historical points, exam findings, and any diagnostic results supporting the discharge/admit diagnosis, radiology results, the need for outpatient follow up, a family practitioner, to return to the emergency department if symptoms worsen or persist or if there are any questions or concerns that arise at home. 15:51 ED course: Discussed best way to rule out perforation with Dr Pantoja. He suggests CT kb stone protocol to rule out perforation. CT ordered. . 10/25 14:25 Order name: Abdomen 1 View (KUB) XRAY; Complete Time: 17:28 kb 10/25 15:48 Order name: CT Stone Protocol; Complete Time: 17:34 kb Administered Medications: No medications were administered Disposition: 10/26 09:00 Co-signature as Attending Physician, Gustavo Barton MD. rn Disposition Summary: 10/25/21 17:29 Discharge Ordered Location: Home kb Condition: Stable kb Diagnosis - Foreign body in LLQ-small bowel kb - Foreign body in RLQ-small bowel kb Followup: kb - With: Emergency Department - When: As needed - Reason: Worsening of condition Followup: kb - With: Private Physician - When: 2 - 3 days - Reason: Recheck today's complaints, Continuance of care, Re-evaluation by your physician Discharge Instructions: - Discharge Summary Sheet kb - Swallowed Foreign Body, Adult, [id number] kb Forms: - Medication Reconciliation Form kb - Thank You Letter kb - Antibiotic Education kb - Prescription Opioid Use kb Prescriptions: - Zofran 4 mg Oral Tablet - take 1 tablet by ORAL route every 6 hours As needed; 20 tablet; Refills: 0, kb Product Selection Permitted Signatures: Dispatcher [employer] EDMS Chelsey Rojas, TANKAGE GRINDER-C TANKAGE GRINDER-Ckb Gustavo Barton MD MD rn Bleininger, Alexis ab2 Corrections: (The following items were deleted from the chart) 10/25 15:54 15:37 Pt states she swallowed a drill bit at the dentist office 3 days ago. . kb kb
--- NOTE | 2021-10-25 17:33 | RAD REPORT ---
EXAM DESCRIPTION: CT - Stone Protocol - 10/25/2021 5:11 pm CLINICAL HISTORY: ABD PAIN Stabbing abdominal pain, patient ingested a drill bit at the dentist office COMPARISON: KUB same date, CT abdomen and pelvis October 22 TECHNIQUE: CT imaging of the abdomen was performed without oral or IV contrast. All CT scans are performed using dose optimization technique as appropriate and may include automated exposure control or mA/KV adjustment according to patient size. FINDINGS: No suspicious findings in the lung bases. The liver, spleen, and pancreas show no suspicious findings for a non IV contrast study. Gallbladder and biliary tree are also without suspicious finding. No hydronephrosis or suspicious mass in either kidney. Isodense masses and pyelonephritis are not exc luded. No adrenal abnormalities. Punctate nonobstructing calculi present in calices of each kidney. U terus and ovaries show no significant findings. No dilated bowel loops or bowel wall thickening. The ingested drill bit is in the right lower quadran t at the ileocecal valve. There is significant spray artifact immediately adjacent to the drill bit w ere. The drill bit is still believed to be within the lumen of the bowel. There is no extraluminal fr ee air or free fluid. There is no edema or stranding in the fatty tissues around the cecum or ileocec al valve. The appendix is unremarkable. No suspicious bony findings. Overall exam sensitivity is decreased when no contrast is administered. IMPRESSION: The ingested foreign body has migrated from the stomach and now localizes to the ileocec al valve. The spray artifact from the drill bit limits detail in the immediate surrounding soft tissues. Howeve r, the drill bit is still believed to be within the lumen of bowel. There is no extraluminal air or f luid. There is no edema or stranding of the fatty tissues adjacent to the terminal ileum and cecum. N o perforation findings are seen.
[2021-10-25 19:07] VITALS: TEMP 98.1
[2021-10-25 19:08] VITALS: O2SAT 100
[2021-10-25 19:10] VITALS: BP 124/78
== END 2021-10-25 17:55 | disposition home or self-care (01) ==
LOC: ER 13:56
DX: T18.3XXA Foreign body in small intestine, initial encounter (principal); Z88.5 Allergy status to narcotic agent; Z88.8 Allergy status to other drugs, medicaments and biological substances
CPT/HCPCS: 74018; 74176; 76377; 99283

== ENCOUNTER 2021-10-29 11:13 | Emergency (ER) | payer OTHER ==
--- OUTSIDE RECORDS SUMMARY | 2021-10-29 11:17 | XMS REPORT | Continuity of Care Document ---
:1990 Author Organization [facility] t Address [address] [place] [address] Care Team Providers Name Role Phone Valerie Duval Attending Clinician Unavailable Jamaal Singh Attending Clinician Unavailable Eligio Chavez Attending Clinician Unavailable Vicente Siddiqui Attending Clinician Unavailable BRODERICK Attending Clinician Unavailable Amilcar_Jamaal Attending Clinician Unavailable Jamaal Singh Admitting Clinician Unavailable Valerie Gage Admitting Clinician Unavailable BRODERICK Admitting Clinician Unavailable Amilcar_Jamaal Admitting Clinician Unavailable Payers Payer Name Policy Type Policy Number Effective Date Expiration Date [facility] [id number] 2018 CHOICE (MEDICAID 00:00:00 REPLACEMENT - HMO) [facility] [id number] STRATEGIES Problems This patient has no known problems. Allergies, Adverse Reactions, Alerts Allergy Allergy Status Severity Reaction(s) Onset Inactive Treating Comm ents Source Name Type Date Date Clinician diphenhy DA Active MO hallucinatio HC A dramine ns 1-27 Clear 00:00: Castillo 00 [facility] propoxyp DA Active MO [facility] 9- Clear 00:00: Castillo 00 [facility] diphenhy DA Active U 2020-0 [facility] dramine 9 Clear 00:00: Castillo [facility] propoxyp DA Active MO H/A, 2020-0 [facility] ITCHING, 04-25 Clear NIGHTMARES 00:00: Castillo [facility] diphenhy DA Active U hallucinatio 2020-0 HC A dramine ns 04-25 Clear 00:00: [employer] [facility] propoxyp DA Active MO 2020-0 [facility] 8 Clear 00:00: [employer] [facility] diphenhy DA Active U 2020-0 [facility] dramine 03-26 Clear 00:00: [employer] [facility] propoxyp DA Active MO H/A, 2020-0 [facility] he[facility] ITCHING, 03-26 Clear NIGHTMARES 00:00: [employer] [facility] diphenhy DA Active U hallucinatio 2020-0 HC A dramine ns 03-26 Clear 00:00: [employer] [facility] propoxyp DA Active MO 2020-0 [facility] 8 Clear 00:00: [employer] [facility] diphenhy DA Active U 2020-0 [facility] dramine 8 Clear 00:00: [employer] [facility] propoxyp DA Active MO H/A, 2020-0 [facility] hene ITCHING, 8 Clear NIGHTMARES 00:00: [employer] [facility] diphenhy DA Active U hallucinatio 2020-0 HC A dramine ns 8 Clear 00:00: [employer] [facility] propoxyp DA Active MO 2020-0 [facility] 8 Clear 00:00: [employer] [facility] diphenhy DA Active U 2020-0 [facility] dramine 8 Clear 00:00: [employer] [facility] propoxyp DA Active MO H/A, 2020-0 [facility] hene ITCHING, 8 Clear NIGHTMARES 00:00: [employer] [facility] diphenhy DA Active U hallucinatio 2020-0 HC A dramine ns 8-20 Clear 00:00: [employer] [facility] propoxyp DA Active MO 2020-0 [facility] 8-14 Clear 00:00: [employer] [facility] acetamin DA Active MO 2019-0 [facility] ophen 8-14 Clear 00:00: Castillo 00 [facility] diphenhy DA Active U 2020-0 [facility] dramine 8-14 Clear 00:00: Castillo 00 [facility] propoxyp DA Active MO H/A, [facility] hene ITCHING, 8-14 Clear NIGHTMARES 00:00: Castillo 00 [facility] acetamin DA Active MO H/A, HCA ophen ITCHING, 8-14 Clear NIGHTMARES 00:00: Castillo 00 [facility] diphenhy DA Active U hallucinatio 2019- HC A dramine ns 8-14 Clear 00:00: [place] [facility] [place] [address] [facility] dramine 2-10 Clear 00:00: Castillo 00 [facility] diphenhy DA Active U hallucinatio 2017-0 HC A dramine ns 2-10 Clear 00:00: Castillo 00 [facility] propoxyp DA Active MO 2015-07 [facility] hene 2-16 Clear 00:00: Castillo 00 [facility] acetamin DA Active MO 2015-07 [facility] ophen 2-16 Clear 00:00: Castillo 00 [facility] propoxyp DA Active MO H/A, 2015-07 [facility] hene ITCHING, 2-16 Clear NIGHTMARES 00:00: Castillo 00 [facility] acetamin DA Active MO H/A, 2015-07 [facility] ophen ITCHING, 2-16 Clear NIGHTMARES 00:00: Castillo 00 [facility] codeine Adverse Active Info Not [facility] Reaction Available [facility] Darvocet Adverse Active Info Not [facility] A500 Reaction Available [facility] Benadryl Adverse Active Info Not [facility] Reaction Available [facility] ent [facility] Medications Ordered Filled Start Stop Current Ordering Indication Dosage Frequency Signature Comments Components Source Medication Medication Date Date Medication? Clinician (SIG) Name Name Clotrimazol Clotrimazol 2017-07 Yes Na Duval [address] [facility] e 2-20 [facility]atio [facility] 00 affected [facility] ent Clinics Procedures Procedure Date / Time Performed Performing Clinician [facility] vicente [id number] 2020-03-26 00:00:00 AKAED [facility] [id number] 2020-03-26 00:00:00 AKAED [facility] En[facility]ters Start End Encounter Admission Attending Care Care Encounter Source Date/Time Date/Time Type Type Clinicians Facility Department ID 2021-10-22 Outpatient Duval, Na STLMLC STLMLC [id number] [facility] 14:43:00 [id number] [facility] 2021-10-14 Inpatient EL Samantha HCACL DAYS [id number] [facility] 14:00:00 Edesiri [id number] [facility] 2021-08-22 Inpatient EL Samantha HCACL DAYS [id number] [facility] 14:30:00 Edesiri [id number] [facility] 2021-08-21 Outpatient Duval, Na STLMLC STLMLC [id number] [facility] [facility] 13:52:23 [id number] [facility] 2021-08-21 Outpatient Duval, Na STLMLC STLMLC [id number] [facility] 12:08:33 [id number] [facility] 2021-08-21 Outpatient Duval, Na STLMLC STLMLC [id number] [facility] 12:08:15 [id number] [facility] 2021-08-21 Outpatient Duval, Na STLMLC STLMLC [id number] [facility] 12:07:41 [id number] [facility] 2021-08-21 Inpatient EL Samantha HCACL DAYS [id number] [facility] 07:30:00 Edesiri [id number] [facility] 2021-08-19 Inpatient EL Samantha HCACL DAYS [id number] [facility] 09:00:00 Edesiri [id number] [facility] 2021-08-15 Inpatient EL Samantha HCACL DAYS [id number] [facility] 07:30:00 Edesiri [id number] [facility] 2021-08-13 Inpatient EL Akajagbor, HCACL DAYS [id number] [facility] 14:30:00 Edesiri [id number] [facility] 2021-06-12 Outpatient Akshaye, HCACL HCACL [id number] [facility] 12:30:58 Edesiri 18 [facility] 2020-04-27 Inpatient Akrodneygbor, HCACL DAYS [id number] [facility] 12:30:00 Edesiri [facility] 2020-04-25 Inpatient Akasumagbor, HCACL DAYS [id number] [facility] 11:30:00 Edesiri [facility] 2020-03-21 Inpatient Akrodneygbor, HCACL JEEVAN [id number] [facility] 13:25:00 Edesiri [id number] [facility] 2020-03-15 Inpatient Venkatesh HCACL JEEVAN [id number] [facility] 15:15:00 Gabi [facility] 2020-03-09 Inpatient Venkatesh HCACL JEEVAN [id number] [facility] 18:24:00 Gabi [id number] [facility] 2020-03-08 Inpatient Siddiqui, HCACL JEEVAN [id number] [facility] 16:14:00 Rosemarie [id number] [facility] 2021-10-23 2021-10-23 ambulatory STLMLC STLMLC [id number] [facility] 2021-10-22 2021-10-22 ambulatory STLMLC STLMLC [id number] [facility] 2021-10-16 2021-10-16 Outpatient EL Samantha, HCACL HCACL [id number] [facility] 11:37:00 11:37:00 Edesiri 31 [facility] 2021-10-16 2021-10-16 Outpatient EL Samantha, HCACL DAYS [id number] [facility] 11:37:00 11:37:00 Edesiri [id number] [facility] 2021-08-26 2021-08-26 Outpatient ALLA Andino [id number] [facility] 08:30:00 08:30:00 Edesiri [id number] [facility] 2021-06-19 2021-06-19 Outpatient FRANCHESKA WEBER 0 [place] 12:15:00 12:15:00 HN [id number] da [facility] 2021-06-12 2021-06-12 Outpatient SORIN [facility]ELARDO [facility] [id number] [facility] 11:13:00 11:13:00 Edesiri [id number] [facility] 2021-01-11 2021-01-11 Outpatient STLMLC STLC [id number] [facility] 2020-06-20 2020-06-20 Outpatient STLMLC STLMLC [id number] [facility] 2020-06-13 2020-06-13 Outpatient Raju_P MMG MMG [id number] [place] 02:34:00 02:34:00 [id number] 2020-04-24 2020-04-24 Outpatient STLMLC STLMLC [id number] [facility] 2020-04-24 2020-04-24 Outpatient STLMLC STLMLC [id number] [facility] 2020-03-26 2020-03-26 Outpatient ALLA Andino KOTA [id number] [facility] 11:00:00 11:00:00 Edesiri [id number] [facility] 2020-02-23 2020-02-23 Outpatient SORIN AndinoABELARDO [id number] [facility] 15:16:00 15:16:00 Edesiri [facility] 2018-11-12 2018-11-12 [facility] [id number] 13:48:00 13:48:00 [employer] s - Drive [facility] 2018-10-14 2018-10-14 [facility] [id number] 09:06:00 09:06:00 [facility] Care [facility] 2018-08-16 2018-08-16 [facility] [id number] 14:57:00 14:57:00 [facility] - Care [facility] 2018-07-14 2018-07-14 [facility] [id number] 10:23:00 10:23:00 t [place] [employer] s - Drive [facility] 2018-07-14 2018-07-14 [facility] [id number] 08:30:00 08:30:00 [place] [employer] [facility] [employer] s - [facility] 2018-05-10 2018-05-10 [facility] [id number] 15:47:00 15:47:00 [facility] - Care [facility] 2018-05-05 2018-05-05 [facility] [id number] 13:45:00 13:45:00 [facility] - Care [facility] 2018-03-15 2018-03-15 [facility] [id number] 14:30:00 14:30:00 t [facility] es - Care Clinic [facility] 2018-03-11 2018-03-11 [facility] [id number] 11:00:00 11:00:00 t [facility] - [facility] Care [facility] 2018-02-12 2018-02-12 [facility] [id number] 13:42:00 13:42:00 t [facility] - [facility] 2018-01-21 2018-01-21 [facility] [id number] 14:30:00 14:30:00 t [facility] - [facility] 2018-01-14 2018-01-14 [facility] [id number] 14:30:00 14:30:00 t [facility] - [facility] Care [facility] 2017-12-31 2017-12-31 [facility] [id number] 14:15:00 14:15:00 t [facility] 2017-12-17 2017-12-17 [facility] [id number] 14:15:00 14:15:00 t [facility] - [facility] 2017-11-26 2017-11-26 [facility] [id number] 15:00:00 15:00:00 t [facility]'s Luke s - Care Care [facility] 2017-11-26 2017-11-26 [facility] [id number] 10:00:00 10:00:00 [employer] [facility] Results Test Description Test Time Test Comments Results Result Comments Source Novel Coronavirus 2019 Inhouse 2021-10-15 08:51:00 Test Item Value Reference Range Interpretation Comme nts Novel Coronavirus 2018 Negative Negative Posit rafael results are indicative of the Inhouse (test code = presenc e wjKAOT-PjX-8 RNA, clinical COVNONPUI) correlation wit h patient [...] qualitative detection of nucleic acid s from zsyKVES-PtW-5 virus and diagn osis of SARS-CoV-2 virusinfection. It is an Emergency Use Authorization ( EUA) testauthorized by the U.S. FDA. HCG SERUM [id number] 15:12:00 Test Item Value Reference Range Interpretation Comments HCG SERUM QUAL (test code = SERUM NEGATIVE NEGATIVE HCGQL) CBC W/AUTO [id number] 15:07:00 Test Item Value Reference Range Interpretation [...] code NO = MDIFF) Novel Coronavirus 2018 [id number] 06:39:00 Test Item Value Reference Range Interpretation [...] det ection of nucleic acids f rom oxmCFJI-KiZ-4 v irus and diagnosis of SA RS-CoV-2 virusinfection. It is an Emergency Use Authorization ( EUA) testauthorized by the U.S. FDA. HCG SERUM [id number] 16:15:00 Test Item Value Reference Range Interpretation Comments HCG SERUM QUAL (test code = SERUM NEGATIVE NEGATIVE HCGQL) CBC W/AUTO [id number] 16:06:00 Test Item Value Reference Range Interpretation [...] REQUIRED (test code NO = MDIFF) - PELVIS [id number] 00:00:00 [facility] 1990 Sex: F Name: ALLISON CELESTE [facility] : 1990 Age/S: 31 / F [address] [place] [address] Blvd Unit #: [id number] Loc: [place] [address] Phys: Pankaj Singh MD Acct: [id number] Dis Date: Status: REG CLI PHONE #: [phone] Exam Date: 06/12/2021 1216 FAX #: [phone] Reason: AUB. EXAMS: CPT CODE: [id number] US PELVIS COMPLETE [id number] PROCEDURE INFORMATION: Exam: US Pelvis Complete, Transabdominal [...] Estela Ramsey RDMS(AB) Trnscb Date/Time: 06/12/2021 (1230) Reggie Orig Print D/T: S: 06/12/2021 (1230) Probe: PAGE 1 Signed Report- US TRANSVAGINAL NON [id number] 00:00:00 [facility] ILIFF[facility]: ALLISON CELESTE : 1990 Sex: F Name: ALLISON CELESTE [facility] : 1990 Age/S: 31 / F [address] [place] [address] Blvd Unit #: [id number] Loc: [place] [address] Phys: Pankaj Singh MD Acct: [id number] Dis Date: Status: REG CLI PHONE #: [phone] Exam Date: 06/12/2021 1216 FAX #: [phone] Reason: AUB. EXAMS: CPT CODE: [id number] [place] [id number] PROCEDURE INFORMATION: Exam: US Pelvis Complete, Transabdominal [...] Orig Print D/T: S: 06/12/2021 (1230) Probe: [id number] PAGE 1 Signed ReportSURGICAL PATH [id number] 08:32:00 RUN DATE: 05/02/20 [facility] *LIVE* PAGE 1 RUN TIME: 0832 Specimen Inquiry RUN USER: INTERFACE PATIENT: ALLISON CELESTE LOC: ABI U #: [id number] AGE/SX: 29/F ROOM: RE04/27/20REG DR: Pankaj Singh MD : [birth year] BED: DIS: STATUS: [facility] TLOC: SPEC #: [id number] RECD: 04/30/20 STATUS: JOE MALLORY #: [id number] MARCO A: 04/30/[address] [facility] DR: Pankaj Singh MD ENTERED: 05/02/20 SP TYPE: SURG SPEC OTHR DR: DOES_NOT KNOW Latrice Gage MDORDERED: [id number] CODES: [id number] - FALLOPIAN TUBE COPIES TO: DOES_NOT KNOW Pankaj Singh MD [address] [place] [address] [email or web address] Latrice Gage MD [address] [place] [address] [email or web address] PROCEDURES: L4 61616 (Incomplete) TISSUES: 1. FALLOPIAN TUBE, NOS - [...] CONTINUED ON NEXT PAGE RUN DATE: 05/02/20 [facility] *LIVE* PAGE 2 RUN TIME: 0832 Specimen Inquiry RUN USER: INTERFACE SPEC #: [id number] PATIENT: ALLISON CELESTE Reba #[id number] (Continued) POST-OP DIAGNOSIS Multiparity, desires sterilization, family planning PRE-OP DIAGNOSISMultiparity, desires sterilization, family planning Signed SIGNATURE ON FILE Elmer Rodriguez DO 05/02/20 0832 END OF REPORT Novel Coronavirus 2018 [id number] 09:10:00 Test Item Value Reference Range Interpretation [...] for the identification of SARS-CoV-2 RNA usingthe [employer]eline[employer] M2000 Sy stem under the FDA Emergen cy UseAuthorizatio n. The testing is perf ormed by personneltraine d in the procedures for the Sideline[employer] M2000 molecular diagnostic SARS-CoV-2 assa y in vitro. CBC W/AUTO [id number] 13:03:00 Test Item Value Reference Range Interpretation [...] REQUIRED (test code NO = MDIFF) PROTHROMBIN [id number] 12:59:00 Test Item Value Reference Range Interpretation [...] mecha nical valve in aortic position.2. [facility] hanical prosthetic valv es (high risk), 2.5 - 3.5 Presence of Lupus Anticoagu lant or Antiphospholi pid Antibodies, Pre vention of systemic e mbolism - Acute Myocard ial Infarction (t o prevent recurre nt infarct). THROMBOPLASTIN TIME [id number] 12:59:00 Test Item Value Reference Range Interpretation Comments THROMBOPLASTIN TIME PARTIAL (test Seconds 25.0-39.5 code = PTT) PROTHROMBIN [id number] 12:59:00 Test Item Value Reference Range Interpretation [...] mecha nical valve in aortic position.2. [facility] hanical prosthetic valv es (high risk), 2.5 - 3.5 Presence of Lupus Anticoagu lant or Antiphospholi pid Antibodies, Pre vention of systemic e mbolism - Acute Myocard ial Infarction (t o prevent recurre nt infarct). THROMBOPLASTIN TIME [id number] 12:59:00 Test Item Value Reference Range Interpretation Comments THROMBOPLASTIN TIME 31.7 Seconds 25.0-39.5 N Ther apeutic PARTIAL (test code = Range: 50.4 - 88.3 PTT) Seconds Effective 11/09/2018 HCG SERUM [id number] 12:53:00 Test Item Value Reference Range Interpretation Comments HCG SERUM QUAL (test code = SERUM NEGATIVE NEGATIVE HCGQL) RAPID PLASMA [id number] 11:50:00 Test Item Value Reference Range Interpretation Comments RAPID PLASMA REAGIN (test code = NONREACTIVE NONREACTIVE RPR) AG HEPATITIS B [id number] 11:50:00 Test Item Value Reference Range Interpretation Comments AG HEPATITIS B SURFACE NON REACTIVE INDEX NonReactive (test code = HBSAG) AB HIV 1 11:50:00 Test Item Value Reference Range Interpretation Comments AB HIV 1 2 (test code = NONREACTIVE INDEX NONREACTIVE [id number]) CBC W/AUTO [id number] 07:47:00 Test Item Value Reference Range Interpretation [...] code = MDIFF) COVID 19 Asymptomatic IH [id number] 20:08:00 Test Item Value Reference Range Interpretation [...] high or waivedcomplexit y tests. RAPID PLASMA [id number] 15:48:00 Test Item Value Reference Range Interpretation Comments RAPID PLASMA REAGIN (test code = RPR) NONREACTIVE AG HEPATITIS B [id number] 15:48:00 Test Item Value Reference Range Interpretation Comments AG HEPATITIS B SURFACE NON REACTIVE INDEX NonReactive (test code = HBSAG) AB HIV 1 15:48:00 Test Item Value Reference Range Interpretation Comments AB HIV 1 2 (test code = NONREACTIVE INDEX NONREACTIVE [id number]) CBC W/AUTO [id number] 14:31:00 Test Item Value Reference Range Interpretation [...] REQUIRED (test NO code = MDIFF) URINALYSIS [id number] 14:27:00 Test Item Value Reference Range Interpretation [...] = MUCU) TRACE /LPF NONE SEEN URINALYSIS [id number] 17:19:00 Test Item Value Reference Range Interpretation [...] MUCU) TRACE /LPF NONE SEEN UR PROTEIN/CREATININE [id number] 17:19:00 Test Item Value Reference Range Interpretation [...] 0.17 RATIO (test code = P/CRATIO) URINALYSIS [id number] 17:17:00 Test Item Value Reference Range Interpretation [...] MUCU) TRACE /LPF NONE SEEN UR PROTEIN/CREATININE [id number] 17:17:00 Test Item Value Reference Range Interpretation Comments UR PROTEIN RANDOM (test code = PROTU) mg/dL UR CREATININE RANDOM (test code = mg/dL CREATU) PROTEIN/CREATININE RATIO (test code = P/CRATIO) COMPREHENSIVE METABOLIC [id number] 17:16:00 Test Item Value Reference Range Interpretation [...] H TOTAL (test code = ALKP) URIC [id number] 17:16:00 Test Item Value Reference Range Interpretation Comments URIC ACID (test code = URIC) 6.3 mg/dL 2.6-7.2 LACTIC DEHYDROGENASE(LDH)2020-03-15 17:16:00 Test Item Value Reference Range Interpretation Comments LACTIC DEHYDROGENASE(LDH) (test 136 IUnits/L 84-246 N code = LDH) CBC W/AUTO [id number] 17:01:00 Test Item Value Reference Range Interpretation [...] NO code = MDIFF) UR CREATININE CLEARANCE [id number] 20:37:00 Test Item Value Reference Range Interpretation [...] GM/24HR 1.0-1.6 N 24HR (test code = OURW81E) UR VOLUME (test 3300 mL code = VOL) UR COLLECTION 1440 MIN TIME (test code = COLTM) UR PROTEIN [id number] 20:37:00 Test Item Value Reference Range Interpretation [...] 24HR 198 MG/24HR 0-150 (test code = NJXG03B) UR CREATININE CLEARANCE [id number] 20:11:00 Test Item Value Reference Range Interpretation Comments CREATININE CLEARANCE RESULT (test MLS/MIN 70-130 code = CREATCLR) CREATININE (test code = CREAT) 0.5 mg/dL 0.6-1.3 L UR CREATININE RANDOM (test code = mg/dL CREATU) UR CREATININE 24HR (test code = GM/24HR 1.0-1.6 DZLX64N) UR VOLUME (test code = VOL) 3300 mL UR COLLECTION TIME (test code = 1440 MIN COLTM) UR PROTEIN [id number] 20:11:00 Test Item Value Reference Range Interpretation Comments UR PROTEIN RANDOM (test code = PROTU) mg/dL UR CREATININE CLEARANCE [id number] 20:03:00 Test Item Value Reference Range Interpretation Comments CREATININE CLEARANCE RESULT (test MLS/MIN 70-130 code = CREATCLR) CREATININE (test code = CREAT) mg/dL 0.6-1.3 UR CREATININE RANDOM (test code = mg/dL CREATU) UR CREATININE 24HR (test code = GM/24HR 1.0-1.6 PMMR45M) UR VOLUME (test code = VOL) 3300 mL UR COLLECTION TIME (test code = 1440 MIN COLTM) UR PROTEIN [id number] 20:03:00 Test Item Value Reference Range Interpretation Comments UR PROTEIN RANDOM (test code = PROTU) mg/dL - US BIOPHYS [id number] 19:46:00 Name: ALLISON CELESTE [facility] : 1990 Age/S: 29 / F [address] [place] [address] Unit #: [id number] Loc: [place] Do77598 Phys: Claire Chavez MD Acct: [id number] Dis Date: Status: REG ER PHONE #: [phone] Exam Date: 03/09/20201939 FAX #: [phone] Reason: Decreased movements EXAMS: CPTCODE: [id number] US BIOPHYS PROF [id number] TRANSABDOMINAL OBSTETRICAL PELVIC ULTRASOUND, BIOPHYSICAL PROFILE INDICATION: [...] abruption. PAGE 1 Signed Report (CONTINUED) Name: BASILALLISON D [facility] [place] : 1990 Age/S: 29 / F [address] [place] [address] Unit #: [id number] Loc: [place] [address] Phys: Claire Chavez MD Acct: [id number] Dis Date: Status: REG ER PHONE #: [phone] Exam Date: 03/09/20201939 FAX #: [phone] Reason: Decreased movements EXAMS: CPT CODE: [id number] US BIOPHYS PROF [id number] <Continued> at 1946 Reported and signed by: Nella Elizabeth CC: Pankaj Singh MD; Latrice Gage MD Technologist: Jaun Holder [facility]() Trnscb Date/Time: 03/09/2020 (1945) [email or web address] Orig Print D/T: S: 03/09/2020 (1948) Probe: PAGE 2 Signed Report COMPREHENSIVE METABOLIC [id number] 17:39:00 Test Item Value Reference Range Interpretation [...] N TOTAL (test code = ALKP) URINALYSIS [id number] 17:35:00 Test Item Value Reference Range Interpretation [...] 0-5 /HPF NONE SEEN SQU) CBC W/AUTO [id number] 17:26:00 Test Item Value Reference Range Interpretation [...] REQUIRED (test NO code = MDIFF) URINALYSIS [id number] 16:57:00 Test Item Value Reference Range Interpretation [...] TRACE /HPF NONE = AMORU) COMPREHENSIVE METABOLIC [id number] 16:44:00 Test Item Value Reference Range Interpretation [...] N TOTAL (test code = ALKP) URIC [id number] 16:44:00 Test Item Value Reference Range Interpretation Comments URIC ACID (test code = URIC) 4.1 mg/dL 2.6-7.2 N LACTIC DEHYDROGENASE(LDH)2020-02-23 16:44:00 Test Item Value Reference Range Interpretation Comments LACTIC DEHYDROGENASE(LDH) (test 146 IUnits/L 84-246 N code = LDH) COMPREHENSIVE METABOLIC [id number] 16:38:00 Test Item Value Reference Range Interpretation [...] (test IUnit/L 20-125 code = ALKP) URIC [id number] 16:38:00 Test Item Value Reference Range Interpretation Comments URIC ACID (test code = URIC) mg/dL 2.6-7.2 LACTIC DEHYDROGENASE(LDH)2020-02-23 16:38:00 Test Item Value Reference Range Interpretation Comments LACTIC DEHYDROGENASE(LDH) (test IUnits/L 84-246 code = LDH) CBC W/AUTO [id number] 16:28:00 Test Item Value Reference Range Interpretation [...]
--- NOTE | 2021-10-29 13:34 | RAD REPORT ---
EXAM DESCRIPTION: RAD - Abdomen 1 View (KUB) - 10/29/2021 1:07 pm CLINICAL HISTORY: foreign body Pain COMPARISON: Abdomen 1 View (KUB) dated 10/25/2021; Abdomen 1 View (KUB) dated 10/22/2021 FINDINGS: Ingested linear foreign body is seen in the right lower quadrant. Exact location is diffic ult to ascertain but appears similar to the comparative study in position.
--- NOTE | 2021-10-29 13:52 | ER ---
Nurse's Notes [facility] Name: Desirae Gracia Age: 31 yrs Sex: Female : 1990 Arrival Date: 10/29/2021 Time: 11:16 Bed 12 Private MD: Diagnosis: Foreign body of alimentary tract, part unspecified Presentation: 10/29 11:36 Chief complaint: Patient states: she was seeing her dentist a couple of days ago, when ap3 the dentist dropped a drill bit into her throat and she swallowed it. Patient states she has yet to pass the drill bit, and is having abdominal pain. Patient states she wants to be evaluated to ensure that there hasn't been any damage from the drill bit. Coronavirus screen: At this time, the client does not indicate any symptoms associated with coronavirus-19. Ebola Screen: No symptoms or risks identified at this time. Initial Sepsis Screen: Does the patient meet any 2 criteria? No. Patient's initial sepsis screen is negative. Does the patient have a suspected source of infection? No. Patient's initial sepsis screen is negative. Risk Assessment: Do you want to hurt yourself or someone else? Patient reports no desire to harm self or others. Onset of symptoms was October 22, 2021. 11:36 Method Of Arrival: Ambulatory ap3 11:36 Acuity: CARMEN 3 ap3 Triage Assessment: 11:40 General: Appears in no apparent distress. Behavior is calm, cooperative, appropriate ap3 for age. Pain: Complains of pain in abdomen Pain currently is 4 out of 10 on a pain scale. Neuro: Level of Consciousness is awake, alert, obeys commands, Oriented to person, place, time, situation, Appropriate for age Gait is steady, Speech is normal. Cardiovascular: Patient's skin is warm and dry. Respiratory: Airway is patent Respiratory effort is even, unlabored. GI: Reports lower abdominal pain, upper abdominal pain, constipation, swallow drill bit. 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 - Social history:: Smoking status: Patient denies any tobacco usage or history of. Screenin:41 Abuse screen: Denies threats or abuse. Nutritional screening: No deficits noted. ap3 Tuberculosis screening: No symptoms or risk factors identified. Fall Risk None identified. Assessment: 12:45 Reassessment: No changes from previously documented assessment. Patient and/or family ll1 updated on plan of care and expected duration. Pain level reassessed. Patient is alert, oriented x 3, equal unlabored respirations, skin warm/dry/pink. 13:57 Reassessment: No changes from previously documented assessment. Patient and/or family ll1 updated on plan of care and expected duration. Pain level reassessed. Patient is alert, oriented x 3, equal unlabored respirations, skin warm/dry/pink. Vital Signs: 11:36 BP 142 / 71; Pulse 90; Resp 17; Temp 98.7; Pulse Ox 100% ; Weight 81.65 kg; Height 5 ap3 ft. 7 in. (170.18 cm); Pain 4/10; 13:56 BP 135 / 76; Pulse 69; Resp 16; ll1 11:36 Body Mass Index 28.19 (81.65 kg, 170.18 cm) ap3 ED Course: 11:16 Patient arrived in ED. ds1 11:39 Triage completed. ap3 11:41 Arm band placed on right wrist. ap3 12:44 Shweta Doss, RN is Primary Nurse. ll1 12:44 Patient placed in an exam room, on a stretcher. ll1 12:45 Rajeev Correa PA is PHCP. jr8 12:45 Brannon Powell MD is Attending Physician. jr8 13:08 XRAY KUB In Process Unspecified. EDMS 13:57 Patient has correct armband on for positive identification. Bed in low position. Call ll1 light in reach. Cardiac monitoring not applicable on this patient. 13:57 No provider procedures requiring assistance completed. Patient did not have IV access ll1 during this emergency room visit. Administered Medications: No medications were administered Outcome: 13:51 Discharge ordered by . jr8 13:58 Discharged to home ambulatory. ll1 13:58 Condition: stable 13:58 Discharge instructions given to patient, Instructed on discharge instructions, follow up and referral plans. Demonstrated understanding of instructions, follow-up care. 13:58 Patient left the ED. ll1 Signatures: Dispatcher [employer] EDSweta Wahl ds1 Rajeev Correa PA PA jr8 Chloe Joyner RN RN ap3 Shweta Doss RN RN ll1
--- NOTE | 2021-10-29 13:52 | EDPHYS ---
Physician Documentation [facility] Name: Desirae Gracia Age: 31 yrs Sex: Female : 1990 Arrival Date: 10/29/2021 Time: 11:16 Bed 12 Private MD: ED Physician Brannon Powell HPI: 10/29 12:56 This 31 yrs old Female presents to ER via Ambulatory with complaints of Abdominal Pain. jr8 12:56 Onset: The symptoms/episode began/occurred 2 week(s) ago. Associated signs and jr8 symptoms: The patient has no apparent associated signs or symptoms. 31-year-old female presents to the ER complaining of left lower quadrant abdominal pain. She reports that she swallowed a drill bit 1 week ago, and that she still has not passed it. She also had an endometrial ablation 2 weeks ago, and is unsure if her pain is due to this. She states that she is able to hold down food and is still having regular bowel movements.. 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 - Social history:: Smoking status: Patient denies any tobacco usage or history of. ROS: 12:56 Constitutional: Negative for fever, chills, and weight loss, Cardiovascular: Negative jr8 for chest pain, palpitations, and edema, Respiratory: Negative for shortness of breath, cough, wheezing, and pleuritic chest pain, Skin: Negative for injury, rash, and discoloration. 12:56 Abdomen/GI: Positive for abdominal pain. 12:56 All other systems are negative. Exam: 12:56 Constitutional: This is a well developed, well nourished patient who is awake, alert, jr8 and in no acute distress. Cardiovascular: Regular rate and rhythm with a normal S1 and S2. No gallops, murmurs, or rubs. Normal PMI, no JVD. No pulse deficits. Respiratory: Lungs have equal breath sounds bilaterally, clear to auscultation and percussion. No rales, rhonchi or wheezes noted. No increased work of breathing, no retractions or nasal flaring. 12:56 Skin: Warm, dry with normal turgor. Normal color with no rashes, no lesions, and no evidence of cellulitis. 12:56 Abdomen/GI: Inspection: abdomen appears normal, Bowel sounds: normal, Palpation: abdomen is soft and non-tender, in all quadrants. Vital Signs: 11:36 BP 142 / 71; Pulse 90; Resp 17; Temp 98.7; Pulse Ox 100% ; Weight 81.65 kg; Height 5 ap3 ft. 7 in. (170.18 cm); Pain 4/10; 13:56 BP 135 / 76; Pulse 69; Resp 16; ll1 11:36 Body Mass Index 28.19 (81.65 kg, 170.18 cm) ap3 MDM: 12:46 Patient medically screened. jr8 13:49 Data reviewed: vital signs, nurses notes, radiologic studies, plain films. Data jr8 interpreted: Pulse oximetry: on room air is 100 %. Interpretation: normal. Counseling: I had a detailed discussion with the patient and/or guardian regarding: the historical points, exam findings, and any diagnostic results supporting the discharge/admit diagnosis, radiology results, the need for outpatient follow up, a family practitioner, to return to the emergency department if symptoms worsen or persist or if there are any questions or concerns that arise at home. ED course: Patient hemodynamically stable. No focal tenderness on abdominal exam. No rigidity or guarding on physical exam. No signs of an acute abdomen. KUB does not reveal any free air under the diaphragm. The foreign body is in the same place as last imaging. Discussed with patient that there is nothing more that can be done at this time until it actually passes. If she were to worsen to come back for further evaluation again. Patient good with plan at this time.. 10/29 12:42 Order name: GILMA ALANIS; Complete Time: 13:37 iw Administered Medications: No medications were administered Disposition Summary: 10/29/21 13:51 Discharge Ordered Location: Home jr8 Problem: new jr8 Symptoms: have improved jr8 Condition: Stable jr8 Diagnosis - Foreign body of alimentary tract, part unspecified jr8 Followup: jr8 - With: Private Physician - When: 2 - 3 days - Reason: Recheck today's complaints, Continuance of care, Re-evaluation by your physician Discharge Instructions: - Discharge Summary Sheet jr8 - Swallowed Foreign Body, Adult jr8 Forms: - Medication Reconciliation Form jr8 - Thank You Letter jr8 - Antibiotic Education jr8 - Prescription Opioid Use jr8 Signatures: Dispatcher [employer] EDRajeev Munoz PA PA jr8 Chloe Joyner RN RN ap3
[2021-10-29 18:20] VITALS: BP 135/76
[2021-10-29 18:22] VITALS: TEMP 98.7; O2SAT 100
== END 2021-10-29 13:58 | disposition home or self-care (01) ==
LOC: ER 11:13
DX: T18.9XXA Foreign body of alimentary tract, part unspecified, initial encounter (principal); Z88.5 Allergy status to narcotic agent; Z88.8 Allergy status to other drugs, medicaments and biological substances
CPT/HCPCS: 74018; 99283